=== PATIENT | male | born 1955 | race African-American/Black ===

== ENCOUNTER 2017-12-07 22:37 | Inpatient (IN) | payer OTHER ==
[~2017-12-07] VITALS: Ht 152.4 cm; Wt 61.4 kg
--- NOTE | ~2017-12-07 | EKG ---
[address] [address] ELECTROCARDIOGRAM REPORT Name: SETH POTTS Room #: 463-P ADM IN M.R.#: [id number] Admission: 12/08/17 Attend Phys: Erwin Self Discharge: Date of : 55 Report #: [id number] THIS REPORT FOR: //name// [facility] ED Test Date: 2017-12-07 Test Time: 23:05:02 Pat Name: SETH CESARHAMMAD Department: Room: [facility] Gender: M Wine Manager: AMANDA : 1955 Requested By: Julio Cesar Vidal Order Number: [id number] MD: Eduard Paul Measurements Intervals [place] Rate: 129 P: 87 W[place]: 131 QRS: 79 QRSD: 90 T: -58 QT: 290 QTc: 425 Interpretive Statements Sinus tachycardia Nonspecific T abnormalities, lateral leads Artifact in lead(s) I,II,III,aVR,aVL,aVF,V1,V2,V3,V4,V5,V6 Compared to ECG 01/24/2016 00:39:19 No significant changes Electronically Signed On 12-08-2017 7:17:04 CDT by Eduard Paul [email or web address] <ELECTRONICALLY SIGNED> By: Eduard Paul MD 12/08/17716 04 04 Eduard Paul MD /EPI
--- NOTE | ~2017-12-07 | HC ---
[facility] [place] [address] CONSULTATION Name: SETH POTTS Maliha Room #: 463-P ADM IN ..#: [id number] Admission: 12/08/17 Attend Phys: Erwin Self Discharge: Date of : 55 Report #: [id number] THIS REPORT FOR: //name// CC: ULISSES physician/PCP FAM unknown Erwin Self DATE OF SERVICE: 12/08/2017 CHIEF COMPLAINT: Sacral and right ischial pressure ulcerations and quadriplegia. HISTORY OF PRESENT ILLNESS: This is a 61-year-old male patient with whom I am familiar from prior hospitalization. He had been admitted in 10/2017. The patient has a history of quadriplegia, chronic back pain. He has a history of respiratory failure with tracheostomy. During that hospitalization, he underwent surgical debridement of the sacral and right ischial pressure ulcerations and was started on a wound VAC. He has been doing well since that time. He was admitted this visit because of shortness of breath and diaphoresis. He denies any problems with his wounds. He has had ongoing care with a wound VAC. PAST MEDICAL HISTORY: Positive for history of quadriplegia secondary to spinal cord injury, diabetes, respiratory failure requiring tracheostomy, hepatitis C, as well as stage 4 pressure ulcerations. 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 SOCIAL HISTORY: The patient has a history of smoking cigarettes. Denies current use. Denies alcohol use. FAMILY HISTORY: Noncontributory. MEDICATIONS: Include albuterol and ipratropium, amitriptyline, baclofen, Caltrate, fentanyl, fluconazole, gabapentin, insulin, oxycodone, metoprolol, Zosyn, Xarelto, sertraline. ALLERGIES: LISINOPRIL, ALPRAZOLAM, CODEINE, ROFECOXIB. FAMILY HISTORY: Noncontributory. REVIEW OF SYSTEMS: CONSTITUTIONAL: Denies fever, chills, or weight loss. NEUROLOGICAL: The patient denies focal weakness. ENT: The patient denies earache, nasal drainage, sore throat. CARDIOVASCULAR: The patient denies chest pain, palpitations or diaphoresis. [address] [address] CONSULTATION Name: SETH POTTS Maliha Room #: 3[facility] IN ..#: [id number] Admission: 12/08/17 Attend Phys: Erwin Self Discharge: Date of : 55 Report #: [id number] PULMONARY: The patient does complain of some cough and some mild shortness of breath. GASTROINTESTINAL: The patient denies nausea, abdominal pain. ORTHOPEDIC: The patient is aware of the ulcerations. Other systems in a 14-point review of systems are negative. PHYSICAL EXAMINATION: VITAL SIGNS: At this time include temperature of 37.2, pulse rate 117, respiratory rate of 20, blood pressure 146/75. GENERAL: This is a chronically ill, very thin-appearing male patient who appears to be in no distress. HEENT: Head normocephalic. Extraocular movements intact. Pupils equal, round, and reactive to light and accommodation. Nose and throat are clear. NECK: Demonstrates tracheostomy capped. LUNGS: Diminished. HEART: Regular rhythm. ABDOMEN: Soft. Bowel sounds present. PELVIC: Region demonstrates a stage 4 sacral and right ischial pressure ulcerations that are healthy, clean and granulating, much improved since I last saw him. EXTREMITIES: Lower extremities show no evidence of current ulceration. CLINICAL IMPRESSION: 1. Stage 4 sacral and right ischial pressure ulceration. 2. Quadriplegia secondary to previous spinal cord injury. 3. Diabetes mellitus. 4. Respiratory failure. 5. Hepatitis C. RECOMMENDATIONS: At this point in time, we will continue [employer] wound VAC. He will need aggressive nutritional support to maximize wound healing and maintain glycemic control. He will need low air loss mattress, keep turning and repositioning and Prevalon boots to both lower extremities. I appreciate being asked to see him in consultation. <ELECTRONICALLY SIGNED> By: Santana Gomez MD 12/10/17 0738 [id number] 0003 Santana Gomez MD /nt
[~2017-12-07 22:37] MED LIST: ACETYLCYST100 MG/1 M INH; AMITRIPTYLINE H25 M2 PER TUBE; ARTIFICIAL TEA1 EACH INTRAOCULR; ASPIR 8181 MG PER TUBE; BARRIER CREAM TOP; BISCOLAX10 MG RECTAL; CALCIUM 600 +1 EAC1 PO; CENTRUM SILVER1 EAC2 PER TUBE; COLACE100 MG PER TUBE; DIFLUCAN200 MG IV; DILAUDID1 MG/1 ML IV; DUONEB 2.5-0.5 M3 ML INH; FENTANYL PATCH75 MCG TOP; FLAGYL500 MG IV; FUROSEMIDE40 MG/4 ML IV; GUIATUSSIN DAC473 ML PER TUBE; HEPARIN SO5000 UNIT/ SUBQ; HEPARIN SUBQ; HYDROCODONE-APA1 TA1 PER TUBE; ISOSOURCE 1.5250 ML PER TUBE; KLOR-CON 1010 MEQ PER TUBE; LASIX 40 MG TAB40 M2 IV; LEVOFLOXAC250 MG/50 IV; LINEZOLID600 MG; LIORESAL 10 MG10 MG PO; LOPRESSOR25 PO; METAMUCIL PAC1 UDPKT PER TUBE; METOPROLOL TARTRATE IV; MILK OF MA2400 MG/10 PER TUBE; MIRALAX17 GM PER TUBE; NEURONTIN600 MG PER TUBE; NORCO 7.5-3251 EACH PO; NOVOLOG100 UNIT/1 SUBQ; OMEPRAZOLE20 M1 PER TUBE; OXYCODONE HCL 55 MG PER TUBE; PAROEX473 ML PO; ROBITUSSIN15 MG/5 ML PER TUBE; SILVADENE20 GM TOP; TYLENOL325 MG PO; XARELTO10 MG PER TUBE; ZOLOFT50 MG PER TUBE; ZOSYN 3.3753.375 GM IV; ZYVOX600 MG/300 IV
[2017-12-07 22:46] VITALS: BP 143/86
[2017-12-07 23:43] LABS: BE(vivo) 2.1 mmol/L (-2 to +3); PO2 147.1 mmHg (80.0-100.0); pH 7.453 (7.360-7.450)
[2017-12-07 23:50] LABS: URINE BILIRUBIN NEGATIVE (Negative); URINE BLOOD 3+ (Negative); URINE CLARITY SL CLOUDY; URINE COLOR YELLOW; URINE GLUCOSE-RANDOM* NEGATIVE (Negative); URINE KETONES 3+ (Negative); URINE NITRITE-REFLEX NEGATIVE (Negative); URINE PROTEIN (DIPSTICK) 2+ (Negative); URINE SPECIFIC GRAVITY >= 1.030 (1.005-1.035); URINE UROBILINOGEN 0.2 E.U./dl (0.2-1.0)
[2017-12-07 23:57] LABS: ABSOLUTE NEUTROPHILS 7.5 thou/uL (1.4-8.2); BASOPHILS 0.3 % (0.0-2.0); EOSINOPHILS 0.2 % (0.0-3.0); HEMATOCRIT 38.1 % (42.0-52.0); HEMOGLOBIN 12.7 gm/dL (14.0-18.0); LYMPHOCYTES 10.9 % (24.0-44.0); MCH 29.3 pg (26.0-34.0); MCHC 33.2 g/dL (28.0-37.0); MCV 88.2 fL (80.0-100.0); MONOCYTES 9.2 % (1.0-8.0); PLATELET COUNT 330 thou/uL (150-400); POLYS 79.4 % (36.0-66.0); RBC 4.32 mil/uL (4.50-6.00); RDW 21.4 % (10.5-14.5); WBC 9.4 thou/uL (4.0-11.0)
[2017-12-08 00:07] LABS: URINE LEUKOCYTES-REFLEX 1+ (Negative)
[2017-12-08 00:09] LABS: URINE REDUCING SUBSTANCE 0 %
[2017-12-08 00:14] LABS: BACTERIA-REFLEX 1-9 Few /HPF (None Seen); CALCIUM OXALATE 0-3 Few /LPF (None Seen); HYALINE CASTS 0-3 Few /LPF (None Seen); MUCUS 4-6 Moderate strn/LPF (None Seen); SQUAMOUS None Seen /LPF (0-3); URINE RBC >20 Many /HPF (0-2)
[2017-12-08 00:15] LABS: YEAST-REFLEX Present (None Seen)
[2017-12-08 00:38] LABS: ANION GAP 7 mmol/L (7-16); BUN 14 mg/dL (7-18); CALCIUM 10.5 mg/dL (8.5-10.1); CHLORIDE 96 mmol/L (98-107); CO2 30 mmol/L (21-32); CREATININE 0.8 mg/dL (0.7-1.3); GLUCOSE 98 mg/dL (74-106); POTASSIUM 4.2 mmol/L (3.5-5.1); SODIUM 133 mmol/L (136-145)
[2017-12-08 00:46] LABS: TROPONIN-I <0.06 ng/mL (<0.06)
[2017-12-08 03:09] VITALS: BP 117/74
[2017-12-08 03:30] VITALS: BP 101/124
[2017-12-08] MEDS ORDERED: SYNTHROID50 MCG PO (03:56)
[2017-12-08 08:00] VITALS: BP 146/75
[2017-12-08 20:14] VITALS: BP 131/95
[2017-12-09 08:05] VITALS: BP 113/66
[2017-12-09 19:42] VITALS: BP 114/65
[2017-12-10 08:06] VITALS: BP 137/63
[2017-12-10 19:14] VITALS: BP 124/77
[2017-12-11 08:18] VITALS: BP 122/75
[2017-12-11] MEDS ORDERED: TYLENOL325 MG PO (09:27)
[2017-12-11] MEDS ORDERED: FLUCONAZOLE 10100 MG PO (09:27)
[2017-12-11] MEDS ORDERED: LIORESAL 10 MG10 MG PO (09:27)
[2017-12-11] MEDS ORDERED: LOPRESSOR25 PO (09:27)
[2017-12-11] MEDS ORDERED: XARELTO10 MG PER TUBE (09:27)
[2017-12-11] MEDS ORDERED: CALCIUM 600 +1 EAC1 PO (09:28)
[2017-12-11] MEDS ORDERED: AMITRIPTYLINE H25 M2 PER TUBE (09:28)
[2017-12-11] MEDS ORDERED: NEURONTIN600 MG PER TUBE (09:28)
[2017-12-11] MEDS ORDERED: ZOLOFT50 MG PER TUBE (09:28)
[2017-12-11] MEDS ORDERED: SYNTHROID50 MCG PO (09:28)
[2017-12-11] MEDS ORDERED: SILVADENE20 GM TOP (09:29)
[2017-12-11 11:07] LABS: HEMATOCRIT 33.1 % (42.0-52.0); HEMOGLOBIN 10.7 gm/dL (14.0-18.0); MCH 29.5 pg (26.0-34.0); MCHC 32.2 g/dL (28.0-37.0); MCV 91.5 fL (80.0-100.0); RBC 3.62 mil/uL (4.50-6.00); RDW 20.2 % (10.5-14.5); WBC 5.5 thou/uL (4.0-11.0)
[2017-12-11 19:59] VITALS: BP 132/78
[2017-12-12 13:52] VITALS: BP 142/85
[2017-12-12 19:39] VITALS: BP 130/78
[2017-12-13 08:47] VITALS: BP 109/75
[2017-12-13 11:50] VITALS: BP 109/75
[2017-12-13 12:57] VITALS: BP 109/75
== END 2017-12-13 16:09 | disposition home health service (06) | DRG 189 ==
LOC: ER 22:37 → EROBS 12-08 02:15 → 4W 12-08 03:02
PROVIDERS: Emergency Medicine; Hospitalist
DX: J96.21 Acute and chronic respiratory failure with hypoxia (principal); L89.154 Pressure ulcer of sacral region, stage 4; L89.314 Pressure ulcer of right buttock, stage 4; L89.224 Pressure ulcer of left hip, stage 4; G82.50 Quadriplegia, unspecified; N39.0 Urinary tract infection, site not specified; E46 Unspecified protein-calorie malnutrition; R65.10 Systemic inflammatory response syndrome (SIRS) of non-infectious origin without acute organ dysfunction; E11.9 Type 2 diabetes mellitus without complications; G89.29 Other chronic pain; M54.9 Dorsalgia, unspecified; B19.20 Unspecified viral hepatitis C without hepatic coma; B37.9 Candidiasis, unspecified; Z86.19 Personal history of other infectious and parasitic diseases; Z79.899 Other long term (current) drug therapy; Z88.8 Allergy status to other drugs, medicaments and biological substances; Z93.0 Tracheostomy status; Z85.21 Personal history of malignant neoplasm of larynx; Z92.21 Personal history of antineoplastic chemotherapy; Z87.891 Personal history of nicotine dependence; Z79.4 Long term (current) use of insulin; Z88.6 Allergy status to analgesic agent; Z93.3 Colostomy status; Z68.26 Body mass index [BMI] 26.0-26.9, adult
CPT/HCPCS: 10045

== ENCOUNTER 2018-04-20 15:31 | Inpatient (IN) | payer OTHER ==
[~2018-04-20] VITALS: Ht 165.1 cm; Wt 45.8 kg
--- NOTE | ~2018-04-20 | HC ---
[facility] [place] [address] CONSULTATION Name: POTTS,ANN A Room #: 459-P [facility] IN ..#: [id number] Admission: 04/20/18 ������������������ Attend Phys: Shaggy Ayoub MD Discharge: 04/29/18 ������������������ Date of : 55 Report #: [id number] THIS REPORT FOR: //name// CC: [facility]ISSES physician/PCP Shaggy Ayoub DATE OF SERVICE: 04/21/2018 CHIEF COMPLAINT: Sacral and ischial pressure ulcerations. HISTORY OF PRESENT ILLNESS: This is a 62-year-old male patient with whom I am familiar from multiple previous hospitalizations, who was admitted to the hospital through the Emergency Department for worsening shortness of breath and diaphoresis for the last 2 days. The patient is quadriplegic. He has a tracheostomy. He has had multiple evaluations for his sacral wounds. He has had previous surgical debridement. He was recently at [facility] and he returned home 2 days ago and has had shortness of breath since that time. ALLERGIES: ALPRAZOLAM, CODEINE, LISINOPRIL AND VIOXX. MEDICATIONS: Include Zosyn, Synthroid, Artificial Tears, Silvadene, Tylenol, Neurontin, Lopressor, Zoloft, Xarelto, Lioresal, Elavil and Caltrate. PAST MEDICAL HISTORY: The patient's past medical history is positive for quadriplegia, diabetes mellitus, respiratory failure, hepatitis C, stage 4 pressure ulcerations of the sacrum and ischium and chronic anemia. His quadriplegia is due to diskitis at the C3 through C5 level secondary to a streptococcal abscess. He has a history of epiglottic cancer and has previously been on chemotherapy. He has a history of dysphagia, requiring a PEG tube. He has a suprapubic catheter and a colostomy. SOCIAL HISTORY: The patient has had a history of smoking, which he quit in 2016. No history of alcohol use. FAMILY HISTORY: Noncontributory. REVIEW OF SYSTEMS: Reviewed and a 14-point review of systems is negative, other than that mentioned in the history of present illness. PHYSICAL EXAMINATION: VITAL SIGNS: At this time include temperature 34.8, pulse 112, respiratory rate of 20 and blood pressure 138/82. GENERAL: This is a chronically ill-appearing male patient who appears to be in mild discomfort. He has an audible stridor. HEENT: Head normocephalic. NECK: Demonstrates tracheostomy. [facility] [address] [place] [address] CONSULTATION Name: SETH POTTS Maliha Room #: 459-P [facility]#: [id number] Admission: 04/20/18 ������������������ Attend Phys: Shaggy Ayoub MD Discharge: 04/29/18 ������������������ Date of : 55 Report #: [id number] LUNGS: Coarse. Breath sounds are obscured by stridor. HEART: Tachycardic, without murmur. ABDOMEN: Soft. Suprapubic catheter and colostomy are noted. GENITOURINARY: Pelvic region demonstrates stage 4 pressure ulcerations of the sacrum and right ischial region. There is a mix of some granulation and fibrin; a little bit of odor noted as well. There is palpable bone in the base, but there is also good granulation tissue throughout. EXTREMITIES: Lower extremities demonstrate no breakdown on the lower extremities. NEUROLOGIC: The patient is quadriplegic. He is awake and alert. He does answer some questions. LABORATORY DATA: Sodium 130, potassium 4.3, chloride 94, BUN 9 and creatinine 0.5. Lactic acid is 1.0. Calcium is 8.5. C-reactive protein is markedly elevated at 235. Procalcitonin 0.18. White blood cell count 20.4 with a hemoglobin of 11.4 and hematocrit of 36.9. CLINICAL IMPRESSION: 1. Stage 4 pressure ulcerations to the sacrum and right ischium, chronic. 2. Probable underlying chronic osteomyelitis. 3. Pulmonary infection. 4. History of epiglottic cancer. RECOMMENDATIONS: At this point in time, a wound VAC may be beneficial to the sacral and right ischial ulcers. I think we will start with some Dakin's moist gauze, however, to get these areas cleaned up a little bit as there is some odor and drainage noted. He will need a low air loss mattress and q. 2 hour turning and repositioning and PRAFO boots to protect his heels bilaterally. He will need nutritional consult to maximize his wound healing and glycemic control. At this point in time, his pulmonary issues seem significant. He has previously had a surgical debridement. I am not sure if he would gain that much more with additional surgical debridement, although it could be considered once his pulmonary status has improved. I appreciate being asked to see the patient in consultation. ��������������������������������������������� ���������������������������������������� By: ��������������������������������������������� 1312 2331 Santana Gomez MD /nt
--- NOTE | ~2018-04-20 | HC ---
[facility] [place] [address] CONSULTATION Name: OPTTSVIDYAANN A Room #: 459-P ADM IN M.R.#: [id number] Admission: 04/20/18 ������������������ Attend Phys: Shaggy Ayoub MD Discharge: ������������������ Date of : 55 Report #: [id number] THIS REPORT FOR: //name// CC: [facility] physician/PCP Shaggy Ayoub TYPE OF REPORT: Pulmonary consultation. REFERRAL PHYSICIAN: Shaggy Ayoub M.D. REASON FOR REFERRAL: Pneumonia. HISTORY OF PRESENT ILLNESS: The patient is a 62-year-old [place] male who was brought to the Emergency Room with dyspnea. Chest x-ray showed increasing pleural effusion and infiltrates. The patient was admitted for pneumonia. A Pulmonary consultation was requested. The patient has an extensive medical history. In 2016, he was diagnosed of epiglottic cancer. He developed diskitis involving C3-C5 area due to Streptococcus abscess. This resulted in quadriplegia. He has required a tracheostomy ever since. He has since been to LTAC in the past. He currently resides at home, getting home health for trach care and on other daily activity care. He was last hospitalized in December 2017 for sepsis due to UTI. He has known stage 4 sacral decubital ulcers. He is in his normal state of health until one day prior to presentation. The patient noted to have fever, dyspnea along with a productive cough. Chest x-ray as mentioned above showing increase in the right-sided pleural effusion, right lower lobe infiltrates. Of note, the patient had prior chest x-ray showing chronic right-sided pleural effusion. He has also had infiltrates in the right side in the past. PAST MEDICAL HISTORY: As mentioned above. Also, has a history of diabetes mellitus, hepatitis C, malnutrition, chronic anemia, status post PEG tube, suprapubic catheter placement and colostomy. PAST SURGICAL HISTORY: As mentioned above. ALLERGIES: To ALPRAZOLAM, CODEINE, LISINOPRIL and ROFECOXIB, reactions not specified. MEDICATIONS: From home include baclofen, Neurontin, Zoloft and levothyroxine. FAMILY HISTORY: Noncontributory. [address] [address] CONSULTATION Name: SETH POTTS Room #: 459-P [facility] IN [facility]#: [id number] Admission: 04/20/18 ������������������ Attend Phys: Shaggy Ayoub MD Discharge: ������������������ Date of : 55 Report #: [id number] SOCIAL HISTORY: No recent tobacco or alcohol use. REVIEW OF SYSTEMS: As mentioned above. It is notable for progressive muscle debility, muscle atrophy and weakness. PHYSICAL EXAMINATION: GENERAL: The patient is awake, eyes are open. He does not verbalize. VITAL SIGNS: Temperature is 98.7 degrees Fahrenheit, pulse 120, respiratory rate is 20, blood pressure is 100/62 mmHg and saturation 98%. HEENT: Normocephalic and atraumatic. NECK: Status post tracheostomy. CHEST: Breath sounds are decreased due to poor effort, is absent in the right base. No obvious wheezes. Scattered crackles are heard in the bases. CARDIOVASCULAR: Normal S1 and S2. There are no obvious murmurs or gallop. Pulses are 2+/4+ bilaterally. ABDOMEN: Soft and nontender noted for PEG tube in the upper epigastric area. GENITOURINARY: Deferred. RECTAL: Deferred. EXTREMITIES: No cyanosis, clubbing or edema. MUSCULOSKELETAL: Notable for marked muscle atrophy. LABORATORY DATA: Showing moderate right-sided pleural effusion, infiltrates in the right lower lobe, left lung field relatively clear. Compared to the previous chest x-ray from 04/20/2018, there has been slight increase in right pleural effusion. Chest x-ray from December 2017 shows no infiltrates in the lung duron; however, mild right-sided pleural effusion is seen. Electrolytes are normal, creatinine is 0.6. WBC 11,800 and hemoglobin 8.8. Albumin 1.3. IMPRESSION: 1. Progressive right-sided infiltrates, right-sided pleural effusion in this 62-year-old Tamazight male. Pneumonia is likely. With the pleural effusion, atelectasis also likely present. 2. Quadriplegia due to diskitis involving C3-C5 due to streptococcal abscess. 3. History of epiglottic cancer in 2016. 4. Progressive debility and weakness due to above. 5. Chronic tracheostomy. Wonder if the patient will benefit from positive pressure ventilation given quadriplegia chronically. 6. Chronic right-sided pleural effusion. As mentioned above. It is worse on this admission. Need to rule out complicated pleural effusion. 7. History of diabetes mellitus type 2. 8. Hepatitis C. 9. Stage 4 sacral decubitus ulcer. 10. Severe protein-calorie malnutrition. 11. Dysphagia, status post percutaneous endoscopic gastrostomy. 12. Status post colostomy, status post suprapubic catheter. [facility] [address] [place] [address] CONSULTATION Name: SETH POTTS Room #: 459-P ADM IN M.R.#: [id number] Admission: 04/20/18 ������������������ Attend Phys: Shaggy Ayoub MD Discharge: ������������������ Date of : 55 Report #: [id number] RECOMMENDATIONS: The patient will benefit from diagnostic thoracentesis on the right. Agree with broad-spectrum antibiotics. Recent culture grew Staphylococcus aureus, sensitivities pending. As mentioned above, we would also strongly consider positive pressure ventilation, perhaps during sleep or p.r.n. in this patient with quadriplegia. DVT and GI prophylaxis will be addressed. Thank you for this consultation. ��������������������������������������������� ���������������������������������������� By: ��������������������������������������������� 1532 2219 Lele Weeks MD /nt
[2018-04-20 15:31] VITALS: BP 118/67
[~2018-04-20 15:31] MED LIST changes: +FLUCONAZOLE 10100 MG PO; +SYNTHROID50 MCG PO
--- NOTE | 2018-04-20 15:55 | NUR ---
IV RUE IN PLACE BY [facility] REQUESTED IV TEAM REQUESTED WELL
--- NOTE | 2018-04-20 16:07 | NUR ---
IV TEAM AT BEDSIDE
[2018-04-20 16:37] LABS: HEMATOCRIT 22.2 % (42.0-52.0); HEMOGLOBIN 6.9 gm/dL (14.0-18.0); MCH 24.5 pg (26.0-34.0); MCHC 31.1 g/dL (28.0-37.0); MCV 78.8 fL (80.0-100.0); PLATELET COUNT 632 thou/uL (150-400); RBC 2.82 mil/uL (4.50-6.00); RDW 21.7 % (10.5-14.5); WBC 20.4 thou/uL (4.0-11.0)
[2018-04-20 16:47] LABS: ANION GAP 2 mmol/L (7-16); BUN 9 mg/dL (7-18); CALCIUM 8.5 mg/dL (8.5-10.1); CHLORIDE 94 mmol/L (98-107); CO2 34 mmol/L (21-32); CREATININE 0.5 mg/dL (0.7-1.3); GLUCOSE 88 mg/dL (74-106); POTASSIUM 4.3 mmol/L (3.5-5.1); SODIUM 130 mmol/L (136-145)
[2018-04-20 16:57] LABS: TROPONIN-I <0.06 ng/mL (<0.06)
[2018-04-20 17:05] LABS: ABSOLUTE NEUTROPHILS 18.6 thou/uL (1.4-8.2)
[2018-04-20 17:06] LABS: ANISOCYTOSIS 2+; HYPOCHROMASIA 1+; MICROCYTES 1+
[2018-04-20 17:07] LABS: POIKILOCYTOSIS SLIGHT; POLYCHROMASIA OCCASIONAL
[2018-04-20 17:46] LABS: APTT 33.8 Seconds (24.5-32.8); INR 1.1; PROTIME 11.9 Seconds (9.3-11.4)
[2018-04-20 18:10] VITALS: BP 124/64
[2018-04-20 18:26] VITALS: BP 121/66
--- NOTE | 2018-04-20 19:10 | EKG ---
[address] [address] ELECTROCARDIOGRAM REPORT Name: SETH POTTS Room #: 459- ADM IN .R.#: [id number] ������������������ Admission: 04/20/18 ������������������ Attend Phys: Shaggy Ayoub MD Discharge: ������������������ Date of : 55 Report #: [id number] ����������������������������������������������������������������� [id number] THIS REPORT FOR: //name// [facility] ED Test Date: 2018-04-20 Test Time: 15:38:21 Pat Name: SETH POTTS Department: Room: [facility] Gender: M Newspaper Carrier: : 1955 Requested By: Julio Cesar Vidal Order Number: [id number] MD: Delbert Lamar Measurements Intervals [place] Rate: 131 P: 78 [place]: 112 QRS: 76 QRSD: 64 T: QT: 302 QTc: 446 Interpretive Statements Sinus tachycardia Nonspecific ST-T wave changes AC noise noted Compared to ECG 12/07/2017 23:05:02 No significant changes Electronically Signed On 04-20-2018 19:10:32 SCIENTIFIC PUBLICATIONS EDITOR by Delbert Lamar [email or web address] ��������������������������������������������� <ELECTRONICALLY SIGNED> ���������������������������������������� By: Delbert Lamar MD ��������������������������������������������� 04/20/18 1910 1538 1538 Delbert Lamar MD /EPI
[2018-04-20 20:52] VITALS: BP 105/62
[2018-04-21 02:38] VITALS: BP 122/66
[2018-04-21] MEDS ORDERED: OXYCODONE HCL15 MG PO (03:40)
[2018-04-21 07:55] VITALS: BP 118/64
--- NOTE | 2018-04-21 08:51 | NUR ---
PROGRESS PT ALERT AND ORIENTED, RATING PAIN TO NECK AND BACK AT A 5 TO 8 TAKING MORPHINE WITH EFFECT REQUESTING IT EVERY FEW HOURS PICTURES OF WOUNDS TO RIGHT BUTTOCK AND SACRUM PHOTOGRAPHED AND MEASURED REDRESSED WITH WET TO DRY DRESSING WOUND BED HAD SOME YELLOW FIBRINOGEN TISSUE SOME GRANULATION TISSUE NOTED BLOODY DISCHARGE NO ODOR DETECTED. CONTINUE TO MONITOR TURN Q2HRS AND PRN.
[2018-04-21 09:50] VITALS: BP 136/71; BP 92/61
[2018-04-21 12:28] LABS: URINE BILIRUBIN NEGATIVE (Negative); URINE BLOOD NEGATIVE (Negative); URINE CLARITY CLEAR; URINE COLOR YELLOW; URINE GLUCOSE-RANDOM* NEGATIVE (Negative); URINE KETONES TRACE (Negative); URINE LEUKOCYTES-REFLEX NEGATIVE (Negative); URINE NITRITE-REFLEX NEGATIVE (Negative); URINE UROBILINOGEN 0.2 E.U./dl (0.2-1.0)
[2018-04-21 12:33] LABS: URINE PROTEIN (DIPSTICK) 1+ (Negative)
--- NOTE | 2018-04-21 12:43 | NUR ---
Assumed pt care at 0645. pt having issues keeping o2 sat up. worked with resp to have treatments ordered q4. also put o2 on trach with danilo. now staying in the 90's. given one unit of blood and will have h/h redrawn. will continue to [facility]
[2018-04-21 13:49] LABS: HEMATOCRIT 36.9 % (42.0-52.0)
[2018-04-21 13:50] LABS: HEMOGLOBIN 11.4 gm/dL (14.0-18.0)
[2018-04-21 13:56] VITALS: BP 138/82
--- NOTE | 2018-04-21 15:40 | NUR ---
PT ADMITTED RELATED TO HCAP AND ANEMIA. DAVID REVIEWED CHART AND SPOKE WITH CARE TEAM. CM MET WITH PT AT BEDSIDE THIS DAY PT WAS GETTING O2 THROUGH HIS TRACH AND WAS HAVING DIFFULCTY SPEAKING. CM CALLED PT'S CAREGIVER ANATOLY AND SHE INDIATED THAT PT RESIDES IN A HOUSE WITH A RAMP TO ENTER. SHE INDICATED PT HAD HCBS THROUGH [facility] [employer] 7 DAYS A WEEK. SHE INDICATED THAT HAD BEEN ON SERVICE WITH [facility] DR[facility] CLIP[facility] AND THAT THEY WOULD LIKE TO USE THEM AGAIN UPON DC. ANATOLY ASKED IF PT COULD GET HOME O2 UPON DC, CM INDICATED THAT CM WOULD CONVEY QUESTION TO CARE TEAM. CM TO FOLLOW INDICATED WITH DC PLANNING.
[2018-04-21 20:03] VITALS: BP 127/34
[2018-04-22 04:58] VITALS: BP 116/50
[2018-04-22 05:38] LABS: HEMATOCRIT 27.9 % (42.0-52.0); MCH 26.1 pg (26.0-34.0); MCHC 31.6 g/dL (28.0-37.0); MCV 82.4 fL (80.0-100.0); RBC 3.39 mil/uL (4.50-6.00); RDW 19.9 % (10.5-14.5); WBC 15.1 thou/uL (4.0-11.0)
[2018-04-22 05:40] LABS: HEMOGLOBIN 8.8 gm/dL (14.0-18.0)
[2018-04-22 05:54] LABS: ALBUMIN 1.4 g/dL (3.4-5.0); CREATININE 0.5 mg/dL (0.7-1.3); PHOSPHORUS 2.4 mg/dL (2.5-4.9); POTASSIUM 3.7 mmol/L (3.5-5.1)
[2018-04-22 07:16] VITALS: BP 124/67
--- NOTE | 2018-04-22 07:54 | NUR ---
Pt. rested quietly at intervals during the night when checked on during frequent rounds. He was given pain meds for c/o back pain (see emar) with partial relief of pain noted. Tube feeding patent upon ausculation and in- fusing without difficulty. Head of the bed is elevated. He has had to be suctioned at times during the shift and tolerated it well. Pt. turned and repositioned.
--- NOTE | 2018-04-22 10:02 | HC ---
[facility] [place] [address] CONSULTATION Name: POTTSSETH IVORY Maliha Room #: 459-P [facility] IN M.R.#: [id number] Admission: 04/20/18 ������������������ Attend Phys: Shaggy Ayoub MD Discharge: ������������������ Date of : 55 Report #: [id number] THIS REPORT FOR: //name// CC: [facility] physician/PCP Shaggy Ayoub DATE OF SERVICE: 04/21/2018 ATTENDING PHYSICIAN: Dr. Ayoub. REASON FOR CONSULTATION: Pneumonia. Sacral decubitus. Antibiotic management. HISTORY OF PRESENT ILLNESS: A 62-year-old -Citizen Of [place] man, admitted with increasing shortness of breath and sputum production as well as fever. The patient is quadriplegic secondary to cervical spine infection in the year 2016 and status post permanent tracheostomy, gastrostomy, diverting colostomy, suprapubic cystostomy, chronic sacral decubitus, recent episode of pneumonia [facility]. DRUG ALLERGIES: ALPRAZOLAM, CODEINE, LISINOPRIL, ROFECOXIB. MEDICATIONS: The patient is currently on treatment with Zosyn 3.375 grams IV every 8 hours, vancomycin 750 mg IV every 12 hours, also receiving treatment with sertraline, levothyroxine, p.r.n. morphine sulfate, Atrovent/albuterol inhalation treatments, gabapentin, baclofen, pantoprazole. The patient has received levofloxacin 750 mg IV single dose. 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 Chronic tracheostomy. Status post percutaneous gastrostomy, suprapubic cystostomy, diverting colostomy, sacral decubitus, chronic with evidence of previous osteomyelitis; anemia of chronic disease, question gastrointestinal bleeding. SOCIAL HISTORY: See H and P, old records. FAMILY HISTORY: See H and P, old records. REVIEW OF SYSTEMS: As above. PHYSICAL EXAMINATION: GENERAL: Chronically ill-appearing man. VITAL SIGNS: Temperature maximum 99.1, pulse 90, respirations 20, BP as low as 93/69, currently 119/64, O2 saturation 98% on FiO2 of 35%. HEENMT: Head normocephalic, atraumatic. Pupils reactive, arcus cornealis. Mouth, missing teeth. [facility] [address] [place] [address] CONSULTATION Name: SETH POTTS Maliha Room #: 459-P [facility] IN [facility]#: [id number] Admission: 04/20/18 ������������������ Attend Phys: Shaggy Ayoub MD Discharge: ������������������ Date of : 55 Report #: [id number] NECK: Revealed tracheostomy in place. LUNGS: Few rhonchi. HEART: S1, S2. No gallop or murmur. ABDOMEN: With diverting colostomy, suprapubic cystostomy and percutaneous gastrostomy. Stool in colostomy. NEUROLOGIC: Revealed quadriplegia and atrophy of muscle groups. BACK: Reveals stage IV sacral decubitus with exposed deep structures. EXTREMITIES: No clubbing, cyanosis. Atrophy of muscle groups. LABORATORY DATA: Sodium 130, potassium 4.3, BUN 9, creatinine 0.5. Protime 11.9 seconds. WBC elevated at 20,400, hemoglobin 6.9 g/dL, platelets 632,000. The white blood cell count differential revealed 91% segmented neutrophil. Influenza A and B rapid tests were negative. MRSA screen pending. MICROBIOLOGY DATA: Sputum and blood cultures were obtained and those are pending at the time of this dictation. IMAGING: Chest x-ray obtained, revealed right basilar pulmonary infiltrate, not present previously. ASSESSMENT: 1. Right lower lobe pneumonia -- healthcare-associated pneumonia. 2. Chronic tracheostomy. 3. Quadriplegia secondary to cervical spine infection with Streptococcus species. 4. Status post gastrostomy, diverting colostomy and suprapubic cystostomy. 5. Stage 4 sacral decubitus and previous history of osteomyelitis. 6. Severe anemia. 7. Severe leukocytosis. SUGGESTIONS: Recommend continued treatment with vancomycin and Zosyn, may redose Levaquin. Obtain sputum and blood cultures as well as urinalysis, urine culture, MRSA screen. ESR and CRP also have been ordered. Dr. Ayoub, thank you for requesting my suggestions. ��������������������������������������������� <ELECTRONICALLY SIGNED> ���������������������������������������� By: Luke Paul MD ��������������������������������������������� 04/22/18 1002 0952 1331 Luke Paul MD /nt
--- NOTE | 2018-04-22 12:37 | NUR ---
CARE TEAM INDICATED THAT PT WILL LIEKLY BE HERE OVER THE WEEKEND. PT HAD BEEN ON SERVICE WITH [facility] NURSING HOME ADMINISTRATOR AND IF PT IS TO REUTN HOME HE WOULD LIKE TO USE THEM AGAIN UPON DC. PHONE: FAX: . CM TO FOLLOW INDICATED WITH DC PLANNING.
--- NOTE | 2018-04-22 12:55 | NUR ---
Nutrition: Current tube feeds meet 118% kcal needs, phos dropping. Pt appears to be at risk for refeeding syndrome. Severe malnutrition. REC decrease rate of tube feeds to 50 mL/hr and add Josué supplement BID to assist with wound healing.
[2018-04-22 14:27] VITALS: BP 131/78
--- NOTE | 2018-04-22 17:23 | NUR ---
WOUND CONSULT: PT. WAS SEEN TODAY BY DR. GUTIÉRREZ AND MYSELF. PT. IS WELL KNOWN TO THE WOUND CARE TEAM. PT. HAS RESOLVING STAGE 4 PRESSURE ULCERS TO HIS SACRUM AND RIGHT ISCHIAL TUBEROSITY. THERE ARE NO SIGNS OR SYMPTOMS OF INFECTION NOTED AT THIS TIME. RECOMMENDATIONS: WOUND CARE TO ALL SITES: GENTLY CLEANSE AREA WITH WOUND CLEANSER OR NORMAL SALINE, PACK WITH DAKIN MOIST KERLIX, COVER WITH ABD, SECURE WITH TAPE, COMPLETE CARES DAILY AND PRN. TURN Q2 HOURS KEEP PT. OFF WOUNDS MUCH POSSIBLE KEEP ON MAGDALENO MATRESS. PT. AND STAFF NURSE WERE INSTRUCTED ON PLAN OF CARE.
[2018-04-22 20:00] VITALS: BP 145/86
[2018-04-23 04:00] VITALS: BP 109/63
--- NOTE | 2018-04-23 04:58 | NUR ---
Pt. rested quietly at short intervals during the night when checked on during frequent rounds. Pt. heart rate was staying up in the 130's early part of the shift. Carmen DEMPSEY was called and notified with no new orders. Pain meds given for c/o pain to his back (see emar) with some relief noted. Pt. turned and repositioned. Bed alarm is on.
[2018-04-23 08:00] VITALS: BP 105/57
[2018-04-23 15:00] VITALS: BP 133/84
--- NOTE | 2018-04-23 18:37 | NUR ---
VSS-AFEBRILE. LUNGS COURSE IN ALL [place] BILATERALLY. COPIUS AMOUNTS OF WHITE SPUTUM FROM MOUTH AND TRACH. C/O GENERALIZED ALL OVER BODY PAIN. DR GONZALES ORDERED IV MORPHINE, PARTIAL RELIEF NOTED WITH ADMINISTRATION. ST CONSULT COMPLETED, SPEAKING VALVE AT BEDSIDE, ONLY TO BE USED IF RN, RT, OR ST IS IN ROOM WITH PATIENT. ORAL CARE AND TURNS EVERY TWO HOURS. TOLERATING TUBE FEEDING WITH NO RESIDUAL. ENCOURAGE PATIENT TO WORK ON COUGHING AND DEEP BREATHING TO HELP EXPECTORATE SECRETIONS, VERBALIZED UNDERSTANDING. CALLS APPROPRIATELY FOR ANY NEEDED ASSISTANCE.
[2018-04-23 20:01] VITALS: BP 127/78
[2018-04-24 03:30] VITALS: BP 125/75
--- NOTE | 2018-04-24 04:37 | NUR ---
Pt. rested quietly at intervals during the night when checked on during frequent rounds. He c/o chronic back pain and has been given pain meds (see emar) with some relief noted. Peg tube is patent upon auscultation and tube feeding infusing without difficulty. Pt. turned and repositioned. Bed alarm is on.
[2018-04-24 06:35] LABS: HEMOGLOBIN 8.8 gm/dL (14.0-18.0); MCH 26.3 pg (26.0-34.0); MCHC 31.4 g/dL (28.0-37.0); MCV 83.5 fL (80.0-100.0); RBC 3.35 mil/uL (4.50-6.00); WBC 11.8 thou/uL (4.0-11.0)
[2018-04-24 06:36] LABS: ALBUMIN 1.3 g/dL (3.4-5.0); CALCIUM 8.7 mg/dL (8.5-10.1); CREATININE 0.6 mg/dL (0.7-1.3); PHOSPHORUS 1.9 mg/dL (2.5-4.9); POTASSIUM 4.8 mmol/L (3.5-5.1)
[2018-04-24 07:45] VITALS: BP 106/62
--- NOTE | 2018-04-24 14:36 | NUR ---
TOWARDS POC PT A/O X4, VSS, AFEBRILE. PAIN MANAGED BY MEDS. ON CONT. TUBE FEEDING AT 55ML/HR GOAL RATE. NO RESIDUAL VOLUME NOTED. SUPRA CATH CARE AND COLOSTOMY CARE PROVIDED. PRN SUCTIONING DONE. PT HAD PICC LINE PLACEMENT THIS AFTERNOON. WOUND CARE AND DRESSING DONE. NO CONCERNS VOICED. WILL CONTINUE TO MONITOR.
--- NOTE | 2018-04-24 14:37 | NUR ---
CONSULTED TO PLACE A PICC FOR A PATIENT NEEDING MULTIPLE IV MEDS AND POSSIBLE DICHARGE WITH LINE IN THE NEAR FUTURE. ORDER AND CONSENT NOTED. THE PROCEDURE WELL BENIFITS AND RISKS DISCUSSED WITH THE PATIENT AND HE EXPRESSED UNDERSTANDING. DILATERAL ARMS WERE CONTRACTED AND DIFFICULT TO POSITION. A #5F DOUBLE LUMEN POWER PICC WAS PLACED PER HOSPITAL POLICY AFTER A BEDSIDE TIMEOUT WAS COMPLETE. THE LINE WAS TRIMMED TO 42C AND ADVANCED WITHOUT DIFFICULTY ON THE 2ND ATTEMPT. A STAT CHEST XRAY WAS ORDERED TO CONFIRM PLACEMENT. LINE NOTED TO BE IN THE SVC AND IN GOOD POSITION BY THE RADIOLOGIST. LINE RELEASED FOR USE
[2018-04-24 17:13] LABS: BE(vivo) 7.2 mmol/L (-2 to +3); PO2 63.9 mmHg (80.0-100.0); pH 7.451 (7.360-7.450); sO2 93.1 % (92.0-98.0)
[2018-04-24 19:29] VITALS: BP 134/86
[2018-04-25 03:15] VITALS: BP 94/50
[2018-04-25 05:41] LABS: HEMATOCRIT 23.7 % (42.0-52.0); HEMOGLOBIN 7.3 gm/dL (14.0-18.0); MCH 25.6 pg (26.0-34.0); MCHC 30.8 g/dL (28.0-37.0); MCV 83.1 fL (80.0-100.0); RBC 2.86 mil/uL (4.50-6.00); RDW 20.4 % (10.5-14.5)
[2018-04-25 05:49] LABS: CALCIUM 8.1 mg/dL (8.5-10.1); CREATININE 0.7 mg/dL (0.7-1.3); POTASSIUM 4.2 mmol/L (3.5-5.1)
[2018-04-25 05:52] LABS: APTT 35.4 Seconds (24.5-32.8); INR 1.1; PROTIME 11.4 Seconds (9.3-11.4)
[2018-04-25 08:00] VITALS: BP 98/55
--- NOTE | 2018-04-25 12:46 | NUR ---
Recommend recheck phosphorus and replace if needed. Recommend daily checks of phos, Mg, and K until labs have stabilized.
--- NOTE | 2018-04-25 14:46 | NUR ---
WOUND FOLLOW UP: PT. WAS SEEN TODAY BY DR. GUTIÉRREZ AND MYSELF. PT. WOUND'S ARE CLINICALLY BETTER TODAY. PT. DRESSING WERE CHANGED AND PT. HAD A VERY HARD TIME WITH TURNING TO ALLOW THIS TO HAPPEN. RECOMMENDATIONS: CONTINUE WITH CURRENT PLAN OF CARE. PT. AND STAFF NURSE WERE INSTRUCTED ON PLAN OF CARE.
[2018-04-25 15:00] VITALS: BP 93/53
--- NOTE | 2018-04-25 15:03 | NUR ---
CARE TEAM INDICATED THAT PT IS TO HAVE A THORACENTESIS THIS DAY. CM TO FOLLOW INDICATED WITH DC PLANNING.
[2018-04-25 19:15] VITALS: BP 91/50
--- NOTE | 2018-04-25 19:34 | NUR ---
PT ALERT AND ORIENTED TIMES FOUR. VSS, 100% TRACH, SR ON TELE. C/O BACK PAIN PRN PAIN MEDICATION GIVEN SEVERAL TIMES THIS SHIFT WITH SOME RELEIF. WOUND CARE DONE BY WOUND TEAM TODAY. PT TURNED FREQUENTLY THIS SHIFT. PT SLOWLY PROGRESSING TOWARDS POC GOALS.
--- NOTE | 2018-04-26 04:09 | NUR ---
Pt. rested at short intervals during the night when checked on during frequent rounds. He c/o chronic back pain and was given pain meds (see emar) with some relief of pain noted. Peg tube patent upon auscultation and tube feeding in- fusing without difficulty. Pt. turned and repositioned. Bed alarm is on.
[2018-04-26 07:30] VITALS: BP 119/66
--- NOTE | 2018-04-26 13:37 | NUR ---
dp sent referral to [facility] sometime this week. DP will call facility to ensure delivery of faxed referral.
[2018-04-26 14:10] VITALS: BP 97/59
--- NOTE | 2018-04-26 14:56 | NUR ---
CARE TEAM HAD DISCUSSED POSSIBLE NEED FOR LTAC UPON DISHCARGE. CM INDICATED THAT PT HAD BEEN TO [facility] IN THE PAST. REFERRAL WAS SENT FOR REVIEW FOR POSSIBLE ADMISSION. CM MET WITH PT AT BEDSIDE TO DISCUSS RECOMMENDATION AND POSSIBLE REFERRAL FOR ADMISSION. CM WASN'T ABLE TO UNDERSTAND WHAT PT WAS SAYING. CM CALLED PT'S CAREGIVER ANATOLY AND INDICATED THE ABOVE AND SHE INDICATED THAT PT WOULD NOT BE GOING TO A NURSING FACILITY AND PT WOULD DEFINATLY NOT BE RETURNING TO [facility]. CM CALLED AND NOTIFIED LINDESY THAT WE WOULD NOT BE NEEDING AN ONSIGHT VISIT TOMORROW. CM TO NOTIFY CARE TEAM AND FOLLOW INDICATED WITH DC PLANNING.
--- NOTE | 2018-04-26 16:40 | NUR ---
TOWARDS POC PT A/O X4, VSS, AFEBRILE, PAIN MANAGED BY MEDS. REMAINED IN O2 VIA TRACH SHIELD ON 10L O2. ON CONT. TUBE FEEDING AT 55ML/HR GOAL. NO RESIDUAL VOLUME NOTED, TOLERATING WELL. WOUND CARE AND DRESSING DONE. REMAINED IN ISOLATION. SOFT TOUCH CALL LIGHT IN PLACE. TURNS AND REPOSITIONING Q2 HRS. WILL CONTINUE TO MONITOR.
[2018-04-26 19:55] VITALS: BP 102/59
[2018-04-27 03:12] VITALS: BP 98/56
--- NOTE | 2018-04-27 07:02 | NUR ---
Assumed care at 1845. Pt resting in bed. No identified needs at the moment. Will continue to monitor.
[2018-04-27 07:20] VITALS: BP 111/66
--- NOTE | 2018-04-27 08:54 | NUR ---
WOUND FOLLOW UP: PT. WAS SEEN ON 04/26/[address] GUTIÉRREZ AND MYSELF. PT. DRESSING WERE C/D/I AT THIS TIME. PT. HAS A VERY HARD TIME WITH WOUND CARES DUE RESPIRATORY STATUS. RECOMMENDATIONS: CONTINUE WITH CURRENT PLAN OF CARE. PT. AND STAFF NURSE WERE INSTRUCTED ON PLAN OF CARE.
[2018-04-27 13:55] VITALS: BP 108/71
--- NOTE | 2018-04-27 15:01 | NUR ---
TOWARDS POC PT A/O X4, VSS, AFEBRILE. PAIN MANAGED BY MEDS. -SEE MAY. ON CONTINUOS PULSE OX NO ALARMS NOTED. REMAINED ON TRACH SHIELD ON 10L O2. CONT. TUBE FEEDING AT 55MLS GOAL ONGOING, NO RESIDUAL VOLUME NOTED. SUPRA PUBIC AND COLOSTOMY CARE GIVEN, CLEANED AND PATENT. ISOLATION REMAINED. PRN TRACH CAP FOR CONVERSATION. Q2 TURNS. PT REFUSED WOUND DRESSING THIS AM. WILL TRY AGAIN THIS PM. NO CONCERNS VOICED. WILL CONTINUE TO MONITOR.
--- NOTE | 2018-04-27 15:08 | NUR ---
CM SPOKE WITH PT'S CAREGIVER REBECCAET THIS AM AND SHE ASKED ABOUT DC PLANNING. CM INDICATED THAT CM HAD MEETING WITH CARE TEAM AT 11:00 AND THAT CM WOULD CONVEY THAT SHE WOULD PREFER THAT PT NOT GO FOR A POST ACUTE CARE STAY. DR. GONZALES CALLED AND SPOKEW WITH HER AND INDICATED WHY THEY WERE RECOMMENDING LTAC UPON DC. HE REITERATED THAT PT IS A&O X4 AND ABLE TO MAKE OWN CHOICE AT HIS TIME. PHYSICIAN SPOKE WITH PT. CM TO FOLLOW INDICATED WITH DC PLANNING.
[2018-04-27 20:00] VITALS: BP 195/50; BP 95/50
[2018-04-28 04:40] VITALS: BP 195/50; BP 98/56
--- NOTE | 2018-04-28 08:04 | NUR ---
progress pt a/o x4 reporting pain an 8 to back and sacrum taking oxycodone and morphine with slight effect. iv antibiotics continue, tf infusing at 55 cc hr and flushed with 150cc h20 as ordered turned q2hrs continue to monitor
[2018-04-28 08:14] VITALS: BP 112/62
[2018-04-28 08:54] LABS: ALBUMIN 1.3 g/dL (3.4-5.0); CALCIUM 8.7 mg/dL (8.5-10.1); CREATININE 0.6 mg/dL (0.7-1.3); PHOSPHORUS 3.4 mg/dL (2.5-4.9); POTASSIUM 4.3 mmol/L (3.5-5.1)
--- NOTE | 2018-04-28 12:35 | NUR ---
YESTERDAY EVENING PT'S FAMILY VISITED AND AGAIN INDICATED THAT THEY WOULD PREFER THAT PT NOT GO TO [facility] THEY FEEL PT'S DEVELOPED SORE FORM A STAY THERE. CM INDICATED THAT CARE TEAM WORKING WITH PT AND THEM O DETERMINE DC DESTINATION BUT THAT PT IS A&O AND ABLE TO MAKE OWN CHOICES AT THIS TIME. THEY INDICATED THAT THEY WOULD BE RECEPTIVE TO REFERRAL BEING SENT TO [facility] FOR POSSIBLE ADMISSION. CM TO [facility] INDICATED WITH DC PLANNING.
--- NOTE | 2018-04-28 16:08 | NUR ---
WOUND FOLLOW UP: PT. WAS SEEN TODAY BY DR. GUTIÉRREZ AND MYSELF. PT. DRESSING ARE C/D/I AT THIS TIME. PT. HAS NO COMPLAINTS AT THIS VISIT. RECOMMENDATIONS: CONTINUE WITH CURRENT PLAN OF CARE. PT. AND STAFF NURSE WERE INSTRUCTED ON PLAN OF CARE.
--- NOTE | 2018-04-28 16:14 | NUR ---
REFERRAL HAD BEEN SENT TO [facility] PER FAMILY REQUEST. [facility] INDICATED THAT THEY ARE ABLE TO ACCEPT PT ONCE MEDICALLY STABLE. CM ATTEMPTED TO SPEAK WITH PT BUT HE WAS SLEEPING. CM CALLED CAREGIVER TACHET AND NOTIFIED HER WELL. CM TO FOLLOW UP WITH PT AND CAREGIVER. CM MENTIONED POSSIBLE DISHCARGE WEDNESDAY. CM TO FOLLOW INDICATED WITH DC PLANNING.
[2018-04-28 18:03] VITALS: BP 124/80
[2018-04-28 20:13] VITALS: BP 113/62
--- NOTE | 2018-04-29 05:11 | NUR ---
Pt. has been up all night watching television. He c/o chronic back pain and is constantly asking staff for pain medications. Pain meds given as ordered (see emar) with some to little relief of pain. G-tube patent upon auscultation and tube feeding infusing without difficulty. Head of the bed elevated.
[2018-04-29 06:59] VITALS: BP 121/67
[2018-04-29 08:00] VITALS: BP 100/55
[2018-04-29] MEDS ORDERED: ZOSYN 3.373.375 GM/1 IV (09:49)
[2018-04-29] MEDS ORDERED: VANCOMYCIN1 GM/1001 IV (09:50)
[2018-04-29] MEDS ORDERED: OXYCODONE HCL15 MG PO (09:50)
--- NOTE | 2018-04-29 14:28 | NUR ---
PHYSICIAN INDICATED THAT PT IS MEDICALLY STABLE TO DISCHARGE TO [facility] TODAY. CM NOTIFIED PT AND HIS CAREGIVER TACHKRYSTEN AND BOTH ARE AWARE AND AGREEABLE. CM CALLED AND ARRANGED TRANSPORT FOR STRETCHER TRANSPORT THROUGH [facility] TRIP #[id number] FOR BETWEEN NOW AND 171. CHART COPY MADE AND ORDERS FAXED. REPRORT TO BE CALLED TO . NO OTHER CM INTERVENTION INDICATED AT THIS TIME. CASE CLOSED.
[2018-04-29 15:00] VITALS: BP 112/68
--- NOTE | 2018-04-29 17:15 | NUR ---
Pt stable, has chronic back pain, pain medication given routinely but to little relief. Head of bed is elevated, morning care done. Has a G-tube with Jevity 1.5 running at 55, no issues or complication noted. Maintained on isolation, tracheostomy care done, pt is able to suction himself as well. Colostomy bag in place and draining well. Suprapubic catheter intact and draining light yellow urine. Wound care done today. Right upper arm PIC line patenet and intact. Report given to nurse at [facility] pt is now dc
== END 2018-04-29 15:30 | DRG 871 ==
LOC: ER 15:31 → EROBS 17:24 → 4W 17:24
PROVIDERS: Emergency Medicine; Hospitalist; Internal Medicine Infectious Disease; Internal Medicine Pulmonary Disease; ADMIT Internal Medicine
PROC: 30233N1 Transfusion of Nonautologous Red Blood Cells into Peripheral Vein, Percutaneous Approach (ICD-10-PCS; principal; 2018-04-21)
PROC: 02HV33Z Insertion of Infusion Device into Superior Vena Cava, Percutaneous Approach (ICD-10-PCS; 2018-04-24)
DX: A41.02 Sepsis due to Methicillin resistant Staphylococcus aureus (principal); L89.214 Pressure ulcer of right hip, stage 4; L89.94 Pressure ulcer of unspecified site, stage 4; G82.50 Quadriplegia, unspecified; E43 Unspecified severe protein-calorie malnutrition; J18.1 Lobar pneumonia, unspecified organism; J96.90 Respiratory failure, unspecified, unspecified whether with hypoxia or hypercapnia; E87.1 Hypo-osmolality and hyponatremia; M86.8X8 Other osteomyelitis, other site; J90 Pleural effusion, not elsewhere classified; Z68.1 Body mass index [BMI] 19.9 or less, adult; B19.20 Unspecified viral hepatitis C without hepatic coma; R13.10 Dysphagia, unspecified; M46.42 Discitis, unspecified, cervical region; D50.9 Iron deficiency anemia, unspecified; E03.9 Hypothyroidism, unspecified; E11.69 Type 2 diabetes mellitus with other specified complication; Z93.1 Gastrostomy status; Z93.3 Colostomy status; Z88.6 Allergy status to analgesic agent; Z88.8 Allergy status to other drugs, medicaments and biological substances; Z93.0 Tracheostomy status; Z79.899 Other long term (current) drug therapy
CPT/HCPCS: 10045; 27000

== ENCOUNTER 2018-06-08 15:46 | Inpatient (IN) | payer OTHER ==
[~2018-06-08] VITALS: Ht 172.7 cm; Wt 55.3 kg
[2018-06-08] VITALS (20 sets, daily range): BP systolic 94–128; BP diastolic 52–74
[2018-06-08 17:09] LABS: ABSOLUTE NEUTROPHILS 13.5 thou/uL (1.4-8.2); BASOPHILS 0.5 % (0.0-2.0); EOSINOPHILS 0.1 % (0.0-3.0); HEMOGLOBIN 8.5 gm/dL (14.0-18.0); LYMPHOCYTES 6.2 % (24.0-44.0); MCH 24.6 pg (26.0-34.0); MCHC 30.4 g/dL (28.0-37.0); MCV 80.8 fL (80.0-100.0); MONOCYTES 4.5 % (1.0-8.0); POLYS 88.7 % (36.0-66.0); RBC 3.47 mil/uL (4.50-6.00); RDW 19.7 % (10.5-14.5); WBC 15.3 thou/uL (4.0-11.0)
[2018-06-08 17:36] LABS: ANISOCYTOSIS 1+; LARGE PLATELETS SEVERAL; PLATELET COUNT 805 thou/uL (150-400); POLYCHROMASIA OCCASIONAL
[2018-06-08 17:44] LABS: ALBUMIN 1.9 g/dL (3.4-5.0); CALCIUM 9.1 mg/dL (8.5-10.1); CREATININE 0.7 mg/dL (0.7-1.3); POTASSIUM 4.5 mmol/L (3.5-5.1); TOTAL BILIRUBIN 0.2 mg/dL (<0.1-1.0); TOTAL PROTEIN 8.3 g/dL (6.4-8.2)
[2018-06-08 18:37] LABS: URINE BILIRUBIN NEGATIVE (Negative); URINE BLOOD NEGATIVE (Negative); URINE CLARITY SL CLOUDY; URINE COLOR YELLOW; URINE GLUCOSE-RANDOM* NEGATIVE (Negative); URINE KETONES 1+ (Negative); URINE LEUKOCYTES 1+ (Negative); URINE NITRITE NEGATIVE (Negative); URINE PROTEIN (DIPSTICK) TRACE (Negative); URINE SPECIFIC GRAVITY >= 1.030 (1.005-1.035); URINE UROBILINOGEN 0.2 E.U./dl (0.2-1.0)
[2018-06-08 18:44] LABS: URINE WBC 6-15 Few /HPF (0-5); YEAST Present (None Seen)
[2018-06-08 18:45] LABS: BACTERIA 1-9 Few /HPF (None Seen); CASTS None Seen /LPF (None Seen); CRYSTALS None Seen /LPF (None Seen); SQUAMOUS 0-3 Few /LPF (0-3); URINE RBC None Seen /HPF (0-2)
--- NOTE | 2018-06-08 20:30 | NUR ---
Pt arrived ICU via cart, accompanied with ER staffs to room 246. He is being admit for Severe sepsis, stage 4 decub,malnutrition and anemia. AAOx4. No s/sx of any distress indicates. No family present at this time. Assessment completes. Hx obtained.He has multiple decubes on his scral, both buttock and upper back noted. Will obtain photograph tonight. C/O pain all over despite receiving multiple doses of morphine in ER. No pain med available at this time. Will call his PCP in a little bit. ST on monitor, SBP in 100's with MAP > 65 mmHg. He is afebrile. Will watch for s/sx of septic shock. Continue working toward goals.
--- NOTE | 2018-06-08 21:30 | NUR ---
Call consult to Dr. Garber , and Dr. Carrillo as order. They will see pt in am.
[2018-06-09] VITALS (43 sets, daily range): BP systolic 80–129; BP diastolic 40–82
[2018-06-09 04:58] LABS: ABSOLUTE NEUTROPHILS 9.6 thou/uL (1.4-8.2); BASOPHILS 0.4 % (0.0-2.0); EOSINOPHILS 0.2 % (0.0-3.0); HEMATOCRIT 23.1 % (42.0-52.0); HEMOGLOBIN 6.9 gm/dL (14.0-18.0); LYMPHOCYTES 7.5 % (24.0-44.0); MCH 24.5 pg (26.0-34.0); MCHC 29.8 g/dL (28.0-37.0); MCV 82.1 fL (80.0-100.0); MONOCYTES 4.8 % (1.0-8.0); POLYS 87.1 % (36.0-66.0); RBC 2.81 mil/uL (4.50-6.00); RDW 19.5 % (10.5-14.5)
--- NOTE | 2018-06-09 05:00 | NUR ---
His IV infiltrated, multiple attempted to obtain IV by several nurse w/o any success. No IV nurse available on night. who is ER physician is able to placed IV under ultrasound. No complication indicates. Notified [facility]; new order for PICC line obtained. Will continue to monitor any changes.
[2018-06-09 05:01] LABS: PLATELET COUNT 564 thou/uL (150-400)
[2018-06-09 05:19] LABS: ALBUMIN 1.7 g/dL (3.4-5.0); CALCIUM 8.7 mg/dL (8.5-10.1); CREATININE 0.7 mg/dL (0.7-1.3); MAGNESIUM 1.8 mg/dL (1.8-2.4); POTASSIUM 3.8 mmol/L (3.5-5.1); TOTAL BILIRUBIN 0.2 mg/dL (<0.1-1.0); TOTAL PROTEIN 7.3 g/dL (6.4-8.2)
--- NOTE | 2018-06-09 10:36 | NUR ---
Nutrition: Pt usually takes bolus regimen of Jevity 1.2 at home (4-6 cans/day). Little po intake per niece. To meet needs for wound healing suggest continous regimen of Pivot 1.5 formula to reach 45 mL/hr. Start at 20 mL/hr and advance cautiously. Pt high refeeding syndrome risk. Severe malnutrition with severe weight loss/wasting.
--- NOTE | 2018-06-09 11:18 | NUR ---
ORDERS RECEIVED FOR PT EVAL AND TREAT. PER CHART REVIEW AND CONVERSATION WITH RN, Pt HAS BEEN QUADRIPLEGIC FROM [facility] SINCE 2016. Pt LIVES IN HOME WITH RAMP TO ENTER AND IS CARED FOR BY FAMILY OR CAREGIVER 7 DAYS/WEEK. HAS ALL DME AT HOME. NURSING HAS BEEN REPOSITIONING/TURNING Pt. NO ACUTE PT NEEDS AT THIS TIME. PT TO SIGN OFF.
--- NOTE | 2018-06-09 12:09 | NUR ---
VASCULAR ACCESS CONSULTED FOR PICC PLACEMENT. DISCUSSED BENEFITS AND RISK WITH PT, VERBALIZED UNDERSTANDING. PT WAS PREPPED AND DRAPED FOR MAX BARRIER PRECAUTIONS. RA BASILIC WAS WIDELY PATENET WITH USG,1% LIDOCAINE GIVEN, UNABLE TO PASS GUIDEWIRE, PICC ABORTED. RA BRACHIAL TOO SMALL AND CLOSE TO ARTERY. PT UNABLE TO LAY FLAT FOR IJ. RN NOTIFED, ORDER PLACED FOR IR TO DO LINE. L ARM VERY EDEMATOUS DUE TO PREVIOUS INFILTRATE
--- NOTE | 2018-06-09 14:34 | NUR ---
CM ASSESSMENT: CASE OPENED FOR DC PLANNING. CLINICAL INFO REVIEWED. PT ADMITTED WITH INFECTED SACRAL WOUND. PT WAS HERE IN 04/2018 WITH PNA AND DC TO [facility]. SPOKE WITH PT'S NIECE/CAREGIVER ANATOLY BY PHONE. 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 SPOUSE WAS CAREGIVER BUT SHE IS . PT LIVES IN FAMILY HOME, RAMP AT ENTRANCE, HAS ALL NEEDED DME IN HOME. FAMILY ARE CAREGIVERS 28/09. PT HAS [facility] FOR HOME HEALTH RN FOR WOUND CARE 3 X WEEK, AND HBCS 5 HRS DAILY, 7 DAYS A WEEK. PT HAS TRACH AND USES SPEAKING VALVE. HX OF SACRAL WOUND AND ADMITTED FOR INFECTED WOUND WITH PLAN FOR NUTRITIONAL OPTIMIZATION AND SURGICAL CONSULT FOR POSSIBLE WOUND DEBRIDEMENT. ANATOLY INDICATES PT WAS AT [facility] 1 WEEK AND TRANSITIONED TO [facility] BUT FAMILY REMOVED HIM CITING CARE ISSUES. PT HAS BEEN TO [facility] IN PAST BUT REFUSES TO RETURN. PT AND ANATOLY WANT PT TO RETURN HOME WHEN MEDICALLY STABLE AND CITE THEY HAVE DONE HOME IV ABX IN PAST. AT [place].
--- NOTE | 2018-06-09 19:55 | NUR ---
PATIENT REMAINS A&O X 4, PLEASANT AND COOPERATIVE WITH CARES. NC/O PAIN AT ALL TIMES AND PAIN MEDICATIONS HELP SOME. DRESSINGS TO BUTTOCKS CHANGED BY RN. IV TEAM UNABLE TO PLACE PICC LINE, IR CONSULTED AND PATIENT DOWN TO GET IV ACCESS AT 1630. PATIENT TOLERATED PROCEDURE AND ACCESS WAS GAINED IN RA. MARGINAL URINE OUTPUT THIS SHIFT. PATIENT KABLE TO SUCTION OWN MOUTH. PATIENT TURNED Q2H FOR COMFORT AND PRESSURE RELIEF. NO FURTHER CONCERNS AT THIS TIME. WILL CONTINUE TO MONITOR AND CARE PER PLAN OF CARE.
[2018-06-10] VITALS (74 sets, daily range): BP systolic 72–138; BP diastolic 40–83
--- NOTE | 2018-06-10 05:03 | NUR ---
PT RESTING COMFORTABLE IN BED. REQUIRED MULTIPLE DOSES OF PAIN MEDICATION BUT BP SOFT SO HAD TO SPACE THEM OUT. PT RECEIVED 250ML BOLUS OF NS FOR PRESSURE SUPPORT. PT REMAINS ON TRACH SHIELD 35% FIO2 SATS 100% PT CONTINUES ON MAINTENANCE IVF. TUBE FEEDS STARTED DURING SHIFT. TOLERATING SO FAR TO INCREASE SLOWING TO REACH GOAL OF 45ML/HR. SR ON MONITOR. AM LABS TO BE DRAWN AND REVIEWED.
[2018-06-10 06:46] LABS: ALBUMIN 1.4 g/dL (3.4-5.0); CALCIUM 8.3 mg/dL (8.5-10.1); CREATININE 0.5 mg/dL (0.7-1.3); POTASSIUM 3.4 mmol/L (3.5-5.1); TOTAL BILIRUBIN 0.2 mg/dL (<0.1-1.0)
[2018-06-10 07:24] LABS: MCV 84.2 fL (80.0-100.0); WBC 7.1 thou/uL (4.0-11.0)
[2018-06-10 07:25] LABS: HEMATOCRIT 20.7 % (42.0-52.0); MCH 24.9 pg (26.0-34.0); MCHC 29.5 g/dL (28.0-37.0); RBC 2.46 mil/uL (4.50-6.00); RDW 19.6 % (10.5-14.5)
[2018-06-10 07:29] LABS: HEMOGLOBIN 6.1 gm/dL (14.0-18.0)
--- NOTE | 2018-06-10 08:20 | NUR ---
WOUND CONSULT: PT. WOUND CONSULT WAS EVALUATED ON 06/09/[address] GUTIÉRREZ AND MYSELF. PT. IS WELL KNOWN TO THE WOUND CARE TEAM. UPON ARRIVAL TO THE UNIT PT. WAS GONE TO IR FOR A PROCEDURE. PT. HAD BEEN ADMITTED FROM THE WOUND CLINIC. ASSESEMENT OF THE WOUNDS WAS MADE OFF OF PAST HISTORY WITH PT, VERBAL CONVERSTION WITH STAFF NURSE AND REVIEWING PHOTOS TAKEN FROM WOUND CLINIC. PT. 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 RECOMMENDATIONS: WOUND CARE TO ALL SITES: GENTLY CLEANSE AREA WITH WOUND CLEANSER OR NORMAL SALINE, PACK WITH DAKIN MOIST KERLIX, COVER WITH ABD, SECURE WITH TAPE, COMPLETE CARES DAILY AND PRN. TURN Q2 HOURS KEEP PT. OFF WOUNDS MUCH POSSIBLE KEEP ON MAGDALENO MATRESS. STAFF NURSE WAS INSTRUCTED ON PLAN OF CARE.
--- NOTE | 2018-06-10 08:55 | HC ---
[facility] [place] [address] CONSULTATION Name: SETH POTTS Maliha Room #: 246-P ADM IN M.R.#: [id number] Admission: 06/08/18 ������������������ Attend Phys: Jitendra Rogers MD Discharge: ������������������ Date of : 55 Report #: [id number] THIS REPORT FOR: //name// CC: ULISSES physician/PCP Jitendra Rogers DATE OF SERVICE: 06/09/2018 TYPE OF REPORT: Infectious disease consultation. REASON FOR CONSULTATION: Antibiotic management, stage IV sacral and ischial decubitus. HISTORY OF PRESENT ILLNESS: A 62-year-old -[place] man known to me from multiple previous hospitalizations at [facility] and at [facility]. He is readmitted with foul odor coming from decubitus. Most of the information on the patient gathered from review of records. The patient has chronic tracheostomy, a Passy-Laila valve in place but not quite able to give any significant information. PAST MEDICAL HISTORY: 1. Quadriplegia. 2. Diabetes mellitus. 3. Permanent tracheostomy. 4. Percutaneous gastrostomy. 5. Diverting colostomy. 6. Suprapubic cystostomy. 7. Stage 4 sacral decubitus. 8. Stage 4 left ischial decubitus. 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 DRUG ALLERGIES: LISINOPRIL, ALPRAZOLAM, CODEINE and ROFECOXIB. MEDICATIONS: The patient is currently on sertraline, levothyroxine, fentanyl, gabapentin, Zosyn 3.375 grams IV every 8 hours, baclofen, oxycodone p.r.n., vancomycin 750 mg IV every 12 hours and local wound care. SOCIAL HISTORY: See H and P, old records. FAMILY HISTORY: See H and P, old records. REVIEW OF SYSTEMS: Unable to obtain. PHYSICAL EXAMINATION: GENERAL: Chronically ill-appearing, debilitated, quadriplegic man with chronic tracheostomy and Passy-Laila valve in place. [address] [address] CONSULTATION Name: SETH POTTS Room #: [address] [place] [address] [place] [facility].#: [id number] Admission: 06/08/18 ������������������ Attend Phys: Jitendra Rogers MD Discharge: ������������������ Date of : 55 Report #: [id number] VITAL SIGNS: Temperature 96.2, pulse 79, respirations 15 and BP 95/60. Height 5 feet 8 inches, weight either 120 pounds or maybe 92 or maybe 85, those 4 values to choose from. HEENMT: Pupils reactive. Mouth: No thrush. NECK: Tracheostomy in place with Passy-Muse valve. LUNGS: Clear. HEART: S1 and S2. No gallop. ABDOMEN: With gastrostomy, diverting colostomy and suprapubic cystostomy. BACK: Reveals a stage 4 sacral decubitus and stage 4 left ischial decubitus, unchanged compared to previously. NEUROLOGICAL: Quadriplegia. LABORATORY DATA: Sodium 140, potassium 3.8, BUN 15, creatinine 0.7 and glucose 110. Albumin 1.7 g/dL. Lactic acid 3.4 on admission, decreased to 0.8 after some fluids. WBC 15,300 on admission and decreases to 11,000; hemoglobin 6.9 g/dL and platelets 564,000. Sedimentation rate 140 mm per hour. Procalcitonin only mildly elevated at 0.95 and 0.70. Urinalysis revealed trace protein, pyuria and bacteriuria as well as with his chronic indwelling suprapubic cystostomy. In April 2018, his sputum revealed MRSA. Decubitus culture obtained yesterday at obviously pending so far. Urine culture pending as well. Previous urine culture revealed yeast. RADIOLOGY EVALUATION: A chest x-ray portable revealed endotracheal tube rotation. lobes, right side previously noted. Mild effusion, blunting right costophrenic angle with right lower lobe infiltrate essentially unchanged. ASSESSMENT: 1. Stage 4 sacral and ischial decubitus. 2. 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 3. Quadriplegia. 4. Percutaneous gastrostomy. Diverting colostomy and suprapubic cystostomy. 5. Severe anemia. 6. Severe malnutrition. SUGGESTIONS: Recommend continue treatment with Zosyn and vancomycin. We will adjust regimen pending culture results. Local wound care. Doubt very much antibiotics, the answer for this patient's chronic problems. Dr. Rogers, thank you for requesting my suggestions. ��������������������������������������������� <ELECTRONICALLY SIGNED> ���������������������������������������� By: Luke Paul MD ��������������������������������������������� 06/10/18 [id number] Luke Paul MD /nt
[2018-06-10 08:56] LABS: BE(vivo) -4.4 mmol/L (-2 to +3); HCO3 21.4 mmol/L (22.0-26.0); PCO2 42.5 mmHg (35.0-45.0); PO2 102.1 mmHg (80.0-100.0); sO2 97.2 % (92.0-98.0)
[2018-06-10 08:57] LABS: pH 7.319 (7.360-7.450)
--- NOTE | 2018-06-10 10:32 | NUR ---
PER SURGERY PROGRESS NOTE, TENTATIVE SURGICAL DEBRIDEMENT OF SACRAL WOUND EARLY NEXT WEEK. NO WEEKEND DC PLANNED.
--- NOTE | 2018-06-10 15:02 | NUR ---
VASCULAR ACCESS NURSE CONSULTED TO REPLACE A DOUBLE LUMEN WITH A TRIPLE LUMEN. PER STANDARDS THE OVER THE WIRE WAS ATTEMPTED AND UNSUCESSFUL AFTER MULTIPLE ATTEMPTS TO DROP LINE IN THE THE SVC. DISCUSSED THIS WITH THE PATIENTS NURSE AND THE PATIENT. THE PATIENT WAS REFUSING A CENTRAL LINE AND BILATERAL ARMS ARE CONTRACTED. AFTER EXPLAINING CENTRAL LINE PROCEDURE TO THE PATIENT HE DID AGREE TO ALLOW ME TO ATTEMPT A CENTRAL LINE. LINE WAS PLACED PER POLICY AFTER A BEDSIDE TIMEOUT WAS COMPLETED. THE LINE WAS TRIMMED TO 25CM AND ADVANCED TO 19CM WITHOUT DIFFICULTY. LINE WAS CONFIRMED WITH A STAT CHEST XRAY AND RELEASED FOR USE
[2018-06-10 15:23] LABS: CALCIUM 8.2 mg/dL (8.5-10.1); CREATININE 0.5 mg/dL (0.7-1.3); POTASSIUM 3.6 mmol/L (3.5-5.1)
--- NOTE | 2018-06-10 16:15 | NUR ---
WOUND FOLLOW UP: PT. WAS SEEN TODAY BY DR. GUTIÉRREZ AND MYSELF. WE WERE ABLE TO VISULIZE THE WOUNDS TODAY AND COMPLETE HIS WOUND CARE. PT. IS HAVING A GREAT DEAL OF PAIN IN ASSOCIATION WITH THE WOUNDS AND WOULD BENIFIT FROM SUGICAL INTERVENTION. RECOMMENDATIONS: CONTINUE WITH CURRENT PLAN OF CARE. PT. AND STAFF NURSE WERE INSTRUCTED ON PLAN OF CARE.
--- NOTE | 2018-06-10 19:34 | NUR ---
PT HYPOTENSIVE THIS AM WITH MAP >60. COMMUNICATED THIS AND CRITICAL LOW HGB TO DR. LUGO. ORDERS TO INITATE SEPSIS PROTOCOL. MODIFIED BY PHYSICIAN D/T PATIENT ALREADY BEING ON ABS, FLUIDS, CONSULTED PHYSICIANS. ATTEMPT TO REPLACE DOUBLE LUMEN PICC WITH TRIPLE LUMEN FOR CVP MONITORING. UNABLE TO COMPELTE BY IV NURSE. COMMINCATED THIS WITH TO DR. LUGO AND PATIENT NOW ONLY HAVING 1 PERIPHERIAL IV ACCESS AND NEED TO LINE PLACEMENT. CONSULT FOR IR TO PLACED. SPOKE AGAIN WITH IV NURSE WHO STATED IR WOULD NOT BE ABLE TO PLACE AT THIS TIME. RIGHT IJ TRIPLE LUMEN SUCESSFULLY PLACED BY IV NURSE. CVP MONITORING INITIATED. PT STARTED ON LEVO GTT THIS AM. 1 UNIT BLOOD GIVEN. HGB RE-CHECK 9.1. TUBE FEEDINGS RUNNING AT 45 ML/HR - GOAL RATE. PRN PAIN MEDICATION GIVEN PER MAY. WOUND DRESSINGS CHANGED BY WOUND NURSE AND PHYSICIAN.
[2018-06-11] VITALS (61 sets, daily range): BP systolic 58–139; BP diastolic 37–100
--- NOTE | 2018-06-11 01:27 | NUR ---
ANAM RAYMUNDO HERE ON UNIT. NOTIFIED OF PT HR, WE DISCUSSED ALL MEDS PT HAS/HAD BEEN GIVEN. SHE SAID JUST TO WATCH IT FOR NOW.
[2018-06-11 04:48] LABS: HEMATOCRIT 28.9 % (42.0-52.0); MCH 26.3 pg (26.0-34.0); MCHC 31.2 g/dL (28.0-37.0); MCV 84.2 fL (80.0-100.0); RBC 3.44 mil/uL (4.50-6.00); RDW 18.6 % (10.5-14.5); WBC 10.5 thou/uL (4.0-11.0)
[2018-06-11 04:59] LABS: CALCIUM 7.7 mg/dL (8.5-10.1); CREATININE 0.7 mg/dL (0.7-1.3); POTASSIUM 3.2 mmol/L (3.5-5.1)
--- NOTE | 2018-06-11 05:43 | NUR ---
PT RESTING IN BED. TOLERATING FREQUENT TURNS. PT SR/SB ON MONITOR. PT AFEBRILE BP SUPPORT WITH LEVOPHED GTT. CVP MONITORING. PT CONTINUES WITH MAINTENANCE IVF. AM LABS REVIEWED. PT AT GOAL WITH TUBE FEED PIVOT 1.5 AND TOLERATING THROUGH PEG TUBE. PT REQUIRED REPLACEMENT FOR POTASSIUM THIS AM.
--- NOTE | 2018-06-11 15:48 | NUR ---
VASCULAR ACCESS ROUNDING- CENTRAL LINE APPROPRIATE PATIENT CONTINUES ON SEPSIS PROTOCOL ON MULTIPLE IV MEDS AND CVP
--- NOTE | 2018-06-11 18:37 | NUR ---
ASSESSMENTS DOCUMENTED. ABLE TO TITRATE OFF LEVO THIS AFTERNOON- PRESSURES REMAIN WITH MAP >60. PRN PAIN MEDICATION GIVEN FOR GENERALIZED CHRONIC PAIN. STOOL SAMPLE SENT. REMAINS ON 35% TRACH SHIELD. WOUND DRESSING CHANGES COMPLETE. CVP MONITORING. TUBE FEEDINGS CONTINUE AT GOAL RATE. SPEECH EVAL. PATIENT ABLE TO HAVE MECHANICAL CHOPPED, THIN LIQUIDS. PLAN FOR DEBRIDEMENT BEGINNING OF WEEK.
[2018-06-12] VITALS (59 sets, daily range): BP systolic 96–134; BP diastolic 56–77
[2018-06-12 05:27] LABS: HEMOGLOBIN 7.8 gm/dL (14.0-18.0); RDW 18.8 % (10.5-14.5)
[2018-06-12 05:28] LABS: HEMATOCRIT 24.4 % (42.0-52.0); MCH 26.8 pg (26.0-34.0); MCHC 31.9 g/dL (28.0-37.0); RBC 2.91 mil/uL (4.50-6.00); WBC 9.8 thou/uL (4.0-11.0)
[2018-06-12 05:37] LABS: CALCIUM 7.5 mg/dL (8.5-10.1); CREATININE 0.6 mg/dL (0.7-1.3); POTASSIUM 3.2 mmol/L (3.5-5.1)
--- NOTE | 2018-06-12 06:00 | NUR ---
PT AWAKE AND ALERT. ORIENTED. TALKING WITH TRACH VALVE. REMAINS IN SINUS RHYTHM. 2000 CC UO THIS SHIFT. COCCYX WOUND DRESSING DRY AND INTACT. PAIN MED PRN. BATHED. REPOSITIONED Q 2 HRS. TUBE FEEDING STARTED AT 2200 [id number] Q 2 HRS. WILL CONT TO MONITIR.
--- NOTE | 2018-06-12 18:51 | NUR ---
ASSESSMENTS DOCUMENTED. VSS. REMAINS OFF LEVO. PO MEALS AND TUBE FEEDINGS RUNNING AT GOAL RATE. ELECTROLYTES BEING REPLACED. SCHEDULED K+ AND MG+ ORDERED BY DR. LUGO. NO SET DATE FOR SURGERY YET, BUT PLAN IN THE NEXT COUPLE DAYS. ACCUCHECK ACHS. INSULIN GIVEN PER MAY. PRN PAIN MEDICATION FOR GENERALIZED PAIN.
--- NOTE | 2018-06-12 22:24 | HC ---
[facility] [place] [address] CONSULTATION Name: SETH POTTS Room #: 246-P [facility] IN .R.#: [id number] Admission: 06/08/18 ������������������ Attend Phys: Jitendra Rogers MD Discharge: ������������������ Date of : 55 Report #: [id number] THIS REPORT FOR: //name// CC: ULISSES physician/PCP Jitendra Rogers DATE OF SERVICE: 06/09/2018 CHIEF COMPLAINT: Pelvic pressure ulcerations. HISTORY OF PRESENT ILLNESS: This is a 62-year-old male patient, with whom I am familiar, with a history of stage 4 pressure ulcerations to his sacrum and right ischial region, who was admitted to the hospital from the home setting after developing worsening of his pressure ulcerations. He has had multiple debridements in the past. He has long-standing pulmonary issues with history of MRSA pneumonia, has a tracheostomy. He has quadriplegia due to spinal cord injury after suffering from C3 through C5 diskitis with a streptococcal abscess. The patient notes some pain. PAST MEDICAL HISTORY: Positive for quadriplegia, diabetes, hypothyroidism, respiratory failure, hepatitis C, stage 4 pressure ulcerations, malnutrition, chronic anemia, epiglottic cancer, dysphagia. PAST SURGICAL HISTORY: Previous colostomy and suprapubic catheter. SOCIAL HISTORY: The patient is a previous smoker, currently no alcohol or tobacco use. FAMILY HISTORY: Noncontributory. REVIEW OF SYSTEMS: CONSTITUTIONAL: The patient denies fever, chills or weight loss. NEUROLOGICAL: The patient has quadriplegia. No changes. ENT: The patient denies earache, nasal drainage or sore throat. Has tracheostomy in. PULMONARY: The patient complains of mild cough and shortness of breath. GASTROINTESTINAL: The patient denies nausea, vomiting, diarrhea, abdominal pain. Has a colostomy and suprapubic catheter. ORTHOPEDIC: The patient is aware of the pressure ulcerations. He is unable to move on his own. PHYSICAL EXAMINATION: VITAL SIGNS: At this time include temperature 96.8, pulse 90, respirations of 13, blood pressure of 98/54. GENERAL: This is a chronically ill-appearing male patient who appears to be in minimal distress. [address] [address] CONSULTATION Name: SETH POTTS Room #: 246-P [facility] IN [facility].#: [id number] Admission: 06/08/18 ������������������ Attend Phys: Jitendra Rogers MD Discharge: ������������������ Date of : 55 Report #: [id number] HEENT: Head normocephalic. Nose and throat are clear. NECK: Demonstrates tracheostomy in place. LUNGS: Diminished. HEART: Regular. ABDOMEN: Soft. Colostomy, suprapubic catheter noted. PELVIC REGION: Demonstrates stage 4 pressure ulceration to the right ischium, sacrum as well as the new stage 3 pressure ulcer to the left ischium. There is moderate slough in the left ischial ulceration. A mixture of slough, granulation tissue and exposed bone on the sacrum and right ischium. LOWER EXTREMITIES: Demonstrate some evidence of muscle wasting. No obvious breakdown. NEUROLOGIC: The patient is quadriplegic. He has some contractures. LABORATORY DATA: Includes sodium 138, potassium 3.6, chloride is 21, BUN 8, creatinine 0.5, glucose 108, total protein 6.0, albumin is 1.4. CRP quite elevated at 235.4. White blood cell count 7.1 with a hemoglobin of 9.1. CLINICAL IMPRESSION: 1. Stage 4 pressure ulcer of the sacrum and right ischium. 2. Stage 3 pressure ulcer of the left ischium. 3. Wound infection. 4. Chronic osteomyelitis of the pelvis. 5. Severe protein calorie malnutrition. 6. Respiratory failure requiring tracheostomy. RECOMMENDATIONS: At this point in time, we will consult Surgery for consideration of surgical debridement and possible placement of skin substitute. He will be placed on low air loss mattress, q.2 hour turning and repositioning. PRAFO boots to both lower extremities. We will recommend quarter strength Dakin's moist gauze dressing changes for the time being. He may benefit from a wound VAC following debridement. He will need aggressive nutritional support to maximize wound healing and maintain glycemic control. I appreciate being asked to see him in consultation. ��������������������������������������������� <ELECTRONICALLY SIGNED> ���������������������������������������� By: Santana Gomez MD ��������������������������������������������� 06/12/18 2224 [id number] [id number] Santana Gomez MD /nt
[2018-06-13] VITALS (45 sets, daily range): BP systolic 107–174; BP diastolic 63–109
[2018-06-13 05:50] LABS: HEMATOCRIT 24.9 % (42.0-52.0); HEMOGLOBIN 7.7 gm/dL (14.0-18.0); MCV 84.1 fL (80.0-100.0); RBC 2.96 mil/uL (4.50-6.00); RDW 19.1 % (10.5-14.5); WBC 11.1 thou/uL (4.0-11.0)
--- NOTE | 2018-06-13 06:00 | NUR ---
VSS PT AWAKE AND ALERT. PAIN MEDS GIVNE PRN TONIGHT. BATHED BUTTOCK WOUND DRESSING CHANGED. DAKINS SOUTION WET TO DRY. 1200 CC UO THIS SHIFT. TRACH INTACT. WILKL CONT TO MONITOR.
[2018-06-13 06:03] LABS: CALCIUM 7.4 mg/dL (8.5-10.1); CREATININE 0.5 mg/dL (0.7-1.3); MAGNESIUM 1.4 mg/dL (1.8-2.4)
--- NOTE | 2018-06-13 10:20 | NUR ---
Nutrition: Pt eating ~50% of meals per nsg with feeding assist. Tube feeds to goal. K/Mg low, repleting. Per Carina RN/Dr Rogers will change Tube feeding order to nocturnal only to meet ~50% of needs, Pivot 1.5 at 50 mL/hr x 12 hrs. Can switch back to bolus regimen when pt transfer to floor.
--- NOTE | 2018-06-13 14:36 | NUR ---
WOUND FOLLOW UP: PT. WAS SEEN TODAY BY WOUND CARE TEAM. PT. DRESSING ARE C/D/I AT THIS TIME. PT. PLANS FOR DEBRIDEMENT TOMORROW IN THE OR. RECOMMENDATIONS: CONTINUE WITH CURRENT PLAN OF CARE. PT. AND STAFF NURSE WERE INSTRUCTED ON PLAN OF CARE.
--- NOTE | 2018-06-13 19:35 | NUR ---
PATIENT ALERT AND ORIENTED X4, PAIN MILDLY CONTROLLED WITH MEDICATION. SINUS RHYTHM ON SLIP COVER SEAMSTRESS. TRACHEOSTOMY PRESENT, 30% TRACH SHIELD. COLOSTOMY INTACT. DOMINGUEZ PATENT AND DRAINING. BLOOD SUGAR MONITORED. ELECTROLYTES MONITORED. NO SIGNS OF ACUTE DISTRES NOTED AT THIS TIME. WILL CONTINUE TO MONITOR.
[2018-06-14] VITALS (21 sets, daily range): BP systolic 90–129; BP diastolic 49–76
--- NOTE | 2018-06-14 04:51 | NUR ---
PT RESTING COMFORTABLE IN BED. SR ON MONITOR. AFEBRILE AND BP STABLE. PT REQUIRED MUTLIPLE DOSES OF PAIN MEDICATION. AM LABS TO BE DRAWN AND REVIEWED. PT CONTINUES WITH TUBE FEED DURING STEAM PLANT OPERATOR AND TOLERATING.
[2018-06-14 06:51] LABS: HEMATOCRIT 27.1 % (42.0-52.0); HEMOGLOBIN 8.4 gm/dL (14.0-18.0); MCH 26.2 pg (26.0-34.0); MCHC 30.9 g/dL (28.0-37.0); MCV 84.9 fL (80.0-100.0); RBC 3.19 mil/uL (4.50-6.00); RDW 19.5 % (10.5-14.5); WBC 13.1 thou/uL (4.0-11.0)
[2018-06-14 06:53] LABS: CALCIUM 7.6 mg/dL (8.5-10.1); CREATININE 0.5 mg/dL (0.7-1.3); POTASSIUM 3.8 mmol/L (3.5-5.1)
--- NOTE | 2018-06-14 15:51 | NUR ---
WOUND FOLLOW UP: PT. WAS SEEN TODAY BY DR. GUTIÉRREZ AND MYSELF. PT. DIDN'T WANT TO ALLOW WOUND CARE TO ASSESS HIS WOUNDS THIS VISIT. PT. STATED THAT THE NURSE HAD ALREADY CHANGED HIS DRESSINGS AND THAT HE WAS HURTING. THIS ECOLOGIST TECHNICIAN WAS ABLE TO GET THE PT. TO AGREE TO ALLOW WOUND CARE TO EVALUATE WOUNDS TOMORROW. PT. AGREE TO THIS. PT. WAS ALSO FRUSTRATED OVER THE WAIT TIME FOR SURGERY. THIS ECOLOGIST TECHNICIAN CALLED THE OR AND WAS ABLE TO CONFIRM THAT THE PT. IS SCHEDULED FOR SURGICAL DEBRIDEMENT OF HIS SACRAL/GLUTEAL WOUNDS ON Wednesday06/17/2018 AT 10:40AM. PT. WAS GLAD THAT HE HAS A SET DATE. RECOMMENDATIONS: CONTINUE WITH CURRENT PLAN OF CARE. PT. AND STAFF NURSE WERE INSTRUCTED ON PLAN OF CARE.
--- NOTE | 2018-06-14 20:04 | NUR ---
PATIENT ALERT AND ORIENTED X4, PAIN MILDLY CONTROLLED WITH MEDICATION. ON 30% TRACH SHIELD. OSTOMY AND PEG TUBE INTACT. PATIENT TOLERATING DIET. DOMINGUEZ PATENT AND DRAINING. BLOOD SUGAR MONITORED. NPO STATUS AFTER MIDNIGHT DISCUSSED WITH ONCOMING NURSE. NO SIGNS OF ACUTE DISTRESS NOTED AT THIS TIME. WILL CONTINUE TO MONITOR.
[2018-06-15] VITALS (16 sets, daily range): BP systolic 95–128; BP diastolic 56–74
--- NOTE | 2018-06-15 14:29 | NUR ---
WOUND FOLLOW UP: PT. WAS SEEN TODAY BY DR. GUTIÉRREZ AND MYSELF. PT. WOUND DRESSING WERE DONE AT THIS VISIT AND PHOTOS WERE TAKEN. PT. WOUNDS ARE STABLE AT THIS TIME AND WE ARE STILL AWITING SURGICAL INTERVENTION. RECOMMENDATIONS: CONTINUE WITH CURRENT PLAN OF CARE. PT. AND STAFF NURSE WERE INSTRUCTED ON PLAN OF CARE.
--- NOTE | 2018-06-15 18:29 | NUR ---
1200 DR LUGO PAGED, PT NOT GETTING ANY PAIN RELIEF FROM CURRENT PLAN. RATE 10/10 WITH GENERALIZED PAIN THROUGOUT BODY. BRITTNEY RETURNED PAGED, ORDERS TO GIVE AN ADDITIONAL FENT 50MCG IVP. EXPLAINED TO PT PLAN, PT AGREES. 1530 PT STILL RATES PAIN 10/10 WITH NO PAIN RELIEF, INCREASED HR 115'S, DR LUGO PAGELizzette WITH FINDINGS. BRITTNEY RETURNED PAGED, EXPLAINED PT IS STILL GETTING NO PAIN RELIEF, DISCUSSED MAYBE ITS ANXIETY RELATED, ATIVAN ORDERS ACKNOWLEDGED. 1700 PT COMFORTABLY RESTING, ASKED PT IF HE THINKS ATIVAN HELPED. HE REPLIED, "YUP, I THINK I'M OKAY."
[2018-06-16] VITALS (16 sets, daily range): BP systolic 84–146; BP diastolic 39–84
[2018-06-16 05:35] LABS: HEMATOCRIT 22.3 % (42.0-52.0); MCH 26.5 pg (26.0-34.0); MCHC 31.2 g/dL (28.0-37.0); MCV 84.8 fL (80.0-100.0); RBC 2.63 mil/uL (4.50-6.00); RDW 19.8 % (10.5-14.5); WBC 9.6 thou/uL (4.0-11.0)
[2018-06-16 05:44] LABS: CALCIUM 7.8 mg/dL (8.5-10.1); CREATININE 0.5 mg/dL (0.7-1.3); MAGNESIUM 1.5 mg/dL (1.8-2.4)
[2018-06-16 05:45] LABS: INR 1.1; PROTIME 11.4 Seconds (9.3-11.4)
--- NOTE | 2018-06-16 06:36 | NUR ---
ASSUMED PATIENT CARE AT 1900. PATIENT COMPLAINS OF UNRELIEVED PAIN. FENTANYL AND OXYCODONE GIVEN PRN ORDERED. PATIENT ALSO REFUSES TO BE TURNED FROM SIDE TO SIDE. PATIENT EDUCATED ON WOUND CARE AND POSITION CHANGES TO KEEP FROM ADDITIONAL SKIN BREAKDOWN. PATIENT VS REMAINED STABLE. PATIENT NPO AFTER MIDNIGHT FOR I&D TODAY. PATIENT PROGRESSING TOWARD GOAL.
--- NOTE | 2018-06-16 17:30 | NUR ---
PT TRANSFERRED FROM ICU THIS EVENING...PT LIVES AT HOME WITH SISTER AND HAD I/D OF SACRAL WOUNDS TODAY...TURN Q2H...ISOLATION MAINTAINED FOR MRSA...
--- NOTE | 2018-06-16 17:38 | NUR ---
PT TRANSFERRED TO 361 VIA BED, ALL BELONGINGS TRANSPORTED, PT SOFT TOUCH CALL LIGHT SENT, VITAL SIGNS STABLE, PT REMAINS ON 35% FIO2 TRACH SHEILD, PT SLEEPING, PAIN SEEMS CONTROL AT THIS TIME.
[2018-06-17 04:40] VITALS: BP 110/57
[2018-06-17 05:16] LABS: HEMATOCRIT 26.9 % (42.0-52.0); HEMOGLOBIN 8.5 gm/dL (14.0-18.0); MCH 26.6 pg (26.0-34.0); MCHC 31.5 g/dL (28.0-37.0); MCV 84.4 fL (80.0-100.0); RBC 3.18 mil/uL (4.50-6.00); WBC 11.7 thou/uL (4.0-11.0)
--- NOTE | 2018-06-17 05:42 | NUR ---
PT MAKING SLOW PROGRESS TOWARDS GOALS. SUCTIONING SELF ORALLY ON OCCASION. ON TRACH SHIELD AT 35% THROUGHOUT THE NIGHT. LUNGS DIMINISHED THROUGHOUT.
[2018-06-17 05:54] LABS: ALBUMIN 1.4 g/dL (3.4-5.0); CALCIUM 8.1 mg/dL (8.5-10.1); CREATININE 0.6 mg/dL (0.7-1.3); MAGNESIUM 1.6 mg/dL (1.8-2.4); POTASSIUM 4.1 mmol/L (3.5-5.1); TOTAL BILIRUBIN 0.2 mg/dL (<0.1-1.0); TOTAL PROTEIN 5.8 g/dL (6.4-8.2)
[2018-06-17 07:45] VITALS: BP 93/67
--- NOTE | 2018-06-17 09:15 | O ---
[facility] [place] [address] OPERATIVE REPORT Name: SETH POTTS Maliha Room #: 361-P [facility] IN ..#: [id number] Admission: 06/08/18 ������������������ Attend Phys: Jitendra Rogers MD Discharge: ������������������ Date of : 55 Report #: [id number] THIS REPORT FOR: //name// CC: ULISSES physician/PCP Jitendra Rogers DATE OF SERVICE: 06/16/2018 PREOPERATIVE DIAGNOSES: 1. Stage 4 sacral and bilateral ischial decubitus wounds. 2. Severe protein calorie malnutrition. 3. Recently resolved sepsis. 4. Chronic anemia. 5. Ventilator dependency through tracheostomy. 6. Chronic urinary tract infections. 7. Quadriplegia. 8. Chronic hepatitis C. POSTOPERATIVE DIAGNOSES: 1. Stage 4 sacral and bilateral ischial decubitus wounds. 2. Severe protein calorie malnutrition. 3. Recently resolved sepsis. 4. Chronic anemia. 5. Ventilator dependency through tracheostomy. 6. Chronic urinary tract infections. 7. Quadriplegia. 8. Chronic hepatitis C. PROCEDURES PERFORMED: 1. Excisional debridement of skin, subcutaneous tissue, muscle and bone of a stage 4 sacral decubitus wound ultimately measuring 12 x 10 cm in dimension (120 square cm). Preoperative wound measurements were similar as the overall dimensions did not change substantially. 2. Excisional debridement of skin, subcutaneous tissue, muscle and bone of a stage 4 right ischial decubitus wound ultimately measuring 7 x 4 cm in dimension (28 square cm). Preoperative wound measurements were similar as the overall dimensions of the wound did not change substantially. 3. Excisional debridement of skin, subcutaneous tissue, and muscle of a stage 4 left ischial decubitus wound ultimately measuring 2.5 x 2 cm in dimension (5 square cm). Preoperative wound measurements did not change substantially as the overall dimensions of the wound did not change. 4. Application of extracellular matrix tissue to the entire surface area of all decubitus wounds, totaling 153 square cm. SURGEON: Shanell Sparks M.D. [address] [address] OPERATIVE REPORT Name: SETH POTTS Room #: 361-[facility] IN [facility].#: [id number] Admission: 06/08/18 ������������������ Attend Phys: Jitendra Rogers MD Discharge: ������������������ Date of : 55 Report #: [id number] COGNOS TM1 DEVELOPER: Medical student. ANESTHESIA: General endotracheal anesthesia. ESTIMATED BLOOD LOSS: Minimal (less than 10 mL). COMPLICATIONS: None appreciated. SPECIMENS: Excised bone from the right ischium to microbiology. INDICATIONS: The patient is a 62-year-old -Green[place] male with chronic hepatitis C and severe protein-calorie malnutrition, who has C3 quadriplegia and longstanding sacral ischial decubitus wounds. The patient had recent sepsis and as he has now resolved that with no longer necessitating pressor support, indication was for formal debridement of his wounds. DESCRIPTION OF PROCEDURE: After explaining the risks, benefits and alternatives of the procedure and obtaining consent, the patient was brought to the operating room, supine on his hospital bed. After conducting a thorough timeout procedure verifying correct patient and procedure, the patient was given general endotracheal anesthesia via his indwelling tracheostomy appliance. Once adequate anesthesia was attained, his SCDs were hooked up to pneumatic compression device and he was already on an inpatient regimen of IV antibiotic therapy, which is all in line with the SCIP protocol. The patient was now positioned on the operating room table in the prone position with all pressure points appropriately padded and his sacral ischial region was prepped and draped in a standard surgical sterile fashion. Rongeurs were used to debride back soft spongy outer cortex of bone from the right ischium. There was fibrinous debris throughout the bed of each wound as well as a significant biofilm and as such, the Per Vices ultrasonic debridement tool was used to completely remove all nonviable tissue as well as all biofilm from the entirety of each wound. Manual pressure was held to control bleeding as well as using a little electrocautery at places. Once hemostasis was assured, the wound bed itself appeared beefy red and healthy. I now utilized three separate 1.5 mL vials of Interfill to cover the entirety of both the sacral and right ischial decubitus wounds. I then selected a piece of PriMatrix Ag that was meshed and measured 8 x 8 cm in dimension. This was fashioned to the sacral wound and stapled around the periphery. Several sutures were placed throughout the innermost portion to hold it in close approximation with the wound bed. These sutures were 3-0 Vicryl. Adaptic was then placed over the wound and was stapled in place. We then turned our attention to the right ischial wound and in similar fashion, utilized a piece of 6 x 6 cm meshed PriMatrix Ag to cover this wound. This piece was trimmed away and the remainder was used overlying the left ischial decubitus wound that was much smaller in dimension. All grafts were stapled down and covered with Adaptic in standard fashion. The wounds were then dressed with Kerlix, fluffs, 4 x 4s, ABDs and Medipore tape in standard fashion. At the end [address] [address] OPERATIVE REPORT Name: SETH POTTS Room #: 361-P [facility] IN .R.#: [id number] Admission: 06/08/18 ������������������ Attend Phys: Jitendra Rogers MD Discharge: ������������������ Date of : 55 Report #: [id number] of the procedure, all instrument, needle and sponge counts were correct. The patient tolerated the procedure without incident, was awakened in the operating room and transitioned to the recovery room in stable condition with no apparent complications. ��������������������������������������������� <ELECTRONICALLY SIGNED> ���������������������������������������� By: Shanell Sparks MD, FACS ��������������������������������������������� 06/17/18 0915 1420 1858 Shanell Sparks MD, FACS /nt
--- NOTE | 2018-06-17 14:38 | NUR ---
SW reviewed chart due to length of stay. Pt was transferred to from ICU yesterday. Pt is POD#1 wound debridement. Pt remains on IV abx: vancomycin. Discussed possible LTAC placement with attending physician. PATTIE spoke with pt's niece/caregiver, Tachet via phone to discuss discharge plan. Pt's niece states that family does not want pt to go to an LTAC and are adamant about bringing pt home and resuming services. Discharge home is anticipated for next week. PATTIE faxed clinical info to [facility] and spoke with intake and notified of anticipated discharge timeframe. PATTIE is following to assist as needed with discharge planning.
[2018-06-17 16:06] VITALS: BP 117/71
--- NOTE | 2018-06-17 17:11 | NUR ---
WOUND FOLLOW UP: PT. WAS SEEN TODAY BY DR. GUTIÉRREZ AND MYSELF. PT. WOUNDS ARE STABLE POST SURGERY AND WOUND CARE ORDERS WERE UPDATED TO REFLECT CHANGES. RECOMMENDATIONS: CONTINUE WITH CURRENT PLAN OF CARE. PT. AND STAFF NURSE WERE INSTRUCTED ON PLAN OF CARE.
--- NOTE | 2018-06-17 18:24 | NUR ---
VASCULAR ACCESS ROUNDING. CENTRAL LINE REMAINS APPROPRIATE, CONTINUES ON VANCO AND PIPERACILLIN. PT HAS LIMITED VASCULAR ACCESS,PT IS CONTRACTED.
--- NOTE | 2018-06-17 19:48 | NUR ---
PATIENT ASSESSMENTS AND VITAL SIGNS DOCUMENTED. HE HAS BEEN ALERT AND ORIENTED. WOUND CARE TEAM ROUNDED TONIGHT. DRESSINGS CHANGED AT SHIFT CHANGE, HOWEVER FIRST COLOSTOMY APPLIANCE WAS CHANGED. PATIENT ATE AT ALL MEALS, APPROXIMATELY ALL THE ENSURES, SIPS OF TEA, AND ONLY A FEW BITES OF THE MAIN MEAL. NO MORE THAN 25% OF THE MEALS WERE EATEN. HE WAS TURNED. REPORT GIVEN TO THE MALE IMPERSONATOR RN FOR CONTINUATION OF CARE.
[2018-06-17 20:07] VITALS: BP 98/61
--- NOTE | 2018-06-17 20:40 | NUR ---
NOTED RESULTS OF ULTRASOUND TO SATHYA. SPOKE WITH BUILDING TRADES INSTRUCTOR [facility]. NOTED LAB RESULTS THIS MORNING PLATLETS 414 AND HGB 8.5. ORDER RECEIVED FOR ONE TIME DOSE OF 1MG/KG LOVENOX.
[2018-06-18 03:46] VITALS: BP 95/58
--- NOTE | 2018-06-18 05:33 | NUR ---
PT MAKING SLOW PROGRESS TOWARDS GOALS. PT FREQUENTLY RATING BACK PAIN 8-9/10. ONLY REPORTS MINOR DECREASE IN PAIN WITH IV OR ORAL PAIN MEDICATIONS. SEE CHARTING.
[2018-06-18 08:00] VITALS: BP 104/68
[2018-06-18 11:46] VITALS: BP 121/76
--- NOTE | 2018-06-18 14:30 | NUR ---
PEG SITE CRUSTY WITH PURULENT DRAINAGE. REPORTED TO DR GONZALES THIS MORNING. ORDERS WERE TO CLEAN THEN DRY.
[2018-06-18 15:37] VITALS: BP 96/63
--- NOTE | 2018-06-18 16:49 | NUR ---
PT CARE ASSUMED APPROX 0700. PT ALERT AND ORIENTED X4 WITH FORGETFULNESS. T-TUBE IN PLACE, TRACH INTACT. DENIES SOA. REPORTS PAIN IN BACK 10/10 ALWAYS. MANAGING PAIN WITH FENT AND OXY IR. VSS. LOVENOX ADDED TO POC FOR RUE DVTs. ABT REMAINS TO POC. VANCO STOPPED. TURNING PT Q2HRS WHEN HE ALLOWS. PT INTERMITTENTLY REFUSES TURNS. HE'S BEEN EDUCATED ON THIS. MAG LEVEL LOW PER 06/17 BLOOD WORK. MAG SUPP ALREADY SCHEDULED BID. DR GONZALES AWARE. ISOLATION MAINTAINED. PT DENIES QUESTIONS OR CONCERNS REGARDING POC. NO DISTRESS NOTED.
[2018-06-18 21:00] VITALS: BP 98/59
[2018-06-19 03:45] VITALS: BP 116/68
[2018-06-19 04:47] LABS: HEMATOCRIT 25.2 % (42.0-52.0); HEMOGLOBIN 7.9 gm/dL (14.0-18.0); MCH 26.8 pg (26.0-34.0); MCHC 31.3 g/dL (28.0-37.0); MCV 85.6 fL (80.0-100.0); RBC 2.94 mil/uL (4.50-6.00); RDW 20.3 % (10.5-14.5)
[2018-06-19 05:12] LABS: ALBUMIN 1.4 g/dL (3.4-5.0); CALCIUM 7.9 mg/dL (8.5-10.1); CREATININE 0.6 mg/dL (0.7-1.3); MAGNESIUM 1.6 mg/dL (1.8-2.4); POTASSIUM 4.3 mmol/L (3.5-5.1); TOTAL BILIRUBIN 0.1 mg/dL (<0.1-1.0); TOTAL PROTEIN 6.1 g/dL (6.4-8.2)
[2018-06-19 05:20] VITALS: BP 116/68
--- NOTE | 2018-06-19 06:03 | NUR ---
PT MAKING SLOW PROGRESS TOWARDS GOALS. HAS DENIED ANY SOA OVERNIGHT. FIO2 PER TRACH SHIELD AT 35% WITH SMALL AMOUNT OF WHITE SPUTUM. PT FREQUENTLY RATES PAIN BACK AND IN GENERAL BETWEEN 7-9. PAIN MEDICATIONS PER ORDERS. ORAL TEMP 101.8 THIS AM. TYLENOL ORDERED AND GIVEN.
[2018-06-19 07:47] VITALS: BP 96/57
[2018-06-19 11:40] VITALS: BP 89/56
--- NOTE | 2018-06-19 11:51 | NUR ---
care of pt assumed this am @ ~0700. pt noted to be resting quietly and comfortably in bed this am as he was medicated w/ pain medication by noc rn this am. pt noted to receive overnight tube feedings (which were still infusing this am) to peg tube w/o concerns or issues. pt noted to have a speaking valve in place and is able to consume a regular diet w/ help from staff. colostomy bag in place w/ minimal drainage/stool at this time. suprapubic catheter in place, draining urine w/o concerns at this time. sacral drsg in place at this time, as pt had i&d, on 06/16/18, but noc rn requesting clarification of drsg change orders relative to post op i&d. pt co pain to back, sacral area and legs, -11/15, pt recieving iv pain medication every 4 hours.
--- NOTE | 2018-06-19 13:45 | NUR ---
dr. oquendo at this afternoon to look at and changed drsgs to wounds to buttocks post i&d on 06/16/18. drsgs w/ foul smell, some melinda noted to be non adherent to skin. new drsg is ns wet to dry (kerlix w/ abd) over existing interfyl & primatrix ecm w/ melinda.
[2018-06-19 15:33] VITALS: BP 86/49
[2018-06-19 19:23] VITALS: BP 96/59
--- NOTE | 2018-06-20 03:18 | NUR ---
Patient making slow progress towards outcome goals. Oxygenation optimal with current O2. Toleating tube feeding. Vital signs and rhythm stable. Some pain relief with Fentanyl and Ocycodone. Able to use call light appropriately for needs. High fall risk. Fall precautions in place. Turnes to sides.
[2018-06-20 03:41] VITALS: BP 113/69
[2018-06-20 07:36] VITALS: BP 89/54
[2018-06-20] MEDS ORDERED: OXYCODONE HCL15 MG PO (09:09)
[2018-06-20] MEDS ORDERED: ZOSYN 3.373.375 GM/1 IV (09:09)
[2018-06-20] MEDS ORDERED: ELIQUIS5 MG PER TUBE (09:10)
[2018-06-20 11:42] VITALS: BP 87/54
[2018-06-20 13:54] VITALS: BP 87/54
--- NOTE | 2018-06-20 15:38 | NUR ---
marketing planner sent dc home health summary and orders to [facility] Pimentel will call to make sure they know patient will dc today and that they received.
--- NOTE | 2018-06-20 15:51 | NUR ---
DISCHARGE NOTE: SW reviewed chart and spoke with nursing and attending physician. Pt is medically stable for discharge home today with HH services. SW spoke with pt's niece/caregiver, Tachet, via phone to provide update and notify of discharge. Tachet is agreeable with discharge plan. SW confirmed pt's home address. Arranged ambulance transportation through [facility] using [employer]. Trip # [id number] provided. cyber ops planner faxed discharge orders/summary to [facility] . Contact info for [facility] placed in pt's discharge summary. No additional SW needs identified at this time, but is available to assist should needs arise.
--- NOTE | 2018-06-20 16:51 | NUR ---
WOUND FOLLOW UP: PT. WAS SEEN TODAY BY DR. GUTIÉRREZ AND MYSELF. PT. WOUND IS CLINICALLY BETTER TODAY. PT. IS IN GOOD SPIRITS. RECOMMENDATIONS: CONTINUE WITH CURRENT PLAN OF CARE. PT. AND STAFF NURSE WERE INSTRUCTED ON PLAN OF CARE.
--- NOTE | 2018-06-20 18:57 | NUR ---
PATIENT WILL BE DISCHARGED HOME THIS PM. HE KEEPS ON ASKING PAIN MEDS SOMETIMES TOO EARLY. MEDS GIVENA ORDERED. WOUND DRESSING CHANGED TWICE. HE IS NOW SLEEPING. PEG TUBE IN PLACE AND FLUSHES WELL.
--- NOTE | 2018-06-21 14:16 | NUR ---
kathryn sent h&P and facesheet to [facility] (per PATTIE Espitia)
[2018-06-21] MEDS ORDERED: CEFEPIME 1 GM VI1 G2 INJECTION (14:31)
--- NOTE | 2018-06-21 16:38 | NUR ---
PATTIE notified by pt's nurse, that pt's family called regarding IV abx. Pt was discharged home with PICC line in place and script for Zosyn. PATTIE reviewed chart. Pt with orders to continue IV zosyn at time of discharge. ID physician progress note states to discontinue the IV zosyn and start IV cefepime. Pt had one dose of IV cefepime prior to discharge. Pt's family also states that pt had an order for home O2. Pt was not on O2 prior to admission. PATTIE spoke with pt's niece/caregiver, Lita, via phone to discuss pt's needs. Per Tachet, they were given script for IV zosyn and unable to fill at their pharmacy. Pt has used [facility] in the past. PATTIE explained process for arranging home IV abx. Pt's niece states she is open to any infusion company. PATTIE notified [facility] liaison. Info and order faxed to [facility]. [facility] is able to provide home IV abx this evening. [facility] liaison spoke with pt's niece, who states they want pt to be on zosyn, due to the script being written for zosyn. PATTIE discussed with attending physician's ORTHOPEDIC DESIGNER, who states that attending physician will contact pt's family to explain that pt is resistant to zosyn and cefepime is the recommended abx. PATTIE updated [facility] liaison, who states IV abx will be delivered to pt's home. Pt's family to assist with administration. Pt's niece had indicated that her preference for home O2 company would be [facility]. PATTIE sent info to [facility] [place] and spoke with [facility] liaison. Nona contacted [facility] to assist with doing home study to qualify pt for continuous home O2. Per pt's niece, who also works for [facility], they are unable to provide documentation needed for test. Pt's niece states that pt never qualifies for home O2 and their PCP may not sign the order. Pt was on 14L O2 FI02 of 35% per trach shield while in the hospital. Nona lianick explained need for test. Pt's niece agreeable with overnight oximetry. PATTIE obtained script for oximetry and faxed to [facility]. PATTIE will assist with obtaining prior authorization from [place]-Medicaid once testing is completed. SW discussed case with Director of Case Mgmt. SW is available to assist should additional needs arise.
== END 2018-06-20 21:50 | disposition home health service (06) | DRG 853 ==
LOC: ER 15:46 → ICU 18:13 → EROBS 18:13 → ICU 20:04 → 3W 06-16 17:12
PROVIDERS: Hospitalist; Nurse Practitioner Acute Care; Nurse Practitioner Family; Physician Assistant; Surgery; ADMIT Internal Medicine
DX: A41.9 Sepsis, unspecified organism (principal); L89.154 Pressure ulcer of sacral region, stage 4; L89.214 Pressure ulcer of right hip, stage 4; L89.224 Pressure ulcer of left hip, stage 4; E43 Unspecified severe protein-calorie malnutrition; J96.21 Acute and chronic respiratory failure with hypoxia; J18.9 Pneumonia, unspecified organism; G82.54 Quadriplegia, C5-C7 incomplete; M86.8X8 Other osteomyelitis, other site; N39.0 Urinary tract infection, site not specified; I82.B11 Acute embolism and thrombosis of right subclavian vein; Z68.1 Body mass index [BMI] 19.9 or less, adult; R65.20 Severe sepsis without septic shock; D64.9 Anemia, unspecified; Z88.6 Allergy status to analgesic agent; Z88.8 Allergy status to other drugs, medicaments and biological substances; E11.9 Type 2 diabetes mellitus without complications; E03.9 Hypothyroidism, unspecified; B18.2 Chronic viral hepatitis C; N31.9 Neuromuscular dysfunction of bladder, unspecified; Z87.891 Personal history of nicotine dependence; Z93.0 Tracheostomy status; Z93.3 Colostomy status; Z93.1 Gastrostomy status; Z93.50 Unspecified cystostomy status; Z22.322 Carrier or suspected carrier of Methicillin resistant Staphylococcus aureus
CPT/HCPCS: 10078; 10203; 10879; 50010; 50011; 50101; 50386; 50403; 51412; 56524; 57119; 57120; 57138; 57143; 57192; 62110; 62900; 70005

== ENCOUNTER → 2018-06-08 | Outpatient (CLI) | payer OTHER ==
[~2018-06-08] MED LIST changes: +OXYCODONE HCL15 MG PO; +VANCOMYCIN1 GM/1001 IV; +ZOSYN 3.373.375 GM/1 IV
== END ==
LOC: HYPER 06:51
DX: E11.622 Type 2 diabetes mellitus with other skin ulcer (principal); L89.154 Pressure ulcer of sacral region, stage 4; L89.220 Pressure ulcer of left hip, unstageable; L89.214 Pressure ulcer of right hip, stage 4; L98.496 Non-pressure chronic ulcer of skin of other sites with bone involvement without evidence of necrosis; B18.2 Chronic viral hepatitis C; E11.69 Type 2 diabetes mellitus with other specified complication; M86.9 Osteomyelitis, unspecified; E78.5 Hyperlipidemia, unspecified; G82.50 Quadriplegia, unspecified; I10 Essential (primary) hypertension; L85.3 Xerosis cutis; M46.40 Discitis, unspecified, site unspecified; F06.31 Mood disorder due to known physiological condition with depressive features; F32.9 Major depressive disorder, single episode, unspecified; Z93.0 Tracheostomy status; Z95.828 Presence of other vascular implants and grafts; Z87.891 Personal history of nicotine dependence; Z79.01 Long term (current) use of anticoagulants

== ENCOUNTER → 2018-06-28 | Outpatient (CLI) | payer OTHER ==
[~2018-06-28] MED LIST changes: +CEFEPIME 1 GM VI1 G2 INJECTION; +ELIQUIS5 MG PER TUBE
== END ==
LOC: HYPER 06:59
DX: E11.622 Type 2 diabetes mellitus with other skin ulcer (principal); L89.154 Pressure ulcer of sacral region, stage 4; L89.224 Pressure ulcer of left hip, stage 4; L89.214 Pressure ulcer of right hip, stage 4; L98.492 Non-pressure chronic ulcer of skin of other sites with fat layer exposed; L85.3 Xerosis cutis; B18.2 Chronic viral hepatitis C; E11.69 Type 2 diabetes mellitus with other specified complication; M86.9 Osteomyelitis, unspecified; E78.5 Hyperlipidemia, unspecified; G82.50 Quadriplegia, unspecified; M79.2 Neuralgia and neuritis, unspecified; M46.40 Discitis, unspecified, site unspecified; F06.31 Mood disorder due to known physiological condition with depressive features; F32.9 Major depressive disorder, single episode, unspecified; Z87.891 Personal history of nicotine dependence; Z79.01 Long term (current) use of anticoagulants; Z85.828 Personal history of other malignant neoplasm of skin; Z93.0 Tracheostomy status

== ENCOUNTER 2018-07-08 11:59 | Inpatient (IN) | payer OTHER ==
[~2018-07-08] VITALS: Ht 172.7 cm; Wt 41.0 kg
--- NOTE | ~2018-07-08 | HC ---
[facility] [place] [address] CONSULTATION Name: SETH POTTS Maliha Room #: 361-P [facility] IN ..#: [id number] Admission: 07/08/18 ������������������ Attend Phys: Jovany Nuñez MD Discharge: ������������������ Date of : 55 Report #: [id number] THIS REPORT FOR: //name// CC: FAM unknown Jovany Nuñez DATE OF SERVICE: 07/08/2018 CHIEF COMPLAINT: Sacral and ischial pressure ulcerations. HISTORY OF PRESENT ILLNESS: This is a 62-year-old male patient with whom I am familiar from multiple prior hospitalizations. I last saw him in 06/2018. He has a history of stage 4 pressure ulcers in the sacrum and ischial tuberosities. He is again admitted to the hospital from the home setting due to worsening of his pressure ulcerations. He has had multiple debridements in the past. It was noted that the pressure ulcers are foul smelling and with moderate drainage. PAST MEDICAL HISTORY: Positive for quadriplegia due to a spinal cord injury after suffering C3 through C5 diskitis with a streptococcal abscess. He has diabetes, hypothyroidism, respiratory failure, hepatitis C. Severe protein-calorie malnutrition, chronic anemia, history of epiglottic cancer and dysphagia. SOCIAL HISTORY: Positive for previous smoker. No alcohol or tobacco use. FAMILY HISTORY: Noncontributory. REVIEW OF SYSTEMS: CONSTITUTIONAL: The patient denies fever or chills. He does complain of generalized pain and muscle spasms. NEUROLOGICAL: The patient has quadriplegia with no changes. ENT: The patient denies earache, nasal drainage, sore throat. CARDIOVASCULAR: The patient denies chest pain or palpitation or diaphoresis. PULMONARY: The patient denies cough or shortness of breath. GASTROINTESTINAL: The patient denies nausea, vomiting, diarrhea or abdominal pain. ORTHOPEDIC: The patient is aware of the pressure ulcerations. He notes pain associated with them. PHYSICAL EXAMINATION: VITAL SIGNS: At this time include temperature 38.2, pulse 125, respiratory rate of 16, blood pressure 106/66. GENERAL: This is a chronically ill-appearing male patient who appears to be in moderate distress. HEENT: Head normocephalic. Nose and throat are clear. NECK: Supple. [address] [address] CONSULTATION Name: SETH POTTS Room #: 361-P [facility] IN [facility].#: [id number] Admission: 07/08/18 ������������������ Attend Phys: Jovany Nuñez MD Discharge: ������������������ Date of : 55 Report #: [id number] LUNGS: Clear. ABDOMEN: Soft. Bowel sounds present. Sacral region demonstrates stage 4 pressure ulceration of the sacral and ischial region bilaterally. There is foul-smelling drainage and some necrotic tissue present. LABORATORY DATA: Sodium 135, potassium 3.7, chloride 99, CO2 of 29, BUN 15, creatinine 0.6, glucose is 205. White blood cell count 8.2, with hemoglobin 9.1. CLINICAL IMPRESSION: 1. Stage 4 pressure ulceration of the sacrum and bilateral ischial tuberosities. 2. Quadriplegia secondary to a previous epidural abscess. 3. Respiratory failure, requiring tracheostomy. 4. Hepatitis C. 5. Diabetes mellitus with hyperglycemia. 6. Severe protein-calorie malnutrition with a prealbumin of 1.4. RECOMMENDATIONS: At this point in time, we will dress with quarter strength Dakin moist gauze and an ABD dressing daily. We will obtain culture and sensitivity. He will need low air loss mattress and q.2 hour turning and positioning, PRAFO boots to both lower extremities. He will need aggressive nutritional support. It is noted that his nutrition often improves while hospitalized and then diminished after residing in his home setting. We will recommend a surgical consultation and surgical debridement of these areas, possibly followed by a wound VAC. The patient is agreeable to current plan of care. I appreciate being asked to see him again in consultation. ��������������������������������������������� ���������������������������������������� By: ��������������������������������������������� 1948 1737 Santana Gomez MD /nt
[2018-07-08 12:01] VITALS: BP 106/66
[2018-07-08 12:37] LABS: URINE BILIRUBIN NEGATIVE (Negative); URINE BLOOD 2+ (Negative); URINE COLOR YELLOW; URINE GLUCOSE-RANDOM* NEGATIVE (Negative); URINE KETONES NEGATIVE (Negative); URINE NITRITE-REFLEX NEGATIVE (Negative); URINE PROTEIN (DIPSTICK) 1+ (Negative); URINE SPECIFIC GRAVITY 1.015 (1.005-1.035); URINE UROBILINOGEN 0.2 E.U./dl (0.2-1.0)
[2018-07-08 12:38] LABS: URINE CLARITY HAZY; URINE LEUKOCYTES-REFLEX 3+ (Negative)
[2018-07-08 12:53] LABS: CASTS None Seen /LPF (None Seen); SQUAMOUS 0-3 Few /LPF (0-3)
[2018-07-08 12:54] LABS: URINE RBC 0-2 Rare /HPF (0-2); URINE WBC-REFLEX 6-15 Few /HPF (0-5)
[2018-07-08 12:55] LABS: CALCIUM OXALATE 0-3 Few /LPF (None Seen); YEAST-REFLEX Present (None Seen)
[2018-07-08 13:22] LABS: HEMATOCRIT 28.2 % (42.0-52.0); HEMOGLOBIN 9.1 gm/dL (14.0-18.0); MCH 26.6 pg (26.0-34.0); MCHC 32.2 g/dL (28.0-37.0); MCV 82.8 fL (80.0-100.0); PLATELET COUNT 656 thou/uL (150-400); RDW 19.8 % (10.5-14.5); WBC 8.2 thou/uL (4.0-11.0)
[2018-07-08 13:30] LABS: ANION GAP 7 mmol/L (7-16); BUN 15 mg/dL (7-18); CALCIUM 9.4 mg/dL (8.5-10.1); CHLORIDE 99 mmol/L (98-107); CO2 29 mmol/L (21-32); CREATININE 0.6 mg/dL (0.7-1.3); GLUCOSE 205 mg/dL (74-106); POTASSIUM 3.7 mmol/L (3.5-5.1); SODIUM 135 mmol/L (136-145)
[2018-07-08 13:37] LABS: DIRECT BILIRUBIN < 0.1 mg/dL (<0.1-0.3); SGOT 98 U/L (15-37); SGPT 65 U/L (30-65); TOTAL BILIRUBIN < 0.1 mg/dL (<0.1-1.0); TOTAL PROTEIN 7.7 g/dL (6.4-8.2)
--- NOTE | 2018-07-08 13:40 | NUR ---
VASCULAR ACCESS CONSULTED FOR IV ACCESS ON THIS PT. HE IS A QUAD, CONTRACTED AND MALNOURISHED. UNABLE TO THREAD PIV CATHS BUT ABLE TO GET ALL LABS. PT IS REFUSING A JUGULAR LINE, WILL WAIT FOR LAB REVIEW TO DETERMINE IV NEEDS. RN AND AWARE
[2018-07-08 13:53] LABS: ABSOLUTE NEUTROPHILS 6.9 thou/uL (1.4-8.2); PLATELET ESTIMATE INCREASED
[2018-07-08 13:55] LABS: ANISOCYTOSIS 2+
--- NOTE | 2018-07-08 15:14 | NUR ---
Nutrition: pt admitted with UTI. No room yet, remains in ER. Consulted due to tube feeding. Familiar with pt from previous admit. Pt usually eats oral diet plus ensure in addition to tube feeds. Prior intake 50% of needs. If diet is ordered REC Pivot 1.5 formula to run at 50 mL/hr x 12 hrs overnight (50% of needs). If pt remains NPO, REC Pivot 1.5 to run at 50 mL/hr x 24 hrs (100% of needs). IVFs have been started for hydration.
[2018-07-08 15:27] VITALS: BP 106/66
[2018-07-08 16:06] VITALS: BP 123/64
[2018-07-08 16:23] VITALS: BP 106/66
--- NOTE | 2018-07-08 19:46 | NUR ---
Assumed care of patient when arrived from ER this afternoon. Patient is alert and oriented x4. With #6 Shiley trach, covered with speaking valve. Patient able to follow commands and make needs known. Quadriplegic, but with limited movement in both upper and lower extremities. Able to use Yaunker by self and use soft-touch call light. Vitals are stable. Admission history, assessment and education completed. IVF started per orders. Wounds to sacrum, left and right ischial tuberosity cleaned, dressings changed and pictures taken and placed in chart. After dressing changes, Dr. Gomez ordered Dakins solution to be used BID and culture order of sacral wound. Passed along to next shift. Low airloss mattress pump and Prafo boots ordered. Patient with Peg tube - to resume nightly feeds per dietary recommendation and okay for PO diet per Dr. Nuñez. Colostomy and suprapubic catheter. Fall precautions in place. Patient with complaints of generalized pain unrelieved by PRN Oxy IR. Notified physician, IV pain medications orders received. PRN Fentanyl given with partial relief of pain. Patient not yet progressing towards POC. Will continue to monitor.
[2018-07-08 20:11] VITALS: BP 108/65
[2018-07-09 03:01] VITALS: BP 113/71
--- NOTE | 2018-07-09 04:22 | NUR ---
ASSUMED CARE AT START OF SHIFT PT C/O GENRALIZED PAIN MEDICATED APROX EVERY 2 HOURS DURING THIS SHIFT PT TURNED EVERY 2 HOURS, TF PER ORDERED, TOLERATING WELL. DISCUSSED PLAN OF CARE AND AGREEABLE. DUMPER MOLD CLEANER SHOW NSR-ST . WILL CONINTUE WITH CURRENT PLAN OF CARE AND WILL REPORT CHANGES OR ABNORMAL FINDINGS
[2018-07-09 06:35] LABS: ABSOLUTE NEUTROPHILS 5.6 thou/uL (1.4-8.2); BASOPHILS 0.7 % (0.0-2.0); EOSINOPHILS 2.3 % (0.0-3.0); HEMATOCRIT 29.2 % (42.0-52.0); HEMOGLOBIN 9.2 gm/dL (14.0-18.0); LYMPHOCYTES 14.6 % (24.0-44.0); MCH 26.4 pg (26.0-34.0); MCHC 31.5 g/dL (28.0-37.0); MCV 83.8 fL (80.0-100.0); MONOCYTES 8.9 % (1.0-8.0); POLYS 73.5 % (36.0-66.0); RBC 3.48 mil/uL (4.50-6.00); RDW 19.8 % (10.5-14.5); WBC 7.6 thou/uL (4.0-11.0)
[2018-07-09 06:37] LABS: PLATELET COUNT 526 thou/uL (150-400)
[2018-07-09 06:43] LABS: CALCIUM 8.8 mg/dL (8.5-10.1); CREATININE 0.5 mg/dL (0.7-1.3); MAGNESIUM 1.6 mg/dL (1.8-2.4)
[2018-07-09 06:51] LABS: POTASSIUM 4.8 mmol/L (3.5-5.1)
[2018-07-09 07:27] VITALS: BP 105/71
[2018-07-09 08:04] LABS: ANISOCYTOSIS 2+
--- NOTE | 2018-07-09 08:43 | EKG ---
[address] [address] ELECTROCARDIOGRAM REPORT Name: SETH POTTS Room #: 361- [facility] IN ..#: [id number] ������������������ Admission: 07/08/18 ������������������ Attend Phys: Jovany Nuñez MD Discharge: ������������������ Date of : 55 Report #: [id number] ����������������������������������������������������������������� [id number] THIS REPORT FOR: //name// [facility] ED Test Date: 2018-07-08 Test Time: 12:20:19 Pat Name: SETH POTTS Department: Room: [facility] Gender: M Health Technician: LE : 1955 Requested By: Edie Sr Order Number: [id number] MD: Eduard Paul Measurements Intervals [place] Rate: 121 P: 86 MD: 125 QRS: 76 QRSD: 62 T: 84 QT: 291 QTc: 413 Interpretive Statements Sinus tachycardia Nonspecific T abnormalities, lateral leads Compared to ECG 04/20/2018 15:38:21 T-wave abnormality now present ST (T wave) deviation no longer present Electronically Signed On 07-09-2018 8:43:04 CDT by Eduard Paul [email or web address] ��������������������������������������������� <ELECTRONICALLY SIGNED> ���������������������������������������� By: Eduard Paul MD ��������������������������������������������� 07/09/18 0843 1220 1220 Eduard Paul MD /EPI
--- NOTE | 2018-07-09 11:31 | NUR ---
ORDERS FOR PT EVAL AND TREAT RECEIVED. Pt IS FROM HOME WHERE HE RECEIVES CARE 7 DAYS/WEEK FROM FAMILY OR CAREGIVER. Pt IS A QUADRIPLEGIC FROM [place] IN 2016. HAS LIMITED MOVEMENT IN BILAT UEs AND LEs. Pt LIVES AT HOME WITH FAMILY. RAMP TO ENTER. HAS ALL NEEDED DME AT HOME. NURSING ALREADY PROVIDING PRESSURE RELIEF/POSITIONING. SPOKE WITH RN. Pt HAS PRAFO BOOTS WELL FOR PRESSURE RELIEF. Pt NOT APPROPRIATE FOR PT IN THE ACUTE SETTING. ACUTE PT TO SIGN OFF.
[2018-07-09 15:28] VITALS: BP 115/78
--- NOTE | 2018-07-09 17:59 | NUR ---
PT REPORTS GENERALIZED PAIN 12/15... INCREASED PAIN MEDS TODAY...ALTERNATING PO AND IV PAIN MEDS...
[2018-07-09 20:30] VITALS: BP 143/82
[2018-07-10] VITALS (12 sets, daily range): BP systolic 93–160; BP diastolic 59–140
[2018-07-10 04:26] LABS: HEMATOCRIT 24.1 % (42.0-52.0); HEMOGLOBIN 7.5 gm/dL (14.0-18.0); MCH 26.3 pg (26.0-34.0); MCHC 31.1 g/dL (28.0-37.0); MCV 84.4 fL (80.0-100.0); RBC 2.85 mil/uL (4.50-6.00); RDW 19.6 % (10.5-14.5); WBC 6.9 thou/uL (4.0-11.0)
--- NOTE | 2018-07-10 04:29 | NUR ---
complain of pain tonight, he has taken his oxycodone and iv diluadid tonight. his tubefeedings stopped at midnight. he is alert and oriented and cooperative. careplan reviewed. progressing slowly toward discharge goals.
[2018-07-10 04:50] LABS: CALCIUM 8.5 mg/dL (8.5-10.1); CREATININE 0.4 mg/dL (0.7-1.3); POTASSIUM 4.3 mmol/L (3.5-5.1)
--- NOTE | 2018-07-10 15:10 | HC ---
[facility] [place] [address] CONSULTATION Name: SETH POTTS Maliha Room #: 361-P [facility] IN M.R.#: [id number] Admission: 07/08/18 ������������������ Attend Phys: Jovany Nuñez MD Discharge: ������������������ Date of : 55 Report #: [id number] THIS REPORT FOR: //name// CC: FAM unknown Jovany Nuñez DATE OF SERVICE: 07/09/2018 TYPE OF REPORT: Infectious diseases consultation. REASON FOR CONSULTATION: I was asked to evaluate concerning pelvic wound infection. HISTORY OF PRESENT ILLNESS: The patient is a 62-year-old quadriparetic gentleman who was just hospitalized this past month. He was discharged on the 20 of June. He had evidence of multidrug resistant Acinetobacter and pansensitive pseudomonas involvement of his ischial wound. Treated with IV antibiotic therapy. He was discharged home, only to return now with low grade fever, darkening urine and worsening wounds. The patient is quadriparetic. He has a tracheostomy. He has chronic basilar infiltrate on the right. He has had a moderate amount of tracheal secretions. Denies any rigors. He has had no new skin lesions developed. He has a colostomy and a PEG tube. He has a suprapubic catheter. He has no central venous access currently. REVIEW OF SYSTEMS: A 10-point review of systems is negative other than what is described above. ALLERGIES: ALPRAZOLAM, CODEINE, LISINOPRIL and VIOXX. MEDICATIONS: As noted on his MAY, which were reviewed. Currently on cefepime and minocycline. PAST MEDICAL HISTORY: Quadriplegia since 2016, diabetes, hypothyroidism, tracheostomy, head and neck cancer, hepatitis C, pelvic decubiti, malnutrition, anemia, dysphagia with a PEG tube, suprapubic catheter and diverting colostomy. FAMILY HISTORY: Noncontributory. SOCIAL HISTORY: Nonsmoker. No significant alcohol intake. PHYSICAL EXAMINATION: VITAL SIGNS: Maximum temperature was 38.2, now afebrile; pulse 102; respiratory rate 19 and blood pressure 105/71. GENERAL: He was alert and cooperative. He was cachectic. SKIN: With large sacral decubitus with a good granulation tissue base with bilateral ischial wounds with fibrinous debris. No palpable adenopathy. [address] [address] CONSULTATION Name: SETH POTTS Maliha Room #: 361-P [facility] IN [facility].#: [id number] Admission: 07/08/18 ������������������ Attend Phys: Jovany Nuñez MD Discharge: ������������������ Date of : 55 Report #: [id number] HEENT: Eyes, without scleral icterus. Mouth without mucositis. Tracheostomy with no surrounding erythema or drainage. He has a Passy-Shadyside valve in place at this time. LUNGS: Consolidation in the right base posteriorly. HEART: Regular, without murmur, gallop or rub. ABDOMEN: Firm with unremarkable PEG tube and suprapubic catheter with no surrounding erythema or drainage. The colostomy site was normal with no surrounding erythema or tenderness. NEUROLOGICAL: He was quadriparetic. Cranial nerves intact. Mood normal. LABORATORY STUDIES: Hemoglobin 9.2 and WBC 7.6. Creatinine 0.5. Urinalysis with bacteriuria. RADIOLOGICAL DATA: Chest x-ray with persistent right lower lobe infiltrate and small effusion. Blood cultures are negative today. Procalcitonin 0.14. ESR 125. CRP 80. IMPRESSION: 1. Complicated pelvic wound infection with suspected underlying osteomyelitis. He has multidrug resistant Acinetobacter identified last month. This is in addition to Pseudomonas, which was pansensitive. He has a suprapubic catheter with colonization. No evidence of pyelonephritis at this point. 2. Marked deconditioning and malnutrition. 3. Quadriplegia. 4. Persistent right lower lobe infiltrate with poor clearance of secretions, most likely cause. 5. Head and neck cancer. RECOMMENDATIONS: Agree with current antibiotic coverage. The patient is to undergo surgical debridement early next week. We will reassess following these surgical findings and await culture results. ��������������������������������������������� <ELECTRONICALLY SIGNED> ���������������������������������������� By: Dimitri Cortez MD ��������������������������������������������� 07/10/18 1510 1234 0626 Dimitri Cortez MD /nt
--- NOTE | 2018-07-10 18:00 | NUR ---
SURGERY SENT 2 SPECIMENS TO LAB.. TISSUE AND BONE...ONE WAS SUPPOSED TO BE SENT TO PATH AND ONE TO MICRO BUT BOTH WERE SENT TO PATH..LAB HAS BEEN WORKING TO FIND SPECIMEN AND CORRECT THE DISPOSITION..DR CHANDLER NOTIFIED OF POTENTIAL PROBLEM.
--- NOTE | 2018-07-10 20:09 | NUR ---
PT WENT TO SURGERY @ 1215 TO HAVE SACRAL WOUND DEBRIDED...DRESSINGS C/D/I WHEN RETURNED TO FLOOR...
[2018-07-11 02:09] LABS: GLYCOHEMOGLOBIN (HGB A1C) 5.2 % (4.8-5.6)
--- NOTE | 2018-07-11 02:18 | NUR ---
PATIENT IS ALERT AND ORIENTED. PATIENT IS Q2 TURN PATIENT REFUSES SOME TURNS. DRESSINGS CHANGED AND PICTURE TAKEN. PATIENT HAS SCDS ON. PATIENT IS A FEEDER. RYLIEN HAS HS PEG TUBE FEEDING (PIVIOT AT 50CC). PAITENT IS ACHS. PATIENT IS A PARAPLEGIC (SENSATIONS STILL PRESENT). PATIENT HAS A SUPRAPUBLIC CATH AND A COLOSTOMY. PATIENT HAS A TRACH #8 DMITRIY CAPPED WITH SPEAKING VALVE, NO CUFF. PATIENTS PAIN IS TOLERABLE WITH MEDICATION. PATIENT HAS SPASMS THAT ARE NOT TREATED WITH MEDICATION. WILL PASS ON. PATIENT HAS SOME FOOT DROP AND CONTRACTIONS. PATIENT IS RESTING COMFORTABLY IN BED. WCM. PATIENT IS PROGRESSING TO GOALS.
[2018-07-11 04:09] VITALS: BP 121/82
[2018-07-11 06:14] LABS: HEMATOCRIT 22.8 % (42.0-52.0); HEMOGLOBIN 7.2 gm/dL (14.0-18.0); MCH 26.3 pg (26.0-34.0); MCHC 31.7 g/dL (28.0-37.0); MCV 83.1 fL (80.0-100.0); RBC 2.75 mil/uL (4.50-6.00); RDW 19.1 % (10.5-14.5); WBC 10.3 thou/uL (4.0-11.0)
[2018-07-11 06:25] LABS: CALCIUM 7.9 mg/dL (8.5-10.1); CREATININE 0.5 mg/dL (0.7-1.3); POTASSIUM 4.4 mmol/L (3.5-5.1)
[2018-07-11 06:58] VITALS: BP 109/65
[2018-07-11 11:43] VITALS: BP 134/93
--- NOTE | 2018-07-11 15:27 | NUR ---
WOUND CONSULT: PT. WAS SEEN TODAY BY DR. GUTIÉRREZ AND MYSELF. PT. HAD SURGICAL DEBRIDEMENT OF HIS WOUNDS YESTERDAY BY DR. CHANDLER. PT. REQUEST THAT WOUND CARE TEAM WAIT TILL TOMORROW TO LOOK AT WOUNDS. PT. IS VERY WELL KNOWN TO THE WOUND CARE TEAM AND SUFFERS FROM CHRONIC STAGE 4 PRESSURE ULCERS TO HIS RIGHT ISCHIAL TUBEROISTY AND SACRUM ALONG WITH A STAGE 3 PRESSURE ULCER TO HIS LEFT ISCHIAL TUBEROSITY. RECOMMENDATIONS: WOUND CARE TO ALL WOUNDS: GENTLY CLEANSE AREA WITH WOUND CLEANSER OR NORMAL SALINE, PACK WITH DAKIN MOIST KERLIX, COVER WITH ABD, SECURE WITH TAPE, COMPLETE CARES BID. TURN Q2 HOURS KEEP PT. OFF WOUNDS MUCH POSSIBLE KEEP ON MAGDALENO MATRESS. PT. AND STAFF NURSE WERE INSTRUCTED ON PLAN OF CARE.
[2018-07-11 15:50] VITALS: BP 112/63
--- NOTE | 2018-07-11 16:52 | NUR ---
INITIAL ASSESSMENT: Received consult for discharge planning. PATTIE reviewed chart and spoke with nursing and attending physician. Pt was admitted from home due to chronic ischial and sacral osteomyelitis. Pt is s/p debridement. Pt with hx of quadriplegia and has chronic trach in place. Pt has a peg tube and colostomy. Pt is currently on IV abx. Pt was discharged home from [facility] on IV abx last month. PATTIE met with pt at bedside. Introduced role of SW. Pt is alert/orientated. Pt confirmed he lives at home with family. Pt has HH services through [facility] and has Medicaid in-home care 5 hrs per day. PATTIE discussed with pt the possibility of going to [facility] for wound care services. Pt declines stating, he will return home and resume his in-home care. PATTIE is following to assist as needed with discharge planning. SUBJECTIVE: []Questions about tracheostomy removal. SOme pain. OBJECTIVE: []Afebrile. VSS. Saturations normal on room air. Lungs clear. Heart no gallops. Abdomne with diverting colostomy, PEG, cystostomy. Decubitus dressings intact. Awaiting repeat culture results. Labs and medications reviewed
--- NOTE | 2018-07-11 18:33 | NUR ---
PT HAS EXPRESSED PAIN IS BETWEEN 8 AND 10 AND MEDICATED WITH OXY IR AND DIALUDID WITH FAIRLY GOOD PAIN RELIEF OBTAINED...
[2018-07-11 19:15] VITALS: BP 136/69
[2018-07-12 00:15] VITALS: BP 120/92
[2018-07-12 04:43] VITALS: BP 121/75
[2018-07-12 06:27] LABS: HEMATOCRIT 22.8 % (42.0-52.0); HEMOGLOBIN 7.2 gm/dL (14.0-18.0); MCH 26.3 pg (26.0-34.0); MCHC 31.6 g/dL (28.0-37.0); MCV 83.3 fL (80.0-100.0); RBC 2.74 mil/uL (4.50-6.00); RDW 19.4 % (10.5-14.5); WBC 8.2 thou/uL (4.0-11.0)
[2018-07-12 06:42] LABS: CALCIUM 8.6 mg/dL (8.5-10.1); CREATININE 0.6 mg/dL (0.7-1.3)
[2018-07-12 07:20] VITALS: BP 94/59
--- NOTE | 2018-07-12 07:55 | NUR ---
PATIENT IS ALERT AND ORIENTED. PATIENT IS Q2TURN. PATIENT IS A PARAPLEGIC WITH CONTRACTIONS. MINIMAL MOVEMENT TO UPPER EXTREMITIES. PATIENT IS NSR ON TELE. PATIENT IS TUBE FEED FROM 2100- 0900 AT 50ML/HR. PATIENT HAS A COLOSTOMY. PATIENT IS SUPRAPUBLIC CATH. PATIENT HAS A TRACH #8 UNCUFFED SHIELY. PATIENT USES SPEAKING VALVE ALL THE TIME. DRESSING CHANGED AND INTACT. PATIENTS PAIN IS CONTROLLED WITH MEDICATION. PATIENT IS RESTING COMFORTABLY IN BED WCM.
[2018-07-12 12:00] VITALS: BP 115/73
--- NOTE | 2018-07-12 15:19 | NUR ---
dp sent home health referral to [facility], unknown dc date at this time.
--- NOTE | 2018-07-12 15:28 | NUR ---
PATTIE reviewed chart and spoke with nursing and attending physician. Attending physician is recommending pt go to an LTAC facility when ready for discharge for continued wound care. PATTIE met with pt at bedside to provide update and discuss LTAC referral. Pt reports he has been to both [facility] and [facility]. Pt requests SW to contact his niece, Lita, to discuss LTAC placement. Pt states that he wants to go back home. PATTIE spoke with pt's niece via phone to provide update and discuss discharge plan. Pt's niece is adamant about pt returning home and resuming services through [facility]. SW explained that pt may have wound vac placed and will need PO abx for 6-8 weeks per ID. Pt's niece states that [facility] LTAC sent pt to [facility] and they were not happy with the care at [facility]. Pt's niece [facility] Pt's niece is not agreeable with plan for LTAC to evaluate pt. wedding planner to fax clinical updates to [facility] for review. PATTIE updated attending physician. PATTIE is following to assist as needed with discharge planning.
[2018-07-12 16:00] VITALS: BP 108/65
--- NOTE | 2018-07-12 16:25 | NUR ---
ASSUMED CARE AT 0700, SHIFT ASSESSMENT DONE, MEDS GIVEN, VSS. MEDICATION GIVEN THROUGH PEG TUBE. REPORTED PAIN, PRN IV AND ORAL PAIN MEDS GIVEN PER eMAR, TOOK PAIN MED BY MOUTH. Q2 TURN, SUPRA-PUBIC CATHETER IN PLACE. COLOSTOMY PRODUCING BROWN STOOL. TUBE FEEDING AT NIGHT. ON IV FLUIDS AND ANTIBIOTICS. WILL CONTINUE TO ASSESS AND ASSIST WITH ADLs NEEDED.
--- NOTE | 2018-07-12 17:14 | NUR ---
WOUND FOLLOW UP: PT. WAS SEEN TODAY BY DR. GUTIÉRREZ AND MYSELF. PT. WOUNDS ARE CLINICALLY BETTER AT THIS TIME POST DEBRIDEMENT. PT. IS AGREEABLE TO APPLICATION OF A WOUND VAC. THIS WILL BE APPLIED TOMORROW. RECOMMENDATIONS: CONTINUE WITH CURRENT PLAN OF CARE. PT. AND STAFF NURSE WERE INSTRUCTED ON PLAN OF CARE.
[2018-07-12 20:59] VITALS: BP 113/69
[2018-07-13 04:29] VITALS: BP 114/69
--- NOTE | 2018-07-13 07:48 | NUR ---
SLEPT PART OF SHIFT. WATCHING TV FREQUENTLY. PAIN MEDICATION GIVEN Q2H WITH NOTED RELIEF. TURNED EVERY 2 HOURS FOR COMFORT AND SKING CARE. REFUSED TURN AT 0200. MAINTAINS SAFE ENVIRONMENT. WORKING ON GOALS AND PLAN OF CARE FOR NOC. PROGRESSING SLOWLY TOWARDS DISCHARGE GOALS. CONTINUE TO ASSES.
[2018-07-13 07:50] VITALS: BP 108/66
--- NOTE | 2018-07-13 09:07 | PATH ---
[facility] [address] [place] [address] PATHOLOGY RPT PROCEDURE Name: ABRAHAMCAROLE Room #: 361-P [facility] IN .R.#: [id number] ������������������ Admission: 07/08/18 ������������������ Date of : 55 Discharge: Report #: [id number] Path Case #: [id number] [facility] Accession Number: [id number] . 01 Material submitted: . sacrum - SACRAL WOUND . 01 Clinical history: . Infected decubitus ulcer . 02 Diagnosis: Sacral wound, debridement: - Skin and subcutaneous tissue with marked acute inflammation as well as ulceration, consistent with debridement tissue. - Skeletal muscle showing marked acute inflammation as well as reactive changes. (IUV/db; 07/12/2018) LBQ/07/12/2018 . 02 Electronically signed: . Keli Youngblood MD, Pathologist NPI- [id number] . 01 Gross description: . The specimen is received in formalin, labeled "Carole Abraham, sacral wound", are two irregular segments of post, indurated necrotic skin and possible post-brown muscle measuring 8.2 x 3.4 x 1.5 cm and 3.5 x 1.8 x 1.3 cm. Grants Director tissue is submitted in A1-A2. (SWS; 07/11/2018) . . . . . . . . / . 02 Pathologist provided ICD-10: L08.9, L98.499 . 02 CPT . 142075 Specimen Comment: A courtesy copy of this report has been sent to Specimen Comment: [phone], . Specimen Comment: Report sent to / DR BRICE [address] [address] PATHOLOGY RPT PROCEDURE Name: CAROLE ABRAHAM A Room #: 361-P [facility] IN [facility]#: [id number] ������������������ Admission: 07/08/18 ������������������ Date of : 55 Discharge: Report #: [id number] Path Case #: [id number] Performed at: 01 [facility] [address] [facility] [address], [place] [id number] MD Renato Foster MD Phone: [phone] Performed at: [address] [id number] MD Keli Youngblood MD Phone: [phone]
--- NOTE | 2018-07-13 11:03 | NUR ---
ASSUMED CARE AT 0700, SHIFT ASSESSMENT DONE, MEDS GIVEN VIA PEG TUBE. TAKES OXYCODONE BY MOUTH. WOUND PICTURE TAKEN AND WOUND VAC APPLIED BY WOUND CARE TEAM THIS AM. REPORTED PAIN, PRN PAIN MEDS GIVEN. SUPRAPUBIC CATHETER AND COLOSTOMY IN PLACE. BREATHING WELL. WILL CONTINUE TO ASSESS AND ASSIST WITH ADLs NEEDED.
[2018-07-13 11:38] VITALS: BP 107/60
--- NOTE | 2018-07-13 14:14 | NUR ---
PATTIE reviewed chart and spoke with nursing and attending physician. PATTIE spoke with cash clerk as well. Per cash clerk, pt is agreeable with referral to [facility] yesterday afternoon. PATTIE met with pt at bedside to discuss referral process for [facility] to evaluate pt. PATTIE explained that LTAC can provide a higher level of wound care that he can receive at home. Pt would benefit from continued medical mgmt as well. SW discussed that he has been to both [facility] and [facility]. Pt states he wants to go home. PATTIE updated attending physician, who will meet with pt today to discuss. PATTIE is following to assist as needed with discharge planning.
[2018-07-13 16:52] VITALS: BP 109/66
--- NOTE | 2018-07-13 17:00 | NUR ---
WOUND FOLLOW UP: PT. WAS SEEN TODAY BY DR. GUTIÉRREZ AND MYSELF. PT. WAS STARTED ON WOUND VAC THERAPY. PT. TOLERATED WELL. RECOMMENDATIONS: CONTINUE WITH CURRENT PLAN OF CARE. PT. AND STAFF NURSE WERE INSTRUCTED ON PLAN OF CARE.
[2018-07-13 21:13] VITALS: BP 104/82
[2018-07-14 05:45] VITALS: BP 114/68
[2018-07-14 07:46] VITALS: BP 106/57
--- NOTE | 2018-07-14 09:15 | NUR ---
ostomy care; pouch edges loose, new pouch roxy 2piece system w/ adapt ring applied under wafer, stoma pink viable budded w/ loose brown stool present, peristomal skin intact, clinical staff anesthesiologist informed of care, supplies placed at bs
[2018-07-14 12:30] VITALS: BP 106/69
--- NOTE | 2018-07-14 14:18 | NUR ---
Spoke with mykel and SOFYA London at 1348 to discuss concerns of care upon return to home. Mykel who is an [employer] and works every weekend stated she completely understood our concerns and has informed the patient and other family members that a possible call to hotline would occur sooner than later given the patients decline and mixed messaging to hospital staff. She states that patient has a long history of substance abuse and notifies the ambulance to take him to [facility] as his MD is at [facility] and limits at best his narcotic use. Patient has a history of eliciting specialists giving false medical history such as recently going to a manager contracting stating he had kidney cancer and had too much pain. Once mykel was contacted she explained this to the manager contracting. She went on to say he has had a history of pain seeking behavior for many years. She states he does not require 02 once discharges and then once home takes medications which lower his respiratory rate and refuses tube feeding or po intake. Subsequently his respiratory needs increase while his nutritional status declines. The mykel is completely open to [facility] or [facility] for an LTAC but as she states the wound originated in [place] she and he do not wish to return. Spoke with PATTIE who will get in touch with [facility] and [facility] for possible referral. Notified GAGGERMAN of above and in conjunction with MD's will continue to follow for discharge planning.
--- NOTE | 2018-07-14 15:45 | NUR ---
DISCHARGE PLANNING. LTAC PLACEMENT RECOMMENDED FOR PATIENT AT DISCHARGE, ONCE MEDICALLY READY. PATIENT REFERRAL PACKET FAXED TO [facility], VERIFIED RECEIVED. GREGORIO TO REVIEW REFERRAL FOR PLACEMENT NEEDS AND NOTIFY CM ONCE COMPLETE. UNIT CM/SW AWARE. FOLLOWING TO ASSIST WITH DISCHARGE NEEDS.
--- NOTE | 2018-07-14 15:58 | NUR ---
PATTIE reviewed chart and spoke with nursing and attending physician. Pt is progressing towards goals for discharge. Director of Case Mgmt spoke with pt's niece/DPOA, Lita, via phone to discuss discharge plan and recommendation from clinical team for pt to go to an LTAC for continued wound care and medical mgmt. Pt's niece states that she would be agreeable with [facility] and [facility]. PATTIE contacted [facility] liaison, who states their [place] location does not accept [place]-Medicaid. PATTIE met with pt at bedside to provide update and discuss discharge plan. PATTIE discussed that pt's niece/DPOA is agreeable with referral to [facility]. Pt agreeable with referral. PATTIE notified [facility] liaison. facilities planner to fax clinical info for review. PATTIE updated attending physician. PATTIE is following to assist as needed with discharge planning.
[2018-07-14 17:49] VITALS: BP 105/65
--- NOTE | 2018-07-14 20:00 | NUR ---
PT RATES PAIN 10////ALTERNATING WITH DILAUDID AND OXY IR WITH FAIR PAIN RELIEF..
[2018-07-14 20:55] VITALS: BP 109/70
--- NOTE | 2018-07-15 04:09 | NUR ---
PATIENT IS PROGRESSING SLOWLY IN HIS CARE PLAN. VITAL SIGNS STABLE WITH PATIENT HAVING NO COMPLAINTS OF NAUSEA. PATIENT DID COMPLAIN OF PAIN FREQUENTLY WHICH WAS TREATED EFFECTIVELY THROUGH MEDICATION AND NON PHARMACOLOGICAL INTERVENTION. BREATHING STABLE EVIDENCED BY OXYGENATION CHECKS WITH PATIENT REMAINING ON ROOM AIR. WOUND VAC REMAINS IN PLACE AND IS DRAINING EFFECTIVELY. FREQUENT TURNS OFFERED WITH PATIENT REFUSING AT TIMES. TUBE FEED OVERNIGHT PER PROTOCOL WITH NEARLY NO RESIDUAL. GOOD OUTPUT THROUGH SUPRAPUBIC CATH AND COLOSTOMY. CONTINUE PLAN OF CARE.
[2018-07-15 04:34] VITALS: BP 112/73
[2018-07-15 08:41] VITALS: BP 105/64
--- NOTE | 2018-07-15 13:38 | NUR ---
PATTIE reviewed chart and spoke with nursing and attending physician. PATTIE discussed case with [facility] liaison, who states they are at their maximum number of [place] beds at this time. Pt will be placed on their waiting list. Director of Case Mgmt aware and will contact [facility]. PATTIE is following to assist as needed with discharge planning.
--- NOTE | 2018-07-15 15:42 | NUR ---
WOUND FOLLOW UP: PT. WAS SEEN TODAY BY DR. GUTIÉRREZ AND MYSELF. PT. WOUND VAC WAS CHANGED TODAY BY THE WOUND CARE TEAM. PT. TOLERATED WELL. RECOMMENDATIONS: CONTINUE WITH CURRENT PLAN OF CARE. PT. AND STAFF NURSE WERE INSTRUCTED ON PLAN OF CARE.
[2018-07-15 16:32] VITALS: BP 102/63
--- NOTE | 2018-07-15 17:20 | HC ---
[facility] [place] [address] CONSULTATION Name: SETH POTTS Room #: 361-P [facility] IN M.R.#: [id number] Admission: 07/08/18 ������������������ Attend Phys: Jovany Nuñez MD Discharge: ������������������ Date of : 55 Report #: [id number] THIS REPORT FOR: //name// CC: FAM unknown Jovany Nuñez DATE OF SERVICE: 07/11/2018 REFERRAL PHYSICIAN: Dr. Nuñez. REASON FOR REFERRAL: Chronic trach, question trach wean. HISTORY OF PRESENT ILLNESS: The patient is a 62-year-old gentleman who was brought to the ED with progressive weakness. A pulmonary consultation was requested regarding possibility of tracheostomy tube decannulation. The patient has a significant medical history. He was diagnosed with epiglottis cancer. The patient also developed diskitis involving the C3-C5 resulting in partial quadriplegia. He has some movement in his right upper extremity. He has chronic and recurrent decubitus wounds, malnutrition, hepatitis C. His family cares for him at home. Family noted dark urine recently. With weakness, they brought to the Emergency Room. Currently, he is awake, alert, in no distress. PAST MEDICAL HISTORY: As mentioned above including chronic anemia, hypothyroidism, possible quadriplegia in 2016 with C3-C5 diskitis, chronic trach since then, stage 4 sacral decubitus ulcer, strep abscess involving C3-C5, dysphagia status post PEG, suprapubic catheter, colostomy. ALLERGIES: ALPRAZOLAM, CODEINE, LISINOPRIL, VIOXX, reaction not specified. MEDICATIONS: List reviewed in the MAR. He is also on Eliquis. FAMILY HISTORY: Noncontributory. SOCIAL HISTORY: Denies any tobacco or alcohol use. REVIEW OF SYSTEMS: Notable for progressive weakness, debility, and malnutrition. PHYSICAL EXAMINATION: GENERAL: He is awake, alert, and in no apparent distress. VITAL SIGNS: Temperature is 98.3 degrees Fahrenheit, pulse 104, respiratory rate is 18, blood pressure 114/69 mmHg, saturation 98%. [facility] [address] [place] [address] CONSULTATION Name: POTTSSETH CRUZ Room #: 361-P [facility] IN [facility]#: [id number] Admission: 07/08/18 ������������������ Attend Phys: Jovany Nuñez MD Discharge: ������������������ Date of : 55 Report #: [id number] HEENT: Normocephalic, atraumatic. NECK: Status post chronic trach with a Passy-Laila valve. CHEST: Breath sounds are fair due to poor effort, decreased in the right base. CARDIOVASCULAR: Normal S1, S2. No murmurs or gallop. ABDOMEN: Soft, nontender, status post PEG tube placement. GENITOURINARY: Deferred. RECTAL: Deferred. EXTREMITIES: No cyanosis, clubbing, edema. MUSCULOSKELETAL: Notable for moderate muscle atrophy and cachexia. LABORATORY DATA: Chest x-ray shows vnxp-[id number] right-sided pleural effusion, which appears to be chronic. Tracheostomy in the midline in the upper thoracic area. Electrolytes are normal. WBC 10,300, hemoglobin 7.2, platelets are normal. IMPRESSION: 1. Chronic tracheostomy in this 62-year-old gentleman with a history of quadriplegia since 2016. He has progressive muscle weakness and debility. He is also malnourished. Please see comments below. 2. Quadriplegia due to C3-C5 diskitis, with Streptococcus abscess. 3. History of epiglottic cancer. 4. Diabetes mellitus type 2. 5. Hypothyroidism. 6. History of hepatitis C. 7. Recurrent large stage 4 sacral decubitus with malnutrition. 8. Chronic anemia. 9. Status post PEG due to dysphagia. 10. Status post suprapubic catheter along with colostomy. 11. Chronic right-sided pleural effusion. RECOMMENDATION AND DISCUSSION: With quadriplegia along with progressive weakness and debility, the patient is at high risk for developing recurrent respiratory compromise. Therefore, tracheostomy decannulation would not be advisable in this patient. Options are to continue Passy-Alpine valve use. If he remains stable without significant pulmonary impairment, one might consider changing the tracheostomy to a tracheal button in the future. Continue current care, antibiotics, wound care, nutritional support. In regards of pleural effusion, this appears to be chronic and stable from prior chest x-ray. We will continue to follow for now. [address] [address] CONSULTATION Name: SETH POTTS Room #: 361-P [facility] IN M.R.#: [id number] Admission: 07/08/18 ������������������ Attend Phys: Jovany Nuñez MD Discharge: ������������������ Date of : 55 Report #: [id number] Thank you for this consultation. ��������������������������������������������� <ELECTRONICALLY SIGNED> ���������������������������������������� By: Lele Weeks MD ��������������������������������������������� 07/15/18 1720 1130 2137 Lele Weeks MD /nt
--- NOTE | 2018-07-15 17:35 | NUR ---
Assumed care of patient at 0700. Vitals have been stable. Patient is alert and oriented x4; gross upper extremity movement and able to use soft touch call light to make needs known. Speaking valve in place, maintains oxygen saturations on RA. Complaints of generalized pain and shoulder pain. Pain seems to remain uncontrolled, despite PRN medications and repositioning. Did order Diclofenac gel for shoulder pain and patient reports an improvement in pain for shoulders. Tolerated overnight tube feed well. Patient on PO diet throughout day and eats about 40% of meals; does drink 100% of Ensure drink. Easily fatigues with PO intake. Wound vac care completed by wound care team today. Wound vac remains to continuous suction with good seal. Suprapubic cath with adequate output. Colostomy intact. Repositioning every 2 hours, as patient allows, but refuses repositioning to left side. Attempting to progress towards POC. Will continue to monitor.
[2018-07-15 19:50] VITALS: BP 113/71
[2018-07-16] VITALS (7 sets, daily range): BP systolic 92–114; BP diastolic 56–74
--- NOTE | 2018-07-16 03:16 | NUR ---
PATIENT IS ALERT AND ORIENTED. PATIENT HAS SUPRAPUBLIC CATH. PATIENT HAS COLOSTOMY. PATIENT HAS HS PEG TUBE FEEDING. PATIENT IS ACHS ACCUCHECKS. PATIENT HAS A WOUND VAC INTACT CONTINOUS SUCTION 125. PATIENT HAS #8 TRACH SHIELY UNCUFFED. PATIENT GOT A PARTAL BATH. PATIENTS PAIN IS TREATED WITH PAIN MEDICATION. PATIENT IS Q2 TURN. PATIENT IS RESTING COMFORTABLY IN BED. [facility]
[2018-07-16 05:24] LABS: HEMOGLOBIN 6.6 gm/dL (14.0-18.0)
[2018-07-16 05:25] LABS: HEMATOCRIT 20.6 % (42.0-52.0); MCH 26.7 pg (26.0-34.0); MCV 83.3 fL (80.0-100.0); RBC 2.48 mil/uL (4.50-6.00); RDW 19.3 % (10.5-14.5); WBC 8.8 thou/uL (4.0-11.0)
[2018-07-16 05:26] LABS: CALCIUM 8.5 mg/dL (8.5-10.1); CREATININE 0.5 mg/dL (0.7-1.3); POTASSIUM 4.5 mmol/L (3.5-5.1)
--- NOTE | 2018-07-16 14:04 | NUR ---
Assumed care of patient at 0700. Vitals have been stable. Alert and oriented x4, able to make needs known. Speaking valve to trach. Complaints of shoulder and generalized pain; partially controlled with PRN meds and Diclofenac gel. Tolerated overnight tube feed. Patient has not eaten as much PO intake compared to yesterday. Is still drinking Ensure Boosts with meals. Colostomy intact. Suprapubic cath with adequate output. Wound vac in place to negative suction with good seal. Repositioning as patient allows, but does refuse turns or repositioning at times. Hemoglobin low today; one unit PRBCs ordered. Awaiting blood from lab. Verbal consent verified with patient and second RN for blood transfusion. Attempting to progress towards POC. Will continue to monitor.
--- NOTE | 2018-07-17 03:55 | NUR ---
Patient making slow progress towards outcome goals. Oxygenation optimanl on room air. Chronic shoulder and hip pain, medicated with Oxycodone and Hydromormphoe with some relief. Tolerating tube feeding, currently infusing. Able to use special call light with in reach at all times. Vital signs and rhythm stable. Wound vac intact. Colostomy draining. Suprapubic cath draining.
[2018-07-17 04:30] VITALS: BP 106/60
[2018-07-17 05:06] LABS: HEMATOCRIT 25.3 % (42.0-52.0); HEMOGLOBIN 8.1 gm/dL (14.0-18.0); MCH 26.7 pg (26.0-34.0); MCHC 32.1 g/dL (28.0-37.0); MCV 83.1 fL (80.0-100.0); RBC 3.04 mil/uL (4.50-6.00); RDW 18.1 % (10.5-14.5); WBC 9.9 thou/uL (4.0-11.0)
[2018-07-17 05:27] LABS: CALCIUM 8.7 mg/dL (8.5-10.1); CREATININE 0.3 mg/dL (0.7-1.3); POTASSIUM 5.1 mmol/L (3.5-5.1)
[2018-07-17 08:11] VITALS: BP 102/69
[2018-07-17 11:59] VITALS: BP 110/71
--- NOTE | 2018-07-17 16:23 | NUR ---
Assumed care of patient at 0700. Vitals have been stable. Alert and oriented x4, able to make needs known. Speaking valve on; maintaining oxygen saturations on RA. Complaints of chronic pain; partially controlled with PRN pain mediciations. Patient has not been asking for narcotics as often as compared to previous shift. Repositioning every couple hours, or as patient allows. Colostomy intact. Suprapubic cath with adequate output. Wound vac to continuous negative suction with good seal. Tolerating overnight tube feeds. Not as much of an appetite today; complaints of some nausea with lunch. Still drinks Ensure supplements, even if does not eat food. Hemoglobin improved today after blood transfusions yesterday. Progressing towards POC. Will continue to monitor.
[2018-07-17 16:55] VITALS: BP 110/64
[2018-07-17 19:45] VITALS: BP 110/64
[2018-07-18 03:30] VITALS: BP 100/68
--- NOTE | 2018-07-18 04:32 | NUR ---
Patient making slow progress towards outcome goals. Vital signs and rhythm stable. Oxycodone and Hydromorphone alternating for some pain control. Toleating tube feeding. Suprapubic cath and colostomy and wound vac intact.
[2018-07-18 07:47] VITALS: BP 98/59
[2018-07-18] MEDS ORDERED: MIRALAX17 GM PO (15:12)
[2018-07-18] MEDS ORDERED: MINOCIN50 MG PO (15:12)
[2018-07-18] MEDS ORDERED: VOLTAREN GEL 1100 G2 TOP (15:12)
[2018-07-18] MEDS ORDERED: CIPRO I.V.400 MG/200 IV (15:12)
--- NOTE | 2018-07-18 15:21 | NUR ---
DISCHARGE NOTE: PATTIE reviewed chart and spoke with nursing and attending physician. Pt is medically stable for discharge to LTAC today. PATTIE discussed with [facility] liaison. [facility] is able to accept pt pending insurance authorization. PATTIE met with pt at bedside to discuss discharge plan. Pt is agreeable with plan. PATTIE notified by [facility] liaison at 1455 that insurance authorization has been given. PATTIE updated health advocate. [facility] requests 1900 ambulance transportation time, as they will need to arrange for pt to have a low air loss mattress. PATTIE updated attending physician. Awaiting final discharge orders at this time. Chart copy requested. Nursing to call report to [phone] prior to discharge. PATTIE is following to finalize discharge.
--- NOTE | 2018-07-18 15:47 | NUR ---
ostomy care; pouch on x4 days, changed using 2 piece system roxy w/ adapt ring, stoma pink viable budded w/ large amt loose brown stool, peristomal skin intact, cooperative w/ care, supplies at bs, will cont to follow prn, staff occupational therapist informed of care
[2018-07-18 17:58] VITALS: BP 104/62
--- NOTE | 2018-07-18 18:43 | NUR ---
ASSUMED PATIENT CARE AT 0715. A&OX4. COMPLAINTS OF GENERALIZED PAIN. DILAUDED AND OXY GIVEN WHEN DUE. PATIENT NEEDS TO BE FED. Q2 TURN. PATIENT ACCEPTED AT [facility] TODAY. WOUND VAC TAKEN DOWN AND WET TO DRY PLACED. REPORT GIVEN TO LLOYD AT [facility]. WAITING FOR FD TO TRANSFER.
== END 2018-07-18 19:08 | DRG 853 ==
LOC: ER 11:59 → 3W 14:20 → EROBS 14:20 → 3W 15:50
PROVIDERS: Emergency Medicine; Hospitalist; Nurse Practitioner; Surgery; ADMIT Internal Medicine
PROC: 0QB30ZZ Excision of Left Pelvic Bone, Open Approach (ICD-10-PCS; 2018-07-10)
PROC: 0QB20ZZ Excision of Right Pelvic Bone, Open Approach (ICD-10-PCS; 2018-07-10)
PROC: 0QB10ZZ Excision of Sacrum, Open Approach (ICD-10-PCS; 2018-07-10)
PROC: 30233N1 Transfusion of Nonautologous Red Blood Cells into Peripheral Vein, Percutaneous Approach (ICD-10-PCS; principal; 2018-07-16)
DX: A41.9 Sepsis, unspecified organism (principal); L89.154 Pressure ulcer of sacral region, stage 4; L89.323 Pressure ulcer of left buttock, stage 3; L89.314 Pressure ulcer of right buttock, stage 4; G82.50 Quadriplegia, unspecified; J96.90 Respiratory failure, unspecified, unspecified whether with hypoxia or hypercapnia; J18.1 Lobar pneumonia, unspecified organism; M86.8X8 Other osteomyelitis, other site; E46 Unspecified protein-calorie malnutrition; N39.0 Urinary tract infection, site not specified; Z68.1 Body mass index [BMI] 19.9 or less, adult; M46.22 Osteomyelitis of vertebra, cervical region; T83.510A Infection and inflammatory reaction due to cystostomy catheter, initial encounter; S37.29XA Other injury of bladder, initial encounter; E03.9 Hypothyroidism, unspecified; D64.9 Anemia, unspecified; E11.65 Type 2 diabetes mellitus with hyperglycemia; B96.5 Pseudomonas (aeruginosa) (mallei) (pseudomallei) as the cause of diseases classified elsewhere; R31.9 Hematuria, unspecified; E86.0 Dehydration; X58.XXXA Exposure to other specified factors, initial encounter; Z16.20 Resistance to unspecified antibiotic; Y84.6 Urinary catheterization as the cause of abnormal reaction of the patient, or of later complication, without mention of misadventure at the time of the procedure; E11.69 Type 2 diabetes mellitus with other specified complication; Z88.5 Allergy status to narcotic agent; Z88.8 Allergy status to other drugs, medicaments and biological substances; Z88.1 Allergy status to other antibiotic agents; Z79.899 Other long term (current) drug therapy; Z93.0 Tracheostomy status; Z93.1 Gastrostomy status; Z93.3 Colostomy status; Z85.21 Personal history of malignant neoplasm of larynx; Z86.19 Personal history of other infectious and parasitic diseases; Z87.891 Personal history of nicotine dependence; Z86.718 Personal history of other venous thrombosis and embolism; Z90.5 Acquired absence of kidney; Y92.89 Other specified places as the place of occurrence of the external cause; Y93.89 Activity, other specified; Y99.8 Other external cause status
CPT/HCPCS: 10879; 50010; 50101; 50386; 50403; 57119; 57120; 62110; 62900; 70005

== ENCOUNTER 2019-01-23 17:20 | Inpatient (IN) | payer OTHER ==
[~2019-01-23] VITALS: Ht 167.6 cm; Wt 49.9 kg
--- NOTE | ~2019-01-23 | HC ---
[facility] [place] [address] CONSULTATION Name: SETH POTTS Maliha Room #: 455-P [facility] IN ..#: [id number] Admission: 01/23/19 Attend Phys: Erwin Self Discharge: 01/31/19 Date of : 55 Report #: [id number] THIS REPORT FOR: //name// CC: Erwin Self Sha Akkulugari DATE OF SERVICE: 01/24/2019 CHIEF COMPLAINT: Sacral pressure ulceration. HISTORY OF PRESENT ILLNESS: This is a 63-year-old male patient with whom I am familiar from multiple prior hospitalizations. He was admitted to the hospital after arriving by EMS from [facility] for unresponsiveness. He is awake and alert when I had seen him. He has a history of quadriplegia, stage 4 sacral pressure ulceration and diabetes. He does complain of generalized pain mainly musculoskeletal related pain from muscle spasms. Denies sacral pain at this time. PAST MEDICAL HISTORY: Positive for history of quadriplegia secondary to diskitis and spinal abscess in 2016, C3-C5. He has a history of stage 4 sacral pressure ulceration. He has a suprapubic catheter, PEG tube, previous colostomy, hypothyroidism, diabetes and hypertension. SOCIAL HISTORY: He is previous smoker. No alcohol use. FAMILY HISTORY: Noncontributory. ALLERGIES: ALPRAZOLAM, CODEINE, LISINOPRIL, AND VIOXX. MEDICATIONS: Include Gabapentin, sertraline, duloxetine, ferrous sulfate, pantoprazole, melatonin, ondansetron, ascorbic acid. REVIEW OF SYSTEMS: Limited 14-point review of systems as much as is obtained. It is listed in the history of present illness. The patient does deny chest pain or current shortness of breath. Denies sacral pain. Does have pain in his extremities from muscle spasm. Other systems in a 14-point review of systems are either unobtainable due to communication difficulties are negative. PHYSICAL EXAMINATION: VITAL SIGNS: At this time include temperature 37.0, pulse 93, respiratory rate 18, blood pressure of 113/59. GENERAL: This is a chronically ill-appearing male patient who appears to be in mild discomfort. HEENT: Head normocephalic. NECK: Demonstrates tracheostomy. [address] [address] CONSULTATION Name: SETH POTTS Room #: 455-P [facility] IN [facility].#: [id number] Admission: 01/23/19 Attend Phys: Erwin Self Discharge: 01/31/19 Date of : 55 Report #: [id number] LUNGS: Diminished. HEART: Regular rhythm. ABDOMEN: Soft. Bowel sounds present. Colostomy PEG tube noted. Sacral region demonstrates stage 4 presacral pressure ulcer is much improved since I last saw him. It is clean, granulating and is now flushed with the skin level. It is not overtly infected. There is evidence of new epithelialization. No exposed deep structures noted at this time. EXTREMITIES: Lower extremities show muscle wasting. NEUROLOGIC: The patient is quadriplegic. CLINICAL IMPRESSION: 1. Stage 4 sacral pressure ulceration, improving. 2. Quadriplegia secondary to prior spinal abscess in 2016. 3. Respiratory failure, requiring tracheostomy. 4. History of hepatitis C. 5. Type 2 diabetes mellitus. 6. Hypertension. 7. Severe protein-calorie malnutrition. 8. Suprapubic catheter. 9. Status post colostomy. RECOMMENDATIONS: He will be placed on low air loss mattress with q. 2 hour turning and positioning, PRAFO boots to the lower extremities at all times. He will need maximal nutrition to assist with wound healing and continuation of current medications, Puracol Ag to the sacral foam Wednesday, Wednesday, Wednesday and as needed to the sacral region. I appreciate being asked to see him in consultation. By: [id number] Santana Gomez MD /nt
[~2019-01-23 17:20] MED LIST changes: +CIPRO I.V.400 MG/200 IV; +MINOCIN50 MG PO; +MIRALAX17 GM PO; +VOLTAREN GEL 1100 G2 TOP
[2019-01-23 18:39] LABS: HEMOGLOBIN 9.6 gm/dL (14.0-18.0); MCH 26.8 pg (26.0-34.0); MCHC 31.1 g/dL (28.0-37.0); MCV 86.3 fL (80.0-100.0); PLATELET COUNT 283 thou/uL (150-400); RBC 3.59 mil/uL (4.50-6.00); RDW 16.8 % (10.5-14.5); WBC 18.3 thou/uL (4.0-11.0)
[2019-01-23 18:52] LABS: CALCIUM 8.8 mg/dL (8.5-10.1); CREATININE 1.2 mg/dL (0.7-1.3); POTASSIUM 4.5 mmol/L (3.5-5.1)
[2019-01-23 18:57] LABS: ALBUMIN 2.5 g/dL (3.4-5.0); TOTAL BILIRUBIN 0.3 mg/dL (<0.1-1.0); TOTAL PROTEIN 8.4 g/dL (6.4-8.2)
[2019-01-23 18:58] LABS: URINE BLOOD 3+ (Negative); URINE CLARITY CLEAR; URINE COLOR YELLOW; URINE GLUCOSE-RANDOM* NEGATIVE (Negative); URINE KETONES NEGATIVE (Negative); URINE PROTEIN (DIPSTICK) 2+ (Negative)
[2019-01-23 19:05] LABS: ICTOTEST (BILI CONFIRMATORY) Negative (Negative); URINE BILIRUBIN NEGATIVE (Negative); URINE LEUKOCYTES-REFLEX 2+ (Negative); URINE NITRITE-REFLEX POSITIVE (Negative)
[2019-01-23 19:11] LABS: CASTS None Seen /LPF (None Seen); SQUAMOUS 0-3 Few /LPF (0-3); URINE RBC >20 Many /HPF (0-2)
[2019-01-23 19:12] LABS: TRIPLE PHOSPHATE CRYSTALS 0-3 Few /LPF (None Seen)
[2019-01-23 19:41] LABS: ABSOLUTE NEUTROPHILS 16.8 thou/uL (1.4-8.2); ANISOCYTOSIS 1+
[2019-01-23 21:00] VITALS: BP 105/51
[2019-01-23 21:17] VITALS: BP 111/59
[2019-01-23] MEDS ORDERED: CYMBALTA30 MG PER TUBE (23:00)
[2019-01-23] MEDS ORDERED: CHILDREN'S15 MG/1 M2 PER TUBE (23:02)
[2019-01-23] MEDS ORDERED: PROTONIX40 M2 PER TUBE (23:04)
[2019-01-23] MEDS ORDERED: MELATIN3 MG PER TUBE (23:06)
[2019-01-23] MEDS ORDERED: PHOS-NAK PACKE1 EACH PER TUBE (23:10)
[2019-01-23 23:38] VITALS: BP 95/53
[2019-01-24] MEDS ORDERED: ONDANSETRON HCL4 M3 PO (01:23)
[2019-01-24] MEDS ORDERED: ALLERGY EYE DRO10 M1 OPHTHALMIC (01:24)
[2019-01-24] MEDS ORDERED: VITCB500GO PER TUBE (01:26)
[2019-01-24] MEDS ORDERED: GABAPENTIN600 M1 PO (01:37)
[2019-01-24] MEDS ORDERED: SERTRALINE HCL100 MG PO (01:38)
--- NOTE | 2019-01-24 03:27 | NUR ---
PT WAS AN ER ADMIT, PT ARRIVED VIA EMS FROM [facility]. PT IS ADMITTED WITH SEPSIS AND PNA. PT WAS FOUND UNRESPONSIVE. PT IS STABLE UPON ARRIVAL TO THE FLOOR. NO FAMILY AT BEDSIDE. PT IS ALERT BUT CONFUSED. PT IS STABLE. PT SEEN BY NURSE PRACTITIONER. ADMISSION ASSESMENT AND EDUCATION COMPLETED. MEDICATION ORDERS PLACED. SCHEDULED MEDS ADMINISTERED TO PT. VERBALIZES GENERALIZED PAIN. PT IS RESTING COMFORTABLY. Q2 TURNS, SUPRAPUBIC DOMINGUEZ, COLOSTOMY ANF TRACH IN PLACE. CONTINUE TO MONITOR PATIENT.
[2019-01-24 05:50] VITALS: BP 159/137
--- NOTE | 2019-01-24 08:06 | EKG ---
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: : 1955 Requested By: Carina Fernandez Order Number: [id number] MD: Jonathon Mcmanus Measurements Intervals [place] Rate: 133 P: 69 CA: 120 QRS: 79 QRSD: 74 T: 78 QT: 313 QTc: 466 Interpretive Statements Sinus tachycardia Otherwise no significant abnormality Compared to ECG 07/08/2018 12:20:19 T-wave abnormality no longer present Electronically Signed On 01-24-2019 8:06:06 [employer] by Jonathon Mcmanus [email or web address] <ELECTRONICALLY SIGNED> By: Jonathon Mcmanus MD, [facility] [id number] Jonathon Mcmanus MD, [facility] /EPI
[2019-01-24 08:09] VITALS: BP 96/58
--- NOTE | 2019-01-24 09:55 | NUR ---
OSTOMY CARE unsure how long pouch has been on? cooperative, pouch changed using roxy 2 piece cut to fit pouch, adapt ring applied under wafer, stoma pink viable budded, peristomal skin intact, loose brown stool noted, supplies placed at bs, aoc aadc operations staff officer informed of care, will follow prn
--- NOTE | 2019-01-24 10:24 | NUR ---
Continue TF as ordered, however if prefer to change to 24 hr continuous schedule, then would need a rate of 55ml/hr
[2019-01-24 12:46] VITALS: BP 116/72
--- NOTE | 2019-01-24 16:30 | NUR ---
met with patient who is A/Ox3 requesting pain medication, alerted RN. Patient resides at [facility]. Plan return once stable. Sp with DPOA niece and verified plans. Patient with hx of quadraplegia, trach, oxygen, tube feeding and colostomy. Updated [place] today. casemgt following.
[2019-01-24 17:34] VITALS: BP 113/59
--- NOTE | 2019-01-24 17:43 | NUR ---
PT CARE ASSUMEDA APPROX 0700. ASSESSMENTS CHARTED. DENIES SOA. REPORTS INTERMITTENT GENERALIZED PAIN. PT REPORTS ADEQUATE PAIN MANAGEMENT. TOLERATING TUBE FEEDING WITH ZERO RESIDUALS. TOLERATING POC. FAMILY GIVEN CLINICAL UPDATES. DENIES QUESTIONS AND CONCERNS REGARDING POC DOES PT. TURNING PT Q2HRS AND PRN. WOUND CARE AND OSTOMY CARE DONE PER [facility]. VSS. BS WNL. NO DISTRESS NOTED.
[2019-01-24 20:34] VITALS: BP 128/64
[2019-01-25 04:51] VITALS: BP 115/71
--- NOTE | 2019-01-25 05:28 | NUR ---
ASSUMED PT CARE AT 1900. NO SIGN OF DISTRESS NOTED IN PT. PT IS LAYING COMFORTABLY IN BED. FEEDING TURNED OFF. CATHETER IN PLACE. ASSESSMENT COMPLETED AND DOCUMENTED ON PT. PAIN MEDS ADMNISTERED TO PT VIA PEG TUBE. FALL PRECAUTION IN PLACE. SCHEDULED MEDS ADMINISTERED VIA PEG TUBE. NO FURTHER NEEDS AT THIS TIME.
[2019-01-25 07:50] VITALS: BP 97/57
--- NOTE | 2019-01-25 12:09 | NUR ---
ALERT. SPEECH SOFT, DIFFICULT TO DISCERN. TUBE FEEDING, IVF, IV ANTIBIOTICS, PO MEDS CRUSHED PER PEG TUBE, COLOSTOMY EMPTIED, SUPERPUBIC CATH TO DD, ISOLATION. TURN Q2H, COMPLETE CARES. SR PER TELE. WILL CONTINUE TO FOLLOW CLOSELY.
[2019-01-25 13:15] VITALS: BP 120/68
--- NOTE | 2019-01-25 13:52 | NUR ---
FAXED CLINICAL UPDATE TO [facility] OF RECEIVED CONFIRMATION AND LEFT MSG WITH KELSI IN ADM.
[2019-01-25 16:00] VITALS: BP 106/64
--- NOTE | 2019-01-25 20:36 | HC ---
[facility] [place] [address] CONSULTATION Name: SETH POTTS Maliha Room #: 207-P [facility] IN M.R.#: [id number] Admission: 01/23/19 Attend Phys: Erwin Self Discharge: Date of : 55 Report #: [id number] THIS REPORT FOR: //name// CC: Erwin Dalton Akkulugari DATE OF SERVICE: 01/24/2019 INFECTIOUS DISEASE CONSULTATION. REASON FOR CONSULTATION: I was asked to evaluate concerning sepsis and multiple sources. HISTORY OF PRESENT ILLNESS: The patient is a 63-year-old [facility] resident with quadriplegia, chronic tracheostomy, PEG tube and suprapubic catheter, diverting colostomy with nonhealing pelvic wounds. Presents now with decreased mental status and leukocytosis. A low-grade fever identified as well. He has had purulent sputum production. Remains on oxygen per nasal cannula. No chest pain reported. No hemoptysis. No nausea or vomiting noted. Stool from his colostomy has been loose. He has had nonhealing pressure wounds, mostly over his sacrum. 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 The patient was unable to give much more detail due to his compromised state and respiratory issues with his tracheostomy. He was markedly debilitated. ALLERGIES: ALPRAZOLAM, CODEINE, LISINOPRIL and VIOXX. MEDICATIONS: As noted on his MAR including gabapentin, sertraline, duloxetine, iron, pantoprazole, melatonin, ondansetron, eye drops, vitamin C. Started on Zyvox and Zosyn after his admission. 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 FAMILY HISTORY: Noncontributory. SOCIAL HISTORY: Past smoker, no significant alcohol intake. Resides in a [facility]. REVIEW OF SYSTEMS: Ten-point review was otherwise negative other than what has been described above. [address] [address] CONSULTATION Name: SETH POTTS Maliha Room #: 207-P [facility] IN [facility].#: [id number] Admission: 01/23/19 Attend Phys: Erwin Self Discharge: Date of : 55 Report #: [id number] PHYSICAL EXAMINATION: VITAL SIGNS: He is afebrile and hemodynamically stable. He was cachectic in appearance. He had contractures of both upper and lower extremities. SKIN: Extensive sacral decubitus with mostly granulation tissue formation. Small wound to his right ischium. No fluctuance or surrounding cellulitis. No palpable adenopathy. HEENT: Eyes without scleral icterus. Mouth without mucositis. NECK: Increased muscle tone as throughout with tracheostomy and a Passy-Laila valve in place. LUNGS: Clear anteriorly. Scattered crackles heard in the bases bilaterally. HEART: Regular, without murmur, gallop or rub. Right upper extremity PICC site was without erythema or drainage. ABDOMEN: Firm with unremarkable PEG site with no drainage or erythema. His suprapubic catheter was without drainage. His colostomy was healthy in appearance. His sacral wound had good granulation tissue with a small wound to the right ischium. No surrounding cellulitis or fluctuance. EXTREMITIES: With contractures both upper and lower extremities. LABORATORY STUDIES: Reviewed, with creatinine 1.2. Mild elevation in liver function tests. Procalcitonin 4.1. Hemoglobin of 9.6, WBC 18.3, platelet count 283,000. Urinalysis with many rbc's, moderate wbc's, moderate bacteria. Urine culture showing Proteus. Blood cultures showing gram-negative bacilli. Chest x-ray, right effusion with atelectasis, infiltrate, little change from previous film. IMPRESSION: 1. A 63-year-old with quadriplegia, extensive pelvic wounds with gram-negative bacteremia and sepsis, source of which most likely is urinary tract. Other considerations would include pelvic wound, biliary tract, intraabdominal source, less likely pulmonary. 2. Diabetes. 3. Chronic pelvic wounds. 4. Respiratory failure with tracheostomy. 5. Complicated urinary tract infection with suprapubic catheter. RECOMMENDATION: Although the patient has a previous history of multidrug resistant organisms, the source of his bacteremia I am suspecting is his urinary tract infection. He has Proteus growing from his urine and I would expect this would be from his blood as well. We will still await microbiology laboratory confirmation of this. He seems to be improving with Zosyn that was started last evening. We will therefore continue this pending further studies. Continue wound care. Continue respiratory support. Follow up laboratory studies. <ELECTRONICALLY SIGNED> By: Dimitri Cortez MD 01/25/196 [id number] Dimitri Cortez MD /nt
[2019-01-25 21:45] VITALS: BP 120/73
--- NOTE | 2019-01-26 04:14 | NUR ---
ASSUMED PT CARE AT 1900. PT A/O TO SELF, PLACE AND SITUATION. VITAL SIGNS STABLE, ASSESSMENT CHARTED. PAIN ADEQAUTELY MANAGED WITH PAIN MEDICATION. PT ABLE TO SUCTION MOUTH SECRETIONS WITH YONKER. CONTACT PRECAUTIONS MAINTAINED, Q2 TURNS, FREQUENT ROUNDING. PT RESTED WELL THROUGH THE NIGHT. NO ACUTE CHANGES. PROGRESSING TOWARD PLAN OF CARE. WILL CONTINUE TO MONITOR.
[2019-01-26 04:22] LABS: ABSOLUTE NEUTROPHILS 6.1 thou/uL (1.4-8.2); BASOPHILS 0.4 % (0.0-2.0); EOSINOPHILS 1.4 % (0.0-3.0); HEMOGLOBIN 8.3 gm/dL (14.0-18.0); LYMPHOCYTES 10.4 % (24.0-44.0); MCH 26.8 pg (26.0-34.0); MCHC 30.8 g/dL (28.0-37.0); MCV 86.8 fL (80.0-100.0); MONOCYTES 9.1 % (1.0-8.0); PLATELET COUNT 218 thou/uL (150-400); POLYS 78.7 % (36.0-66.0); RDW 17.1 % (10.5-14.5); WBC 7.8 thou/uL (4.0-11.0)
[2019-01-26 04:37] LABS: ALBUMIN 1.7 g/dL (3.4-5.0); CREATININE 0.8 mg/dL (0.7-1.3); PHOSPHORUS 2.2 mg/dL (2.5-4.9); POTASSIUM 3.3 mmol/L (3.5-5.1)
[2019-01-26 05:08] VITALS: BP 139/90
[2019-01-26] MEDS ORDERED: FERROUS SU220 MG/52 PER TUBE (05:42)
[2019-01-26 07:35] VITALS: BP 133/87
[2019-01-26 12:15] VITALS: BP 136/96
[2019-01-26 16:00] VITALS: BP 125/107
--- NOTE | 2019-01-26 18:37 | NUR ---
Pt was assessed on 2L NC of O2 upon morning shift change. pt stated that he didn't need oxygen, weaned the oxygen and pt was 97% on RA. has sustained high O2 sats throughout the day on room air.
[2019-01-26 19:18] VITALS: BP 127/85
[2019-01-27 03:49] VITALS: BP 144/88
--- NOTE | 2019-01-27 05:19 | NUR ---
ASSUMED PT CARE AT 1900, PT IS ALERT, BUT FORGETFUL. PT IS LAYING IN BED. RESTING COMFORTABLY. PT IS STABLE. TRACH, COLOSTOMY, CATHETER IN PLACE. NO SIGN OF DISTRESS NOTED. ASSESSMENT COMPLETED AND DOCUMENTED. SCHEDULED MEDS ADMINISTERED TO PT. Q2H TURNS. PAIN MED ADMINISTERED REQUESTED. CONTINUE TO MONITOR. DENIES ANY NEEDS AT THIS TIME.
[2019-01-27 08:15] VITALS: BP 132/81
--- NOTE | 2019-01-27 09:32 | NUR ---
OSTOMY CARE pouch on 4 days, changed using 2 piece roxy cut to fit appliance, stoma pink viable budded, loose brown stool noted, peristomal skin intact, cooperative, alert, supplies at bs, will cont to follow prn
[2019-01-27 12:10] VITALS: BP 132/68
--- NOTE | 2019-01-27 14:57 | NUR ---
No weekend dc anticipated. Pt trialing on mod diet (puree). Xander melara updated. Likely dc back to ltc there on Wednesday.
--- NOTE | 2019-01-27 15:19 | NUR ---
PT HAS 24F SUPRA PUBIC CATHETER. ADMINISTRATIVE DIETITIAN RN STATED THAT CATHETER WAS NOT DRAINING THROUGH CATHETER TUBING ALL ADMINISTRATIVE DIETITIAN. URINE LEAKING AROUND SITE. PT WAS BLADDER SCANNED BY DAY RN AND RESULT WAS 20CC. ONCE SUPPLIES ARRIVED ON UNIT, RN REPLACED CATHETER WITH NEW 24F CATHETER AND BALLOON WAS INFLATED USING 30CC SALINE. WHEN 1ST CATHETER WAS REMOVED SITE HAD SMALL AMOUNT OF BLOODY DRAINAGE AND SMALL CLOT OF BLOOD PRESENT ON TIP OF CATHETER. NEW CATHETER INSERTED AND PT HAD APPROXIMATELY 10CC OF BLOOD TINGED URINE THROUGH CATHETER TUBING IMMEDIATELY AT INSERTION. WILL CONTINUE TO MONITOR OUTPUT AMOUNT.
--- NOTE | 2019-01-27 15:53 | NUR ---
CALLED 4W AT 1527 TO GIVE REPORT FOR PT TRANSFER. STAFF STATED RN WAS WITH ANOTHER PT AND UNABLE TO TAKE REPORT AT THIS TIME. 4W CALLED AGAIN AT 1552, NO ANSWER TO CALL. WILL TRY AGAIN.
--- NOTE | 2019-01-27 18:43 | NUR ---
PT. CARE ASSUMES 1800. MEDICATIONS NOT ON FLOOR ORDERED FROM PHARMACY. A&OxTO SELF. REPOSTIONED Q2H. NO INSULINE NEEDED NOT INDICATED BY GLOOD GLUCOSE RESULTS. TUBE FEEDING GOING AT ORDERED RATE. NO WATER FLUSHES. COLOSTOMY EMPTIED. BOOTS ON. PT DOES NPT EAT BEEF OR PORK. Q6H BLOODSUGARS. UPPER LOBES DIMISHED
[2019-01-27 20:23] VITALS: BP 130/79
--- NOTE | 2019-01-28 04:11 | NUR ---
PATIENT ALERT AND ORIENTED X4. TURNED FREQUENTLY. IVF INFUSING PER ORDER. BS MONITORED PER ORDER. TF WITH NO RESIDUAL. SUPRA PUBIC CATHETER WITH EMELINA URINE. COLOSTOMY BAG EMPTIED. RESTING QUIETLY.
[2019-01-28 07:40] VITALS: BP 116/74
[2019-01-28 15:10] VITALS: BP 117/71
[2019-01-28 19:41] VITALS: BP 137/86
--- NOTE | 2019-01-28 19:54 | NUR ---
PT. CARE ASSUMED AT 0700. A&O TO SELF AND PLACE. PT. SLEPT MOST OF THE DAY TO REST AND FEELS BETTER NOW. IV ANTIBIOTICS RECEIVED. ISOLATION MAINTAINED. JEVITY RUNNING AT 55ML STARTING AT 1400 RUN FOR 10 HOURS. Q2H TURNS. PT REFUSED FOUR OF THE TURNS. R.UPPER MISLINE IV IS RUNNING, FLUSHES WITH NO BLOOD RETURN. SUPRAPUBIC CATHETER DRAINS WELL. COLOSTOMY NEEDS TO BE BURPED FREQUENTLY. WOUND DRESSING CHANGES M,W,F. PT IS TO DISCHARGS BACK TO [facility] ON WEDNESDAY
--- NOTE | 2019-01-29 02:55 | NUR ---
PATIENT ALERT AND ORIENTED X4. TURNED FREQUENTLY. MEDICATED FOR GENERALIZED PAIN WITH GOOD RESULTS. SUPRA PUBIC CATHETER TO DD W/O COMPLICATION. IVF INFUSING W/O COMPLICATION AND TF INFUSING WITH NO RESIDUAL. MEDS CRUSHED AND PUT IN PEG TUBE. BS MONITORED PER ORDER. RESTING AT TIME OF NOTE. WILL MONITOR.
[2019-01-29 08:10] LABS: ABSOLUTE NEUTROPHILS 7.4 thou/uL (1.4-8.2); BASOPHILS 0.5 % (0.0-2.0); EOSINOPHILS 3.8 % (0.0-3.0); HEMATOCRIT 28.8 % (42.0-52.0); HEMOGLOBIN 9.2 gm/dL (14.0-18.0); MCH 27.2 pg (26.0-34.0); MCHC 31.9 g/dL (28.0-37.0); MCV 85.3 fL (80.0-100.0); MONOCYTES 10.5 % (1.0-8.0); PLATELET COUNT 360 thou/uL (150-400); POLYS 71.2 % (36.0-66.0); RBC 3.38 mil/uL (4.50-6.00); RDW 17.6 % (10.5-14.5); WBC 10.4 thou/uL (4.0-11.0)
[2019-01-29 08:16] VITALS: BP 142/84
[2019-01-29 08:25] LABS: ALBUMIN 2.2 g/dL (3.4-5.0); CALCIUM 8.6 mg/dL (8.5-10.1); CREATININE 0.9 mg/dL (0.7-1.3); POTASSIUM 3.5 mmol/L (3.5-5.1); TOTAL BILIRUBIN 0.1 mg/dL (<0.1-1.0); TOTAL PROTEIN 7.7 g/dL (6.4-8.2)
[2019-01-29 16:05] VITALS: BP 135/74
--- NOTE | 2019-01-29 18:15 | NUR ---
Assumed patient care at 0715. Lynette's vital signs have been stable throughout this shift. Blood sugars continue every six hours. Both ac lunch and ac dinner blood sugars were 129, requiring no Insulin. Patient has been given his pain medication q six hours for "level ten" generalized pain; he reports minimal relief from this medication. Patient would like to have his pain medication every four hours instead. Peg Tube is patent with Jevity 1.5 running continuously at 55mL's per hour. Right upper arm midline is patent with IV ABT's running. No adverse reactions to ABT Therapy. Patient continues on Isolation Precautions for VRE in Urine and MRSA of Nares. POC followed. Will continue to monitor.
[2019-01-29 19:30] VITALS: BP 96/71
--- NOTE | 2019-01-30 05:48 | NUR ---
PATIENT ALERT AND ORIENTED X4. ON BEDREST. IS A QUAD. ABLE TO MOVE R UPPER EXT SOMEWHAT. HAS SOFT TOUCH CALL LIGHT. PEG DRESSING CHANGED. SUPRAPUBIC CATH AND COLOSTOMY INTACT. REMAINS IN ISO FOR MRSA AND VRE. HAS A TRACH THAT IS CAPPED BUT ONLY SPEAKS IN A WHISPER. SLEPT OFF AND ON DURING NIGHT. C/O PAIN WITH MED GIVEN.
[2019-01-30 08:31] VITALS: BP 114/68
--- NOTE | 2019-01-30 09:20 | NUR ---
OSTOMY CARE; pouch on 4days, changed using 2 piece system roxy cut to fit w/ adapt ring under wafer, stoma pink viable budded, peristomal skin intact, large amt loose brown stool, cooperative, medical staff coordinator informed of care, supplies at bs, will cont to follow
--- NOTE | 2019-01-30 13:04 | NUR ---
DISCHARGE PLANNING. UPDATED CLINICAL INFORMATION FAXED TO MARKUS DOLAN OF [facility]. 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 PLAN IS FOR PATIENT TO RETURN ONCE MEDICALLY READY. DISCHARGE ANTICIPATED FOR TOMORROW. KELSI NOTIFIED. FOLLOWING.
--- NOTE | 2019-01-30 13:44 | NUR ---
PATIENT FAMILY (ANATOLY) CALLED REQUESTING PATIENT INFORMATION. UNABLE TO PROVIDE PATIENT CODE WHEN ASKED. WENT INTO PATIENT ROOM TO ASK PATIENT WHAT HIS PREFERENCE WAS. PATIENT TOLD STAFF NOT TO GIVE ANY INFORMATION TO THIS FAMILY MEMBER RIGHT NOW. STATES THAT HE WAS SPEAKING WITH ANATOLY ON THE PHONE AND WAS HUNG UP ON BY HER. INFORMED ANATOLY THAT PATIENT REQUESTS FOR US TO NOT RELEASE INFORMATION ABOUT HIM AT THIS TIME. ANATOLY HUNG UP PHONE ON STAFF.
--- NOTE | 2019-01-30 20:44 | NUR ---
PATIENT REPORTED PAIN NOT WELL MANAGED, PHYSICIAN NOTIFIED AND PAIN MEDICATIONS ORDERS CHANGED. ADMINISTERED TO PATIENT PER ORDERS, REPORTS SOME RELIEF. PATIENT REFUSING MEALS BY MOUTH, ATTEMPTED TO EAT MASHED POTATOES FOR DINNER BUT SPIT INTO YANKER. PATIENT STATES HE DOES NOT FEEL COMFORTABLE SWALLOWING. TUBE FEEDING IN PLACE. FALL PRECAUTIONS IN PLACE, CALLS FOR ASSIST.
--- NOTE | 2019-01-31 03:24 | NUR ---
ASSUMED CARE OF PATIENT AT SHIFT CHANGE. ASSESSMENT CHARTED. MEDICATIONS GIVEN PER EMAR. VSS, O2 SATS WNL ON RA. RT TX GIVEN PER MAY AND TOLERATED WELL. PATIENT IS A&OX4. HE COMMUNICATES WELL BY WHISPERING TO STAFF FOR HELP. PATIENT ALSO HAS A SOFT TOUCH CALL LIGHT HE UTILIZES WHEN NEEDING HELP. PATIENT COMPLAINS OF CONSTANT GENERALIZED PAIN. PRN PAIN MEDS ARE GIVEN Q4 HOURS ROUND THE CLOCK. PATIENT VOICES PARTIAL PAIN RELIEF OF 10/10 TO 7/10. PATIENT STATES PAIN MEDICATION IS NOT EFFECTIVE. REPOSITIONING AND MASSAGE GIVEN NEEDED. PATIENT HAS A RESIDUAL AMOUNT OF 0 AND IS TOLERATING TUBE FEEDING WELL. PATIENT ALSO HAS ITCHINESS, RELIEVED BY SCRATCHING. PATIENT VOICES NO OTHER CONCERNS. PER CM, PLAM IS FOR POSSIBLE D/C TODAY BACK TO [facility] WHERE HE RESIDES. NEW TUBE FEEDING/TUBING HUNG AT 0200. WILL CONTINUE TO MONITOR AND FOLLOW POC TO [facility] WHERE HE RESIDES.
[2019-01-31 07:52] VITALS: BP 86/66
[2019-01-31] MEDS ORDERED: METOCLOPRA10 MG/101 PER TUBE (12:21)
[2019-01-31] MEDS ORDERED: OXYCODONE HCL15 MG PO (12:22)
[2019-01-31] MEDS ORDERED: BACTRIM DS TAB1 EAC1 PER TUBE (12:26)
--- NOTE | 2019-01-31 13:45 | NUR ---
CARE TEAM INDICATED THAT PT IS MEDICALLY STABLE TO DC BACK TO [facility] THIS DAY. ORDERS FAXED. CHART COPY ORDERED. TRANSPORT ARRANGED FOR [phone]. CM NOTIFIED PT AND HIS DPOA ANATOLY YOUNG WITH PT'S PERMISSION. NURSE CALLED REPORT. NO OTHER CM INTERVENTION INDICATED. CASE CLOSED.
--- NOTE | 2019-01-31 14:21 | NUR ---
RECEIVED PT'S CARE AROUND 0730; PT. ON BED; AOX4; REQUESTED PRN PAIN MEDICATION WITH AM MEDICATIONS; DURING ASSESSMENT C/O PAIN OVER BODY; PRN PAIN MEDICATION GIVEN WITH AM MEDICATION THROUGH FEEDING TUBE; RESIDUAL 5ML; DRESSING CHANGED & ASSESSED BY PHYSICIAN EARLY ON THE MORNING; NOON MEDICATIONS GIVEN; D/C ORDERS; PICTURE TAKEN; POOR APPETITE; ASSESSMENT CHARGED; FOLLOWING POC; CALLED FOR REPORT;
== END 2019-01-31 14:49 | DRG 871 ==
LOC: ER 17:20 → EROBS 19:57 → 2N 20:46 → 4W 01-27 17:25
PROVIDERS: Emergency Medicine Emergency Medical Services; Specialist; ADMIT Hospitalist
PROC: 0W9M3ZZ Drainage of Male Perineum, Percutaneous Approach (ICD-10-PCS; principal; 2019-01-26)
DX: A41.50 Gram-negative sepsis, unspecified (principal); L89.154 Pressure ulcer of sacral region, stage 4; J18.9 Pneumonia, unspecified organism; G82.50 Quadriplegia, unspecified; E43 Unspecified severe protein-calorie malnutrition; L02.215 Cutaneous abscess of perineum; E11.9 Type 2 diabetes mellitus without complications; F32.9 Major depressive disorder, single episode, unspecified; E03.9 Hypothyroidism, unspecified; D50.9 Iron deficiency anemia, unspecified; R74.0 Nonspecific elevation of levels of transaminase and lactic acid dehydrogenase [LDH]; R13.10 Dysphagia, unspecified; B96.4 Proteus (mirabilis) (morganii) as the cause of diseases classified elsewhere; J96.21 Acute and chronic respiratory failure with hypoxia; N39.0 Urinary tract infection, site not specified; T83.511A Infection and inflammatory reaction due to indwelling urethral catheter, initial encounter; Z68.1 Body mass index [BMI] 19.9 or less, adult; Z79.4 Long term (current) use of insulin; Z90.5 Acquired absence of kidney; Z93.3 Colostomy status; Z86.718 Personal history of other venous thrombosis and embolism; Z93.1 Gastrostomy status; Z88.6 Allergy status to analgesic agent; Z88.8 Allergy status to other drugs, medicaments and biological substances; Z93.0 Tracheostomy status; Z87.891 Personal history of nicotine dependence
CPT/HCPCS: 10047; 10081